=== PATIENT | female | born 1940 | race Caucasian/White ===

== ENCOUNTER → 2019-05-18 13:54 | Outpatient (BNVA) | payer MEDICARE, OTHER, SELFPAY | PROVIDERS: PCP Nurse Practitioner Family; Visit Provider Nurse Practitioner Family | DX: N39.0 Urinary tract infection, site not specified (principal); R13.10 Dysphagia, unspecified | CPT/HCPCS: 81003 ==

== ENCOUNTER → 2019-07-09 10:25 | Outpatient (BNVA) | payer MEDICARE, OTHER, SELFPAY | PROVIDERS: PCP Registered Nurse; Visit Provider Registered Nurse | DX: R39.9 Unspecified symptoms and signs involving the genitourinary system (principal) | CPT/HCPCS: 81003; 87077; 87086; 87186 ==

== ENCOUNTER → 2019-07-15 10:14 | Outpatient (BNVA) | payer MEDICARE, OTHER, SELFPAY | PROVIDERS: PCP Registered Nurse; Visit Provider Nurse Practitioner Family | DX: R39.9 Unspecified symptoms and signs involving the genitourinary system (principal); J45.990 Exercise induced bronchospasm; N39.0 Urinary tract infection, site not specified | CPT/HCPCS: 81003; 87077; 87086; 87186 ==

== ENCOUNTER → 2019-09-21 11:59 | Outpatient (BNVA) | payer MEDICARE, OTHER, SELFPAY | PROVIDERS: PCP Registered Nurse; Visit Provider Urology | DX: N30.80 Other cystitis without hematuria (principal) | CPT/HCPCS: 80053; 81001 ==

== ENCOUNTER → 2019-10-15 08:13 | Outpatient (BNVA) | payer MEDICARE, OTHER, SELFPAY | PROVIDERS: PCP Registered Nurse; Visit Provider Nurse Practitioner Family | DX: I10 Essential (primary) hypertension (principal); R06.02 Shortness of breath; R53.81 Other malaise; L98.9 Disorder of the skin and subcutaneous tissue, unspecified; R31.9 Hematuria, unspecified; D64.9 Anemia, unspecified; R60.0 Localized edema; R06.00 Dyspnea, unspecified | CPT/HCPCS: 80053 ==

== ENCOUNTER → 2019-11-16 15:00 | Outpatient (BNVA) | payer MEDICARE, OTHER, SELFPAY | PROVIDERS: PCP Registered Nurse; Visit Provider Urology | DX: N39.0 Urinary tract infection, site not specified (principal); R31.29 Other microscopic hematuria | CPT/HCPCS: 80053; 81001 ==

== ENCOUNTER → 2019-11-17 15:47 | Outpatient (BNVA) | payer MEDICARE, OTHER, SELFPAY | PROVIDERS: PCP Registered Nurse; Visit Provider Urology | DX: R31.29 Other microscopic hematuria (principal); N39.0 Urinary tract infection, site not specified | CPT/HCPCS: 88112 ==

== ENCOUNTER 2020-08-22 13:01 | Emergency (ER) | payer MEDICARE, OTHER, SELFPAY ==
[2020-08-22 13:02] VITALS: BP 127/79; PULSE 72; RESP 26; TEMP 37.1; O2SAT 99; BMI 22.4
--- NOTE | 2020-08-22 13:31 | XRR_ITS ---
PROCEDURE INFORMATION: Exam: XR Chest Exam date and time: 08/22/2020 1:57 PM Age: 79 years old Clinical indication: Cough and dyspnea; Prior surgery; Surgery type: Heart, altered mental status, syncope; Additional info: Dyspnea/cough TECHNIQUE: Imaging protocol: XR of the chest. Views: 1 view. COMPARISON: CR Chest 1 [place] [id number] 11/25/2018 4:05 PM FINDINGS: Tubes, catheters and devices: Interval placement of left pacemaker device. Lungs: Stable left calcified hilar nodes and/or mediastinal nodes and/or lung nodules consistent with old granulomatous disease. Pleural spaces: Unremarkable. No pleural effusion. No pneumothorax. Heart/Mediastinum: Stable aortic valve replacement. Vasculature: Calcification of the thoracic aorta and/or great vessels consistent with atherosclerotic vessel disease. Bones/joints: Stable sternotomy. XR/XR chest 1V portable [id number] IMPRESSION: 1. Interval placement of left pacemaker device. 2. Stable aortic valve replacement.
--- NOTE | 2020-08-22 13:31 | W.ED.SYNCOPE ---
HPI - Syncope General: Chief Complaint: Syncope Stated Complaint: SYNCOPE Time Seen by Provider: 08/22/20 13:02 History of Present Illness: HPI narrative: 79-year-old female presents emergency room after syncopal episode at home. is with her at the bedside. She relates that she was sitting at home was about to go to [place] to get up checkup on a pacemaker that was placed 2 weeks ago. He was having rate control issues due to atrial fibrillation, it was ultimately decided to place pacemaker in. She had a syncopal episode and passed out. She denies any recent fever sweats or chills no other illness no shortness of breath or cough she is not having any chest pain now. 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 She is able to answer most questions at this time. MD complaint: loss of consciousness Onset (ago): minute(s) Prodromal symptoms: none Witnessed: Yes - by Bystander Context: at rest Injuries sustained associated with event: none Associated symptoms: Reports weakness; Deny abdominal pain, chest pain, fever(s), headache(s), lightheadedness, nausea, short of breath or vertigo Treatments prior to arrival: none Review of Systems Const: Denies: fever(s) ENMT: Denies: throat pain, ear or mastoid pain, nasal discharge or nasal congestion Card: Denies: chest pain or lightheadedness Resp: Denies: dyspnea, productive cough or non-productive cough GI: Denies: abdominal pain or nausea : Denies: flank pain, difficulty voiding, dysuria, urinary frequency or urinary urgency Skin/Breast: Denies: rash or pruritus Neuro: Denies: headache(s) or vertigo PFSH ED PFSH: Medical History Anxiety Constipation Diverticulosis Dysphagia Dysphagia GERD (gastroesophageal reflux disease) H/O: CVA (cerebrovascular accident) Hypercholesterolemia Hypertension Other microscopic hematuria Recurrent UTI Surgical History H/O colonoscopy yrs ago H/O esophagogastroduodenoscopy never had one H/O mitral valve replacement History of appendectomy History of hysterectomy History of renal stent History of tonsillectomy Family History Brother Cancer Hyperlipidemia Father Heart disease Stroke Sister Bleeding disorder hemorrhaged Other CAD (coronary artery disease) Hypertension Denies family history of Anesthesia complication Social History Smoking and tobacco status: never smoked Alcohol intake: never Lives independently: No Household members: spouse Housing: House Marital status: Current occupational status: disabled Current gender identity: Female Physical Exam Const: COMMON NORMALS: no acute distress GENERAL APPEARANCE: cooperative and comfortable ORIENTATION/CONSCIOUSNESS: Yes awake HENMT: COMMON NORMALS: normocephalic, atraumatic and hearing grossly normal bilaterally HEAD & SCALP: normocephalic and atraumatic Neck/C-Spine: COMMON NORMALS: no JVD Resp: COMMON NORMALS: normal respiratory effort, No retractions, No use of accessory muscles and clear to auscultation bilaterally AUSCULTATION: clear to auscultation bilaterally Cardio: COMMON NORMALS: no JVD, regular rate, regular rhythm and No murmurs present (Cardio) RATE: regular rate RHYTHM: regular rhythm GI: COMMON NORMALS: Soft to palpation and No hepatosplenomegaly present AUSCULTATION: Yes normoactive bowel sounds PALPATION: Yes Soft to palpation, No Tenderness to palpation present (GI), No Guarding due to palpation present (GI) and Yes No hepatosplenomegaly present Extremity: COMMON NORMALS: normal to inspection, capillary refill normal, no clubbing, cyanosis or edema, no calf tenderness and no pedal edema Skin: COMMON NORMALS: no rashes or lesions noted GENERAL SKIN EXAM: no rashes or lesions noted Course Vital Signs: Vital signs: Vital Signs Temperature 98.8 F 08/22/20 13:02 Pulse Rate 93 08/22/20 17:01 Respiratory Rate 18 08/22/20 17:01 Blood Pressure 102/63 08/22/20 14:28 Pulse Oximetry 97 08/22/20 17:01 MDM - Syncope MDM Narrative: Medical decision making narrative: Patient monitored in the ER for a time we are trying to make arrangements to get the pacer interrogated. We were able to establish that she has a different type of pacer the need for monitoring devices to interrogate here are. She will have to go to [place] to get it done. Discussed with her for now we will [facility] they can monitor there she has another episode should return to the emergency room otherwise follow-up tomorrow with cardiology as planned. Lab Data: Attestation: I reviewed the patient's lab results. Labs: Lab Results 08/22/20 08/22/20 08/22/20 Range/Units 14:09 14:09 14:09 WBC 6.7 (4.0-10.0) 10^3/ uL RBC 3.84 L (4.1-5.3) 10^6/u L Hgb 12.2 (11.5-15.3) g/dL Hct 39.3 (37.0-47.0) % MCV 102.3 H (81-99) fL MCH 31.8 (28.0-34.0) pg MCHC 31.0 (30.0-36.0) g/dL RDW 14.6 (12.1-15.1) % Plt Count 233 (130-400) 10^3/c mm MPV 10.1 (7.4-10.4) fL Neut % (Auto) 72.6 % Lymph % (Auto) 18.4 % Sherman % (Auto) 5.2 % Eos % (Auto) 2.5 % Baso % (Auto) 1.0 % Neut # (Auto) 4.83 (1.8-7.7) 10^3/u L Lymph # (Auto) 1.2 (0.8-4.8) 10^3/u L Sherman # (Auto) 0.4 (0.2-0.9) 10^3/u L Eos # (Auto) 0.2 (0.0-0.8) 10^3/u L Baso # (Auto) 0.1 (0.0-0.1) 10^3/u L Nucleated RBC % (a uto) 0 % Nucleated RBCs # 0.0 /100WBC Sodium 145 (136-145) mmol/L Potassium 4.4 (3.5-5.1) mmol/L Chloride 110 H (98-107) mmol/L Carbon Dioxide 27 (22-29) mmol/L Anion Gap 12.4 (5-19) BUN 17 (8-23) mg/dL Creatinine 0.9 (0.5-0.9) mg/dL GFR Calculation Not Reportable Glucose 94 (65-115) mg/dL Calculated Osmolal ity 301 H (285-295) mOsm/k g Calcium 8.5 (8.5-10.5) mg/dL Total Bilirubin 0.6 (0.15-1.2) mg/dL AST 22 (0-32) U/L ALT 14 (0-33) U/L Alkaline Phosphata se 186 H (35-105) IU/L Total Protein 6.7 (6.6-8.7) g/dL Albumin 3.6 (3.5-5.2) g/dL Globulin 3.1 (1.3-4.6) g/dL Urine Color Yellow (Yellow) Urine Appearance Cloudy (CLEAR) Urine pH 7 (5-7) Ur Specific Gravit y 1.015 (1.005-1.030) Urine Protein Neg (Negative) Urine Glucose (UA) Norm (Normal) Urine Ketones Negative (Negative) Urine Blood 3+ H (Negative) Urine Nitrate Negative (Negative) Urine Bilirubin Neg (Negative) Urine Urobilinogen Norm (Negative) mg/dL Ur Leukocyte Kristie ase Trace H (Negative) Urine RBC 15-25 H (0-2) /hpf Urine WBC 10-15 H (0-5) /hpf Ur Squamous Epith Cells 0-4 H (0-5) /hpf Amorphous Sediment Not Reportable Urine Bacteria 1+ H (NONE) /hpf Urine Mucus 1+ /hpf Urine Yeast 2+ H /hpf Discharge Plan Discharge Patient Disposition: Home Clinical Impression: Syncope, Hypertension, Atrial fibrillation, H/O prosthetic mitral valve Condition: Stable Prescriptions: No Action zinc oxide 40 % ointment 1 applic TOPICAL 6XD PRN (Reason: UNKNOWN) RF: 0 acetaminophen 325 mg capsule 325 mg PO DAILY PRN (Reason: Pain) RF: 0 polyethylene glycol 3350 [Miralax] 17 gram/dose powder 17 gm PO DAILY@0800 RF: 0 sennosides [senna] 8.6 mg tablet 17.2 mg PO BID@0800,1999 PRN (Reason: Constipation) RF: 0 magnesium 250 mg tablet 500 mg PO DAILY@0800 RF: 0 aspirin 81 mg tablet,delayed release (DR/EC) 81 mg PO DAILY@1999 RF: 0 dicyclomine 10 mg capsule 10 mg PO QID PRN (Reason: UNKNOWN) RF: 0 docusate sodium 100 mg capsule 100 mg PO BID@799,1999 RF: 0 albuterol sulfate [ProAir HFA] 90 mcg/actuation HFA aerosol inhaler 2 puff INHALATION Q6H PRN (Reason: shortness of breath or wheezing) Qty: 6.7 RF: 0 budesonide [Rhinocort Allergy] 32 mcg/actuation spray,non-aerosol 1 spray INTRANASAL DAILY PRN (Reason: nose bleed) Qty: 8.43 RF: 0 hydrocodone-acetaminophen 5-325 mg Tablet 1 tab PO Q6H PRN (Reason: Pain) RF: 0 donepezil 10 mg Tablet 10 mg PO DAILY@1999 RF: 0 Vitamin B-12 1,000 mcg Tablet 1,000 mcg PO DAILY@0800 RF: 0 linezolid 600 mg Tablet 600 mg PO BID@799,1999 RF: 0 Vitamin D3 25 mcg (1,000 unit) Tablet 25 mcg PO DAILY@0800 RF: 0 TwoCal HN 0.08-2 gram-kcal/mL Liquid 1 ea PO TID@0800,1199,1999 RF: 0 Fish Oil 1,000 mg PO DAILY@0800 RF: 0 multivitamin 1 tab PO DAILY@08 RF: 0 atorvastatin 40 mg tablet 40 mg PO DAILY@1999 RF: 0 enalapril maleate 20 mg tablet 10 mg PO DAILY@0800 RF: 0 Xanax 0.25 mg tablet 0.25 mg PO BID@0630,0 RF: 0 pantoprazole 40 mg tablet,delayed release (DR/EC) 40 mg PO BID@799,1999 RF: 0 metoprolol tartrate 50 mg tablet 75 mg PO BID@799,1999 RF: 0 Eliquis 5 mg tablet 2.5 mg PO BID@799,1999 RF: 0 Discharge Orders: Discharge ED (Routine); Ordered 08/22/20 Ordered By: Star Christine Referrals: Becka Roth FNP [Primary Care Provider] - Discharge Diet: Usual diet Discharge Activity: Limit activity as instructed Patient Instructions: Opioid Safety Activity Restrictions/Additional Instructions: Follow-up with your fancy needleworker tomorrow to have the pacemaker interrogated. Coding Level of Care Code ED Bilingual Social Worker for Daniel Fwd Exam Comprehensive
[2020-08-22] MEDS: sodium chloride 0.9% 500 ML 999 ML IV (14:12)
[2020-08-22 14:17] LABS: Basophils # 0.1 10^3/uL (0.0-0.1); Eosinophils # 0.2 10^3/uL (0.0-0.8); Eosinophils % 2.5 %; Hematocrit 39.3 % (37.0-47.0); Hemoglobin 12.2 g/dL (11.5-15.3); Lymphocytes # 1.2 10^3/uL (0.8-4.8); Lymphocytes % 18.4 %; Mean Corpuscular Hemoglobin 31.8 pg (28.0-34.0); Mean Corpuscular Volume 102.3 fL (81-99); Mean Platelet Volume 10.1 fL (7.4-10.4); Monocytes # 0.4 10^3/uL (0.2-0.9); Monocytes % 5.2 %; Neutrophils # 4.83 10^3/uL (1.8-7.7); Neutrophils % 72.6 %; Nucleated Red Blood Cells % 0 %; Platelet Count 233 10^3/cmm (130-400); Red Blood Count 3.84 10^6/uL (4.1-5.3); Red Cell Distribution Width 14.6 % (12.1-15.1); White Blood Count 6.7 10^3/uL (4.0-10.0)
[2020-08-22 14:28] VITALS: BP 102/63; PULSE 103; RESP 18; O2SAT 98
[2020-08-22 14:41] LABS: Add Urine Microscopic? YES; Bilirubin Urine Neg (Negative); Blood Urine 3+ (Negative); Glucose Urine UA Norm (Normal); Ketones Urine Negative (Negative); Leukocyte Esterase Urine Trace (Negative); Nitrate Urine Negative (Negative); Protein Urine Neg (Negative); Specific Gravity, Urine 1.015 (1.005-1.030); Urine Appearance Cloudy (CLEAR); Urine Color Yellow (Yellow); Urobilinogen Urine Norm (Negative); pH Urine 7 (5-7)
[2020-08-22 14:44] LABS: Alanine Aminotransferase 14 U/L (0-33); Albumin Level 3.6 g/dL (3.5-5.2); Alkaline Phosphatase 186 IU/L (35-105); Anion Gap 12.4 (5-19); Aspartate Amino Transferase 22 U/L (0-32); Blood Urea Nitrogen 17 mg/dL (8-23); Calcium 8.5 mg/dL (8.5-10.5); Carbon Dioxide 27 mmol/L (22-29); Chloride 110 mmol/L (98-107); Globulin 3.1 g/dL (1.3-4.6); Glucose 94 mg/dL (65-115); Osmolality Calculated 301 mOsm/kg (285-295); Potassium 4.4 mmol/L (3.5-5.1); Sodium 145 mmol/L (136-145); Total Bilirubin 0.6 mg/dL (0.15-1.2); Total Protein 6.7 g/dL (6.6-8.7)
[2020-08-22 15:02] LABS: Add Urine Culture? Yes; Bacteria Urine 1+ /hpf; Mucus Urine 1+ /hpf; RBC Urine 15-25 /hpf (0-2); Squamous Epithelial Cell Urine 0-4 /hpf (0-5)
[2020-08-22 17:01] VITALS: PULSE 93; RESP 18; O2SAT 97
[2020-08-22 18:50] VITALS: BP 134/74; PULSE 87; RESP 18; O2SAT 98
[2020-08-22 20:21] VITALS: BP 136/70; PULSE 102; RESP 14; O2SAT 96
== END 2020-08-22 21:03 | disposition home or self-care (01) ==
PROVIDERS: Emergency Provider Family Medicine; PCP Registered Nurse
DX: R55 Syncope and collapse (principal); I48.91 Unspecified atrial fibrillation; Z95.2 Presence of prosthetic heart valve; I10 Essential (primary) hypertension; Z79.82 Long term (current) use of aspirin; Z79.01 Long term (current) use of anticoagulants; Z86.73 Personal history of transient ischemic attack (TIA), and cerebral infarction without residual deficits; Z79.899 Other long term (current) drug therapy
CPT/HCPCS: 71045; 80053; 81001; 85025; 87086; 87106; 96360; 99284; 99291; J7040

== ENCOUNTER 2020-11-07 22:54 | Emergency (ER) | payer MEDICARE, MEDICAID, SELFPAY ==
[2020-11-07 22:57] VITALS: BP 119/47; PULSE 82; RESP 16; TEMP 37.2; O2SAT 97; BMI 24.7
--- NOTE | 2020-11-07 23:07 | CTR_ITS ---
PROCEDURE INFORMATION: Exam: CT Abdomen And Pelvis Without Contrast Exam date and time: 11/07/2020 11:07 PM Age: 79 years old Clinical indication: Other: Vaginal bleeding; Prior surgery; Surgery date: 6+ months; Surgery type: Mitral valve, appy, hyst, renal stent, left hip TECHNIQUE: Imaging protocol: Computed tomography of the abdomen and pelvis without contrast. Radiation optimization: All CT scans at this facility use at least one of these dose optimization techniques: automated exposure control; mA and/or kV adjustment per patient size (includes targeted exams where dose is matched to clinical indication); or iterative reconstruction. COMPARISON: CT pelvis wo con [id number] 03/29/2018 5:16 AM RADIATION DOSE METRICS: Total DLP (mGy-cm): 1035.39 FINDINGS: Tubes, catheters and devices: Pacemaker leads in the heart. Lungs: Calcified granuloma in the left lower lobe. Heart: Mitral annulus calcifications. Liver: Normal. No mass. Gallbladder and bile ducts: Normal. No calcified stones. No ductal dilation. Pancreas: Normal. No ductal dilation. Spleen: Calcified granulomas in the spleen. Adrenal glands: Normal. No mass. Kidneys and ureters: Atrophic left kidney. 8 mm calculus in the right renal pelvis. Mild pelviectasis with mild adjacent fat stranding. Additional calculi in the right kidney measuring up to 7 mm. Stomach and bowel: Large amount of stool in the rectum. Diverticulosis the sigmoid colon. No diverticulitis.. The stomach and small bowel are unremarkable. No obstruction. Appendix: The appendix is not visualized. No secondary signs of appendicitis Intraperitoneal space: Unremarkable. No free air. No significant fluid collection. Vasculature: Atherosclerotic calcifications. No aneurysm. Lymph nodes: Unremarkable. No enlarged lymph nodes. Urinary bladder: Small amount of gas in the urinary bladder is most likely due to catheterization. No wall thickening. Reproductive: The uterus and ovaries are absent. Bones/joints: Compression screws in the proximal left femur. Lumbar curvature and degenerative changes. No acute fracture. Soft tissues: Unremarkable. CT/CT abdomen pelvis con [id number] IMPRESSION: 1. Multiple right renal calculi including an 8 mm calculus in the right renal pelvis. Fat stranding surrounding the right renal pelvis is suspicious for infection of the collecting system. Clinical correlation recommended. 2. Atrophic left kidney. 3. Diverticulosis of the distal colon. Radiation Dose CTDIVOL = (mGy): DLP = 1035.39 (mGy-cm)
--- NOTE | 2020-11-07 23:09 | W.ED.FEMALGU ---
HPI - Female Genitourinary General: Chief complaint: Vaginal Bleeding Stated complaint: VAG BLEEDING Time Seen by Provider: 11/07/20 22:59 Source: patient and EMS Mode of arrival: EMS Limitations: no limitations History of Present Illness: HPI Narrative: 79-year-old female [facility] from [facility] with vaginal bleeding. She states that she had noticed some bleeding this morning when she went to the bathroom. [facility] states that when they change her depends and noticed blood from her vagina. She denies any weakness. She denies any pain. She is on Eliquis. She denies any worsening improving factors. Associated symptoms: Deny abdominal pain, headache(s) or nausea Review of Systems Const: Denies: fever(s), chills, body aches or change in appetite Eyes: Denies: blurry vision or eye discomfort ENMT: Denies: throat pain or dental pain Card: Denies: chest pain Resp: Denies: dyspnea GI: Denies: abdominal pain, nausea, vomiting or diarrhea : Reports: vaginal bleeding Musc: Denies: neck pain or back pain Skin/Breast: Denies: rash Neuro: Denies: headache(s) Psych: Denies: depression Atlon/Lymph: Denies: easy bruising All/Imm: Denies: urticaria PFSH ED PFSH: Medical History Anxiety Constipation Diverticulosis Dysphagia Dysphagia GERD (gastroesophageal reflux disease) H/O: CVA (cerebrovascular accident) Hypercholesterolemia Hypertension Other microscopic hematuria Recurrent UTI Surgical History H/O colonoscopy yrs ago H/O esophagogastroduodenoscopy never had one H/O mitral valve replacement History of appendectomy History of hysterectomy History of renal stent History of tonsillectomy Family History Brother Cancer Hyperlipidemia Father Heart disease Stroke Sister Bleeding disorder hemorrhaged Other CAD (coronary artery disease) Hypertension Denies family history of Anesthesia complication Social History Smoking and tobacco status: never smoked Alcohol intake: never Lives independently: No Household members: spouse Housing: House Marital status: Current occupational status: disabled Current gender identity: Female Physical Exam Const: COMMON NORMALS: no acute distress, patient oriented x3 and healthy appearing HENMT: COMMON NORMALS: normocephalic and atraumatic HEAD & SCALP: normocephalic and atraumatic Eye: COMMON NORMALS: Equal, round and reactive pupils present and EOMs intact bilaterally PUPIL: Yes Equal, round and reactive pupils present Neck/C-Spine: COMMON NORMALS: full ROM and supple Chest: COMMONS NORMALS: normal inspection of the chest and normal palpation of entire chest wall Resp: COMMON NORMALS: normal respiratory effort, No retractions, No use of accessory muscles and clear to auscultation bilaterally AUSCULTATION: clear to auscultation bilaterally Cardio: COMMON NORMALS: regular rate, regular rhythm and No murmurs present (Cardio) RATE: regular rate RHYTHM: regular rhythm GI: COMMON NORMALS: Normal to inspection, nondistended, normoactive bowel sounds present, Soft to palpation, non-tender and no masses PALPATION: Yes Soft to palpation Extremity: COMMON NORMALS: normal to inspection and full ROM Neuro: COMMON NORMALS: patient oriented x3, moves all extremities and no focal motor deficits Psych: COMMON NORMALS: mental status grossly normal, Normal thought process present and cooperative THOUGHT PROCESS: Normal thought process present Skin: COMMON NORMALS: no rashes or lesions noted and no wounds GENERAL SKIN EXAM: no rashes or lesions noted Course Vital Signs: Vital signs: Vital Signs Temperature 98.9 F 11/07/20 22:57 Pulse Rate 86 11/08/20 01:21 Respiratory Rate 18 11/08/20 01:21 Blood Pressure 110/56 11/08/20 01:21 Pulse Oximetry 98 11/08/20 01:21 MDM - Female [facility] Narrative: Medical decision making narrative: Patient presents here with hematuria likely causing the blood in her depends. CT showed renal stone and possible kidney infection. Her white count here is normal and she has no signs of sepsis. Spoke to family in the room they would like her discharged back to [facility] on antibiotics. Will start on Macrobid and have him hold her Eliquis as well. Her hemoglobin here is normal. She is to return if worsening. Lab Data: Labs: Lab Results 11/08/20 11/08/20 11/08/20 Range/Units 00:17 00:17 00:17 WBC 9.4 (4.0-10.0) 10^3/ uL RBC 4.39 (4.1-5.3) 10^6/u L Hgb 12.6 (11.5-15.3) g/dL Hct 40.7 (37.0-47.0) % MCV 92.7 (81-99) fL MCH 28.7 (28.0-34.0) pg MCHC 31.0 (30.0-36.0) g/dL RDW 16.0 H (12.1-15.1) % Plt Count 246 (130-400) 10^3/c mm MPV 10.3 (7.4-10.4) fL Neut % (Auto) 55.5 % Lymph % (Auto) 31.0 % Concho % (Auto) 6.8 % Eos % (Auto) 5.7 % Baso % (Auto) 0.8 % Neut # (Auto) 5.23 (1.8-7.7) 10^3/u L Lymph # (Auto) 2.9 (0.8-4.8) 10^3/u L Concho # (Auto) 0.6 (0.2-0.9) 10^3/u L Eos # (Auto) 0.5 (0.0-0.8) 10^3/u L Baso # (Auto) 0.1 (0.0-0.1) 10^3/u L Nucleated RBC % (a uto) 0 % Nucleated RBCs # 0.0 /100WBC PT 15.70 H (12.1-14.9) SECO NDS INR 1.22 H (0.8-1.2) Sodium 140 (136-145) mmol/L Potassium 3.7 (3.5-5.1) mmol/L Chloride 104 (98-107) mmol/L Carbon Dioxide 24 (22-29) mmol/L Anion Gap 15.7 (5-19) BUN 10 (8-23) mg/dL Creatinine 0.6 (0.5-0.9) mg/dL GFR Calculation Not Reportable Glucose 97 (65-115) mg/dL Calculated Osmolal ity 289 (285-295) mOsm/k g Calcium 9.4 (8.5-10.5) mg/dL Total Bilirubin 0.4 (0.15-1.2) mg/dL AST 10 (0-32) U/L ALT < 5 (0-33) U/L Alkaline Phosphata se 105 (35-105) IU/L Total Protein 7.0 (6.6-8.7) g/dL Albumin 3.5 (3.5-5.2) g/dL Globulin 3.5 (1.3-4.6) g/dL Urine Color (Yellow) Urine Appearance (CLEAR) Urine pH (5-7) Ur Specific Gravit y (1.005-1.030) Urine Protein (Negative) Urine Glucose (UA) (Normal) Urine Ketones (Negative) Urine Blood (Negative) Urine Nitrate (Negative) Urine Bilirubin (Negative) Prot Sulfosalicyli c Acd (Negative) Urine Urobilinogen (Negative) mg/dL Ur Leukocyte Kristie ase (Negative) Urine RBC (0-2) /hpf Urine WBC (0-5) /hpf Ur Squamous Epith Cells (0-5) /hpf Amorphous Sediment Urine Bacteria (NONE) /hpf 11/08/20 Range/Units 00:35 WBC (4.0-10.0) 10^3/ uL RBC (4.1-5.3) 10^6/u L Hgb (11.5-15.3) g/dL Hct (37.0-47.0) % MCV (81-99) fL MCH (28.0-34.0) pg MCHC (30.0-36.0) g/dL RDW (12.1-15.1) % Plt Count (130-400) 10^3/c mm MPV (7.4-10.4) fL Neut % (Auto) % Lymph % (Auto) % Concho % (Auto) % Eos % (Auto) % Baso % (Auto) % Neut # (Auto) (1.8-7.7) 10^3/u L Lymph # (Auto) (0.8-4.8) 10^3/u L Concho # (Auto) (0.2-0.9) 10^3/u L Eos # (Auto) (0.0-0.8) 10^3/u L Baso # (Auto) (0.0-0.1) 10^3/u L Nucleated RBC % (a uto) % Nucleated RBCs # /100WBC PT (12.1-14.9) SECO NDS INR (0.8-1.2) Sodium (136-145) mmol/L Potassium (3.5-5.1) mmol/L Chloride (98-107) mmol/L Carbon Dioxide (22-29) mmol/L Anion Gap (5-19) BUN (8-23) mg/dL Creatinine (0.5-0.9) mg/dL GFR Calculation Glucose (65-115) mg/dL Calculated Osmolal ity (285-295) mOsm/k g Calcium (8.5-10.5) mg/dL Total Bilirubin (0.15-1.2) mg/dL AST (0-32) U/L ALT (0-33) U/L Alkaline Phosphata se (35-105) IU/L Total Protein (6.6-8.7) g/dL Albumin (3.5-5.2) g/dL Globulin (1.3-4.6) g/dL Urine Color Red (Yellow) Urine Appearance Cloudy (CLEAR) Urine pH 8 H (5-7) Ur Specific Gravit y 1.010 (1.005-1.030) Urine Protein 2+ H (Negative) Urine Glucose (UA) Norm (Normal) Urine Ketones Negative (Negative) Urine Blood 3+ H (Negative) Urine Nitrate Negative (Negative) Urine Bilirubin Neg (Negative) Prot Sulfosalicyli c Acd Positive (Negative) Urine Urobilinogen Norm (Negative) mg/dL Ur Leukocyte Kristie ase 1+ H (Negative) Urine RBC Too numerous to c nt H (0-2) /hpf Urine WBC 5-10 H (0-5) /hpf Ur Squamous Epith Cells 0-4 H (0-5) /hpf Amorphous Sediment Not Reportable Urine Bacteria 4+ H (NONE) /hpf Imaging Data: CT Abd/Pel: Attestation: I personally reviewed and interpreted this imaging study as follows: Radiologist's impression: [address] [address] [address] Scan Report Signed Patient: Freda Kline Unit #: [id number] : 1940 Age/Sex: 79 / F ADM Date: 11/07/20 Loc: ER Room/Bed: Attending Dr: Ordering Provider/Ordering MD: Jeffery Lewis MD Date of Service: 11/07/20 Procedure(s): CT abdomen pelvis con [id number] Accession Number(s): [id number] Report Number: [id number] PROCEDURE INFORMATION: Exam: CT Abdomen And Pelvis Without Contrast Exam date and time: 11/07/2020 11:07 PM Age: 79 years old Clinical indication: Other: Vaginal bleeding; Prior surgery; Surgery date: 6+ months; Surgery type: Mitral valve, appy, hyst, renal stent, left hip TECHNIQUE: Imaging protocol: Computed tomography of the abdomen and pelvis without contrast. Radiation optimization: All CT scans at this facility use at least one of these dose optimization techniques: automated exposure control; mA and/or kV adjustment per patient size (includes targeted exams where dose is matched to clinical indication); or iterative reconstruction. COMPARISON: CT pelvis wo con [id number] 03/29/2018 5:16 AM RADIATION DOSE METRICS: Total DLP (mGy-cm): 1035.39 FINDINGS: Tubes, catheters and devices: Pacemaker leads in the heart. Lungs: Calcified granuloma in the left lower lobe. Heart: Mitral annulus calcifications. Liver: Normal. No mass. Gallbladder and bile ducts: Normal. No calcified stones. No ductal dilation. Pancreas: Normal. No ductal dilation. Spleen: Calcified granulomas in the spleen. Adrenal glands: Normal. No mass. Kidneys and ureters: Atrophic left kidney. 8 mm calculus in the right renal pelvis. Mild pelviectasis with mild adjacent fat stranding. Additional calculi in the right kidney measuring up to 7 mm. Stomach and bowel: Large amount of stool in the rectum. Diverticulosis the sigmoid colon. No diverticulitis.. The stomach and small bowel are unremarkable. No obstruction. Appendix: The appendix is not visualized. No secondary signs of appendicitis Intraperitoneal space: Unremarkable. No free air. No significant fluid collection. Vasculature: Atherosclerotic calcifications. No aneurysm. Lymph nodes: Unremarkable. No enlarged lymph nodes. Urinary bladder: Small amount of gas in the urinary bladder is most likely due to catheterization. No wall thickening. Reproductive: The uterus and ovaries are absent. Bones/joints: Compression screws in the proximal left femur. Lumbar curvature and degenerative changes. No acute fracture. Soft tissues: Unremarkable. CT/CT abdomen pelvis wo con [id number] IMPRESSION: 1. Multiple right renal calculi including an 8 mm calculus in the right renal pelvis. Fat stranding surrounding the right renal pelvis is suspicious for infection of the collecting system. Clinical correlation recommended. 2. Atrophic left kidney. 3. Diverticulosis of the distal colon. Discharge Plan Discharge Patient Disposition: Home Clinical Impression: Recurrent UTI, Hematuria Condition: Stable Prescriptions: New cephalexin 500 mg capsule 500 mg PO QID 7 Days Qty: 28 RF: 0 No Action zinc oxide 40 % ointment 1 applic TOPICAL 6XD PRN (Reason: UNKNOWN) RF: 0 acetaminophen 325 mg capsule 325 mg PO DAILY PRN (Reason: Pain) RF: 0 polyethylene glycol 3350 [Miralax] 17 gram/dose powder 17 gm PO DAILY@0800 RF: 0 sennosides [senna] 8.6 mg tablet 17.2 mg PO BID@799,1999 PRN (Reason: Constipation) RF: 0 magnesium 250 mg tablet 500 mg PO DAILY@0800 RF: 0 aspirin 81 mg tablet,delayed release (DR/EC) 81 mg PO DAILY@1999 RF: 0 dicyclomine 10 mg capsule 10 mg PO QID PRN (Reason: UNKNOWN) RF: 0 docusate sodium 100 mg capsule 100 mg PO BID@799,1999 RF: 0 albuterol sulfate [ProAir HFA] 90 mcg/actuation HFA aerosol inhaler 2 puff INHALATION Q6H PRN (Reason: shortness of breath or wheezing) Qty: 6.7 RF: 0 budesonide [Rhinocort Allergy] 32 mcg/actuation spray,non-aerosol 1 spray INTRANASAL DAILY PRN (Reason: nose bleed) Qty: 8.43 RF: 0 hydrocodone-acetaminophen 5-325 mg Tablet 1 tab PO Q6H PRN (Reason: Pain) RF: 0 donepezil 10 mg Tablet 10 mg PO DAILY@1999 RF: 0 Vitamin B-12 1,000 mcg Tablet 1,000 mcg PO DAILY@0800 RF: 0 linezolid 600 mg Tablet 600 mg PO BID@799,1999 RF: 0 Vitamin D3 25 mcg (1,000 unit) Tablet 25 mcg PO DAILY@0800 RF: 0 TwoCal HN 0.08-2 gram-kcal/mL Liquid 1 ea PO TID@0800,1199,1999 RF: 0 Fish Oil 1,000 mg PO DAILY@0800 RF: 0 multivitamin 1 tab PO DAILY@08 RF: 0 atorvastatin 40 mg tablet 40 mg PO DAILY@1999 RF: 0 enalapril maleate 20 mg tablet 10 mg PO DAILY@0800 RF: 0 Xanax 0.25 mg tablet 0.25 mg PO BID@629,0 RF: 0 pantoprazole 40 mg tablet,delayed release (DR/EC) 40 mg PO BID@799,1999 RF: 0 metoprolol tartrate 50 mg tablet 75 mg PO BID@799,1999 RF: 0 Eliquis 5 mg tablet 2.5 mg PO BID@799,1999 RF: 0 Discharge Orders: Discharge ED (Routine); Ordered 11/08/20 Ordered By: Jeffery Lewis Referrals: Becka Roth FNP [Primary Care Provider] - 1-3 days Discharge Diet: Advance as tolerated Discharge Activity: Resume usual activity Patient Instructions: Urinary Tract Infection in Women (ED), Acute Hematuria (ED) Activity Restrictions/Additional Instructions: Hold eliquis for 5 days Coding Level of Care Code ED Regulatory Submissions Associate for Daniel Fwd Exam Comprehensive
[2020-11-08 00:22] LABS: Basophils # 0.1 10^3/uL (0.0-0.1); Basophils % 0.8 %; Eosinophils # 0.5 10^3/uL (0.0-0.8); Eosinophils % 5.7 %; Hematocrit 40.7 % (37.0-47.0); Hemoglobin 12.6 g/dL (11.5-15.3); Lymphocytes # 2.9 10^3/uL (0.8-4.8); Mean Corpuscular Hemoglobin 28.7 pg (28.0-34.0); Mean Corpuscular Volume 92.7 fL (81-99); Mean Platelet Volume 10.3 fL (7.4-10.4); Monocytes # 0.6 10^3/uL (0.2-0.9); Monocytes % 6.8 %; Neutrophils # 5.23 10^3/uL (1.8-7.7); Neutrophils % 55.5 %; Nucleated Red Blood Cells % 0 %; Platelet Count 246 10^3/cmm (130-400); Red Blood Count 4.39 10^6/uL (4.1-5.3); White Blood Count 9.4 10^3/uL (4.0-10.0)
[2020-11-08 00:39] LABS: Alanine Aminotransferase < 5 U/L (0-33); Albumin Level 3.5 g/dL (3.5-5.2); Alkaline Phosphatase 105 IU/L (35-105); Anion Gap 15.7 (5-19); Aspartate Amino Transferase 10 U/L (0-32); Blood Urea Nitrogen 10 mg/dL (8-23); Calcium 9.4 mg/dL (8.5-10.5); Carbon Dioxide 24 mmol/L (22-29); Chloride 104 mmol/L (98-107); Globulin 3.5 g/dL (1.3-4.6); Glucose 97 mg/dL (65-115); Osmolality Calculated 289 mOsm/kg (285-295); Potassium 3.7 mmol/L (3.5-5.1); Sodium 140 mmol/L (136-145); Total Bilirubin 0.4 mg/dL (0.15-1.2)
[2020-11-08 01:08] LABS: INR 1.22 (0.8-1.2)
[2020-11-08 01:21] VITALS: BP 110/56; PULSE 86; RESP 18; O2SAT 98
[2020-11-08 01:33] LABS: Add Urine Culture? Yes; Add Urine Microscopic? YES; Bacteria Urine 4+ /hpf; Bilirubin Urine Neg (Negative); Blood Urine 3+ (Negative); Glucose Urine UA Norm (Normal); Ketones Urine Negative (Negative); Leukocyte Esterase Urine 1+ (Negative); Nitrate Urine Negative (Negative); Protein Urine 2+ (Negative); RBC Urine TOO NUMEROUS TO CNT /hpf (0-2); Squamous Epithelial Cell Urine 0-4 /hpf (0-5); Sulfosalicylic Acid Urine Positive (Negative); Urine Appearance Cloudy (CLEAR); Urine Color Red (Yellow); Urobilinogen Urine Norm (Negative); pH Urine 8 (5-7)
--- NOTE | 2020-11-08 02:15 | PC.NURSE ---
Called MD; gave report to nurse Silvia. Will transport via ambulance back to [facility].
--- NOTE | 2020-11-08 02:17 | PC.NURSE ---
0035 Performed straight cath for urine. Pt tolerated well.
[2020-11-08 02:44] VITALS: BP 109/55; PULSE 76; RESP 16; O2SAT 98
== END 2020-11-08 02:46 | disposition home or self-care (01) ==
PROVIDERS: Emergency Provider Emergency Medicine; PCP Registered Nurse
DX: N39.0 Urinary tract infection, site not specified (principal); R31.9 Hematuria, unspecified; Z79.01 Long term (current) use of anticoagulants; Z79.82 Long term (current) use of aspirin; Z86.73 Personal history of transient ischemic attack (TIA), and cerebral infarction without residual deficits; I10 Essential (primary) hypertension; Z87.440 Personal history of urinary (tract) infections
CPT/HCPCS: 36415; 74176; 80053; 81001; 85025; 85610; 87077; 87086; 87186; 99283

== ENCOUNTER 2020-12-26 14:21 | Outpatient (CLI) | payer MEDICARE, OTHER, MEDICAID, SELFPAY ==
--- NOTE | 2020-12-26 14:34 | XRR_ITS ---
PROCEDURE INFORMATION: Exam: XR Abdomen Exam date and time: 12/26/2020 2:34 PM Age: 80 years old Clinical indication: Other: Hematura; Patient HX: Microscopic hematuria. Limited HX due to PT condition/cooperation; Additional info: chad Melendez 12/26/20 @ 2:15 pm shanelle to follow TECHNIQUE: Imaging protocol: XR of the abdomen. Views: Frontal supine view of the abdomen. 1 View. COMPARISON: CT abdomen pelvis con [id number] 11/07/2020 11:55 PM FINDINGS: Gastrointestinal tract: Moderate colonic stool burden. No bowel dilation. Organs: 1 cm stone projecting in the region of the right renal pelvises again noted as seen on prior CT. There is also a 4 mm stone projecting within the right kidney, also seen on comparison imaging.. Bones/joints: No evidence of fracture. Three fixation pins noted within the left hip. 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 XR/XR KUB [id number] IMPRESSION: 1. Similar appearance of right-sided nephrolithiasis measuring 1 cm and 4 mm respectively as noted on prior imaging. 2. No acute radiographic abnormalities of the abdomen. 3. Moderate colonic stool burden.
== END 2020-12-26 14:22 | disposition home or self-care (01) ==
PROVIDERS: PCP Internal Medicine; Visit Provider Urology
DX: N20.0 Calculus of kidney (principal); R31.29 Other microscopic hematuria
CPT/HCPCS: 74018

== ENCOUNTER 2021-06-05 08:02 | Outpatient (CLI) | payer MEDICARE, OTHER, MEDICAID, SELFPAY ==
--- NOTE | 2021-06-05 08:00 | XR_ITS ---
WS: [id number] KUB, AP view, 06/05/2021 Clinical Data: RENAL CALCULUS Comparison: KUB, 12/26/2020. Findings: There are several calcifications overlying the right kidney including the largest measuring 1.0 cm. N o left renal calcifications are noted. There is a large amount of fecal material and colon gas which obscures detail over both kidneys. Degenerative change with a levoscoliosis lumbar spine is noted. Th ere are pacemaker wires in the heart and 3 orthopedic screws in the left hip. XR/XR KUB [id number] Impression: 1. No change in right renal calcifications. 2. Large amount of fecal material in the colon.
--- NOTE | 2021-06-05 08:00 | US_ITS ---
WS: [id number] ULTRASOUND RENAL TECHNIQUE: Ultrasound examination of both kidneys. CLINICAL INFORMATION: GROSS HEMATURIA COMPARISON: None. FINDINGS: RIGHT:Right renal pelvic calculus measuring 15 x 7 mm. No obstruction. Right kidney is normal in size and appearance. Echogenicity: Normal. Cortical thickness: 0.9 cm; Normal. Hydronephrosis: None. Perinephric fluid: None. Right kidney measures: 11.5 cm x 6.7 cm x 3.7 cm. LEFT: Left kidney is atrophic Echogenicity: Increased Cortical thickness: 0.6 cm; Normal. Hydronephrosis: None. Perinephric fluid: None. Left kidney measures: 9.0 cm x 4.3 cm x 4.2 cm. Normal visualized aorta. Bladder is decompressed. US/US renal BI* [id number] IMPRESSION: 1. No hydronephrosis in either kidney. 2. Right renal pelvic calculus measuring 15 x 7 mm similar to November 07, 2020 CT . No hydronephrosis. 3. Atrophic and echogenic left kidney. 4. Bladder is decompressed.
[2021-06-05 09:31] LABS: Anion Gap 20.1 (5-19); Blood Urea Nitrogen 10 mg/dL (8-23); Calcium 9.2 mg/dL (8.5-10.5); Carbon Dioxide 23 mmol/L (22-29); Chloride 103 mmol/L (98-107); Glucose 105 mg/dL (65-115); Osmolality Calculated 295 mOsm/kg (285-295); Potassium 3.1 mmol/L (3.5-5.1); Sodium 143 mmol/L (136-145)
== END 2021-06-05 08:03 | disposition home or self-care (01) ==
LOC: RAD 08:05
PROVIDERS: PCP Internal Medicine; Visit Provider Urology
DX: R31.0 Gross hematuria (principal); N20.0 Calculus of kidney; N26.1 Atrophy of kidney (terminal)
CPT/HCPCS: 36415; 74018; 76770; 80048

== ENCOUNTER 2021-09-01 18:12 | Emergency (ER) | payer MEDICARE, MEDICAID, SELFPAY ==
[2021-09-01] VITALS (17 sets, daily range): BP systolic 158–203; BP diastolic 69–131; PULSE 70–96; RESP 11–24; TEMP 36.6; O2SAT 90–96
--- NOTE | 2021-09-01 18:59 | ED_ITS ---
HPI - Neuro Symptoms/Deficit General: Chief Complaint: Neuro Symptoms/Deficit Stated Complaint: STROKE LIKE SYMPTOMS Time Seen by Provider: 09/01/21 18:18 Source: patient and family Mode of arrival: EMS History of Present Illness: Patient was transported to the emergency department at the request of her from [facility]. Patient has been a long-term care facility for approximately 4 years status post a CVA which is left her requiring total care. She has had some dysphagia as well as left upper and left lower extremity weakness which is chronic in nature. provides history that he visits her on a daily basis and he is noted over the past 2 or more days that she seems to be fluctuating in her c ommunication ability and he thinks that she is not her usual self. He was told that she might of had a fever by [facility] staff today but he cannot quantify that fever for me. He has a history of hypertension in addition to her stroke and has had a prior hysterectomy as well as an appendectomy. When questioned she denies any pain at this time. According to the she is suffered short-term memory deprivation due to her stroke but does have long-term memory. Timing confirmed by: spouse Associated symptoms: Deny chest pain, headache(s), nausea or vomiting Review of Systems Const: Reports: fever(s); Denies: body aches or change in appetite Eyes: Denies: change in vision ENMT: Denies: throat pain or odynophagia Card: Denies: chest pain or palpitations Resp: Denies: dyspnea, productive cough, non-productive cough or wheezing GI: Denies: abdominal pain, nausea or vomiting : Denies: flank pain Musc: Denies: back pain, extremity pain or extremity swelling Skin/Breast: Denies: rash Neuro: Reports: weakness in extremities (Chronic left upper lower extremity weakness), dizziness and Slurred speech present; Denies: headache(s), sensory changes or seizure-like activity [place]/Lymph: Denies: easy bruising or easy bleeding [facility] ED PFSH: Medical History Anxiety Constipation Diverticulosis Dysphagia GERD (gastroesophageal reflux disease) Gross hematuria H/O: CVA (cerebrovascular accident) Hypercholesterolemia Hypertension Other microscopic hematuria Recurrent UTI Urolithiasis Surgical History H/O colonoscopy yrs ago H/O esophagogastroduodenoscopy never had one H/O mitral valve replacement History of appendectomy History of hysterectomy History of renal stent History of tonsillectomy Family History Brother Cancer Hyperlipidemia Father Heart disease Stroke Sister Bleeding disorder hemorrhaged Other CAD (coronary artery disease) Hypertension Denies family history of Anesthesia complication Social History Smoking and tobacco status: never smoked Alcohol intake: never Lives independently: No Household members: spouse Housing: House Marital status: Current occupational status: disabled Current gender identity: Female NIH stroke score NIHSS: Level Of Consciousness - 1a: 0 Level Of Consciousness Questions - 1b: Both Correct Level Of Consciousness Commands - 1c: Both Correct Best Gaze - 2: Normal Visual [place] - 3: No Visual Loss Facial Palsy - 4: Complete Paralysis Motor Arm Right - 5: No Drift Motor Arm Left - 5: No Movement Motor Leg Right - 6: Drift Motor Leg Left - 6: Effort Against [place] Limb Ataxia - 7: Absent Sensory - 8: Mild To Moderate Loss Best Language - 9: No Aphasia Dysarthia - 10: Severe Dysarthia Extinction And Inattention - 11: 0 Score: Total Score: 13 Physical Exam 2 Narrative: EXAM NARRATIVE: The patient's alert and spontaneous eye opening. She will communicate but has dysarthria notably. Const: COMMON NORMALS: no acute distress GENERAL APPEARANCE: cooperative ORIENTATION/CONSCIOUSNESS: Yes awake and Yes oriented to person HENMT: COMMON NORMALS: normocephalic, atraumatic and Normal external nose present HEAD & SCALP: normocephalic and atraumatic FACE & SINUS: Flattened naso-labial fold present Left NOSE: Normal external nose present Eye: COMMON NORMALS: Equal, round and reactive pupils present, EOMs intact bilaterally and no scleral icterus PUPIL: Yes Equal, round and reactive pupils present Neck/C-Spine: COMMON NORMALS: full ROM, supple, no meningeal signs and no JVD Lymph: LYMPHATIC: no lymphadenopathy noted Chest: COMMONS NORMALS: normal inspection of the chest Resp: COMMON NORMALS: normal respiratory effort, No retractions, No use of accessory muscles and clear to auscultation bilaterally AUSCULTATION: clear to auscultation bilaterally Cardio: COMMON NORMALS: no JVD, regular rate, No murmurs present (Cardio) and Peripheral pulses 2+ throughout RATE: regular rate PERIPHERAL PULSES: Peripheral pulses 2+ throughout GI: COMMON NORMALS: Normal to inspection, nondistended, normoactive bowel sounds present, no masses and no bruits PALPATION: Yes Tenderness to palpation present (GI) Details: LLQ : COMMON NORMALS: Yes no CVA tenderness BLADDER/KIDNEY EXAM: Yes no CVA tenderness Back/Pelvis: COMMON NORMALS: no CVA tenderness and no thoracic nor lumbar tenderness Extremity: NARRATIVE EXTREMITY EXAM: Orthotic to prevent flexion contractures. There is no movement spontaneously of the left upper extremity. Both the right upper extremity left and right lower extremity have normal muscle bulk but do have particular notable weakness in the left lower extremity. She does have less weakness in right lower extremity and no apparent weakness to movement to the right upper extremity. No joint effusions or erythema or deformity. Neuro: SENSORIUM/ORIENTATION: Yes oriented to person MENINGEAL SIGNS: Yes no meningeal signs SPEECH: Other neuro speech findings (Dysarthric speech) GAIT: Yes Unable to assess gait MOTOR EXAM: Abnormal motor strength present (Left upper left lower and right lower extremities weak) Psych: COMMON NORMALS: mental status grossly normal Skin: COMMON NORMALS: no rashes or lesions noted, no jaundice, no petechiae and no mottling GENERAL SKIN EXAM: no rashes or lesions noted Course Reevaluation(s): Reevaluation #1: Patient remained stable but is more hypertensive unchanged by usual medications. We will going additional dose of labetalol. She has had what appears to be a cerebellar infarct. Does not have any nystagmus and is difficult to get a adequate cerebellar examination from her due to her motor weakness. Concern is potential of progressive edema although she is now 48 hours plus out from what seems to be the time of her event. I discussed it in detail with her family to include her daughter in law and her son Boris Kline. I explained to them that she is currently stable but has had what appears to be new cerebellar infarct which is not hemorrhagic in nature. She is outside the window for any acute intervention such as thrombolytic therapy, clot retrieval etc. I will consult telestroke for any additional recommendations at this time. Time: 21:19 Consultations: Consultation #1: Spoke with virtual radiologist regarding her CT scan. She has no evidence of acute hemorrhage but does have what appears to be some new infarcted tissue particularly in the left and lateral cerebellar region. See full report. Time: 20:35 Consultation #2: Spoke with attending stroke neurologist Dr. Flores at [facility]. We reviewed current findings. Time: 22:00 Vital Signs: Vital signs: Vital Signs Pulse Rate 80 09/01/21 23:00 Respiratory Rate 19 H 09/01/21 23:00 Blood Pressure 189/79 09/01/21 23:00 Pulse Oximetry 92 09/01/21 23:00 MDM - Neuro Symptoms/Deficit Medical Decision Making This patient presented with progressive neurologic symptoms which were noted by family over the past 2-3 days. Subsequent work-up revealed that she had evidence of a acute versus subacute cerebellar stroke. Asked consultation with neurology as well as family ensued and eventually it was decided that in order to preserve her current quality of life that she would be best [facility] for continued observation and intervention should she develop progressive edema from her posterior fossa stroke. While in the emergency department she had hypertension that was treated with labetalol which improved. The patient has been accepted by Dr. Szymanski neurologist at [facility]. I spoke with family who are in concert and were in complete agreement with the transfer. Lab Data I reviewed the patient's lab results. : 09/01/21 17:35 09/01/21 19:45 Radiology Impressions Chest X-Ray 09/01/21 19:13 IMPRESSION: 1. No acute cardiopulmonary process. 2. Incidental/nonacute findings are listed in the report. Head CT 09/01/21 19:13 IMPRESSION: 1. Multiple areas of decreased density loss of bond-white matter differentiation in the left cerebellar hemisphere suspicious for acute infarcts. This involves at least 75% of the left cerebellar hemisphere. There is associated mild cerebral edema with mild mass effect on the posterior left ambient cistern. No hydrocephalus. No midline shift. 2. Stable mild atrophy of the brain parenchyma. 3. Stable mild chronic white matter microangiopathic change. 4. Stable old, large right MCA territory infarct. 5. Small, old infarct in the right cerebellar hemisphere. 6. Incidental/nonacute findings are listed in the report. COMMENTS: THIS REPORT CONTAINS FINDINGS THAT MAY BE CRITICAL TO PATIENT CARE. The findings were verbally communicated via telephone conference with MIGUEL ANGEL Gaines at 8:35 PM CDT on 09/01/2021. The findings were acknowledged and understood. Laboratory Results WBC 14.7 10^3/uL (4.0-10.0) H 09/01/21 17:35 RBC 4.65 10^6/uL (4.1-5.3) 09/01/21 17:35 Hgb 14.9 g/dL (11.5-15.3) 09/01/21 17:35 Hct 44.3 % (37.0-47.0) 09/01/21 17:35 MCV 95.3 fl (81-99) 09/01/21 17:35 MCH 32.0 pg (28.0-34.0) 09/01/21 17: MCHC 33.6 g/dL (30.0-36.0) 09/01/21 17:35 RDW 13.7 % (12.1-15.1) 09/01/21 17:35 Plt Count 193 10^3/cmm (130-400) 09/01/21 17:35 MPV 10.9 fL (7.4-10.4) H 09/01/21 17:35 Neut % (Auto) 59.3 % 09/01/21 17:35 Lymph % (Auto) 29.0 % 09/01/21 17:35 [place] % (Auto) 9.0 % 09/01/21 17:35 Eos % (Auto) 1.8 % 09/01/21 17:35 Baso % (Auto) 0.6 % 09/01/21 17:35 Neut # (Auto) 8.68 10^3/uL (1.8-7.7) H 09/01/21 17:35 Lymph # (Auto) 4.3 10^3/uL (0.8-4.8) 09/01/21 17:35 [place] # (Auto) 1.3 10^3/uL (0.2-0.9) H 09/01/21 17:35 Eos # (Auto) 0.3 10^3/uL (0.0-0.8) 09/01/21 17:35 Baso # (Auto) 0.1 10^3/uL (0.0-0.1) 09/01/21 17:35 Nucleated RBC % (auto) 0 % 09/01/21 17:35 Nucleated RBCs # 0.0 /100WBC 09/01/21 17:35 Sodium 136 mmol/L (136-145) 09/01/21 19:45 Potassium 3.6 mmol/L (3.5-5.1) 09/01/21 19:45 Chloride 100 mmol/L (98-107) 09/01/21 19:45 Carbon Dioxide 24 mmol/L (22-29) 09/01/21 19:45 Anion Gap 15.6 (5-19) 09/01/21 19:45 BUN 18 mg/dL (8-23) 09/01/21 19:45 Creatinine 0.6 mg/dL (0.5-0.9) 09/01/21 19:45 GFR Calculation Not Reportable 09/01/21 19:45 Glucose 103 mg/dL (65-115) 09/01/21 19:45 Calculated Osmolality 284 mOsm/kg (285-295) L 09/01/21 19:45 Calcium 9.2 mg/dL (8.5-10.5) 09/01/21 19:45 Total Bilirubin 1.3 mg/dL (0.15-1.2) H 09/01/21 19:45 AST 18 U/L (0-32) 09/01/21 19:45 ALT 6 U/L (0-33) 09/01/21 19:45 Alkaline Phosphatase 110 IU/L (35-105) H 09/01/21 19:45 Troponin T Gen 5 ng/L 54 ng/L (0-10) H 09/01/21 19:45 Total Protein 7.8 g/dL (6.6-8.7) 09/01/21 19:45 Albumin 3.6 g/dL (3.5-5.2) 09/01/21 19:45 Globulin 4.2 g/dL (1.3-4.6) 09/01/21 19:45 EKG Data EKG 1: EKG interpretation time: 20:16 Interpretation: Review of the EKG reveals a ventricular rate of 74 bpm. Appears to be in sinus rhythm. Her NJ interval and QRS duration are normal. Her QTC is normal. Her axis is normal. She has nonspecific ST-T wave changes noted in limb lead III as well as precordial leads 5 and 6. No prior EKGs are available for comparison. Discharge Plan Discharge Patient Disposition: Xfer Short-Term Hosp Clinical Impression: Cerebellar infarct, Hypertension Condition: Fair Prescriptions: No Action zinc oxide 40 % ointment 1 applic TOPICAL 6XD PRN (Reason: UNKNOWN) 0RF acetaminophen 325 mg capsule 325 mg PO DAILY PRN (Reason: Pain) 0RF polyethylene glycol 3350 [Miralax] 17 gram/dose powder 17 gm PO DAILY@0800 0RF sennosides [senna] 8.6 mg tablet 17.2 mg PO BID@799,1999 PRN (Reason: Constipation) 0RF dicyclomine 10 mg capsule 10 mg PO QID PRN (Reason: UNKNOWN) 0RF docusate sodium 100 mg capsule 100 mg PO BID@799,1999 0RF albuterol sulfate [ProAir HFA] 90 mcg/actuation HFA aerosol inhaler 2 puff INHALATION Q6H PRN (Reason: shortness of breath or wheezing) Qty: 6.7 0RF budesonide [Rhinocort Allergy] 32 mcg/actuation spray,non-aerosol 1 spray INTRANASAL DAILY PRN (Reason: nose bleed) Qty: 8.43 0RF Rx Instructions: administer PRN for nose bleed cetirizine [All Day Allergy (cetirizine)] 10 mg tablet 10 mg PO DAILY PRN0RF hydrocortisone 2.5 % cream with perineal applicator 1 applic NJ DAILY PRN0RF magnesium hydroxide [Milk of Magnesia] 400 mg/5 mL suspension 30 ml PO DAILY PRN0RF calcium carbonate [Antacid (calcium carbonate)] 200 mg calcium (500 mg) tablet,chewable 200 mg PO BID 0RF hydroxyzine HCl 25 mg tablet 25 mg PO TID PRN0RF diltiazem HCl 240 mg capsule,extended release 24hr 240 mg PO DAILY 0RF risperidone 0.25 mg tablet 0.25 mg PO BID 0RF Saccharomyces boulardii [Florastor] 250 mg capsule 250 mg PO BID 0RF docusate sodium 100 mg/5 mL enema 100 mg NJ DAILY PRN0RF bisacodyl 10 mg suppository 10 mg NJ DAILY PRN0RF buspirone 7.5 mg tablet 7.5 mg PO BID 0RF hydrocodone-acetaminophen 5-325 mg Tablet 1 tab PO Q6H PRN (Reason: Pain) 0RF Vitamin B-12 1,000 mcg Tablet 1,000 mcg PO DAILY@0800 0RF Vitamin D3 25 mcg (1,000 unit) Tablet 25 mcg PO DAILY@0800 0RF TwoCal HN 0.08-2 gram-kcal/mL Liquid 1 ea PO TID@0800,1200,1999 0RF multivitamin 1 tab PO DAILY@0800 0RF atorvastatin 40 mg tablet 40 mg PO DAILY@1999 0RF Xanax 0.25 mg tablet 0.25 mg PO BID@0630,2230 0RF pantoprazole 40 mg tablet,delayed release (DR/EC) 40 mg PO BID@08,1999 0RF metoprolol tartrate 50 mg tablet 75 mg PO BID@0800,1999 0RF Referrals: Robin Marroquin DO [Primary Care Provider] - Coding Level of Care Code ED Grades 1 Through 6 Teacher for Chg Fwd Exam Comprehensive
--- NOTE | 2021-09-01 19:03 | PC.NURSE ---
Assumed nursing pt care from Dash TERRELL
--- NOTE | 2021-09-01 19:13 | ECG_ITS ---
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 Measurements Intervals [place] Rate: 74 P: 65 RI: 187 QRS: 35 QRSD: 107 T: 31 QT: 409 QTc: 455 Interpretive Statements SINUS RHYTHM NONSPECIFIC ST & T-WAVE ABNORMALITY Compared to ECG 09/06/2018 06:24:37 No significant changes Electronically Signed On 09-02-2021 19:34:15 CDT by Lupillo Avelar M.D. [email or web address].[employer]/store/OM/[id number]
--- NOTE | 2021-09-01 19:13 | CTR_ITS ---
PROCEDURE INFORMATION: Exam: CT Head Without Contrast Exam date and time: 09/01/2021 7:59 PM Age: 80 years old Clinical indication: Speech disturbance; Patient HX: Worsening dysphasia x 2 days per ; Additional info: New deficits (prior right cva) TECHNIQUE: Imaging protocol: Computed tomography of the head without contrast. Sagittal and coronal reformatted images were created and reviewed. Radiation optimization: All CT scans at this facility use at least one of these dose optimization techniques: automated exposure control; mA and/or kV adjustment per patient size (includes targeted exams where dose is matched to clinical indication); or iterative reconstruction. COMPARISON: CT head wo con* [id number] 11/25/2018 5:04 PM RADIATION DOSE METRICS: Total DLP (mGy-cm): 1499.38 FINDINGS: Brain: No acute intracranial hemorrhage. Multiple areas of decreased density loss of bond-white matter differentiation in the left cerebellar hemisphere suspicious for acute infarcts. This involves at least 75% of the left cerebellar hemisphere. There is associated mild cerebral edema. There is mild mass effect on the posterior left ambient cistern. No intra-axial or extra-axial masses. No midline shift. No extra-axial fluid collections. Stable mild atrophy of the brain parenchyma. Stable mildly decreased attenuation in the deep white matter, consistent with mild chronic microangiopathic change. Stable large area of encephalomalacia in the right frontal, temporal, and parietal lobes consistent with an old right MCA territory infarct and small area of encephalomalacia in the right cerebellar hemisphere consistent with a small infarct. No evidence for Chiari 1 malformation. Cerebral ventricles: No hydrocephalus. Paranasal sinuses: Mild mucoperiosteal thickening in the visualized right and left frontal and right sphenoid sinuses. Other visualized paranasal sinuses are clear. Mastoid air cells: Mastoid air cells are clear bilaterally. Orbital cavities: No acute abnormality in the visualized orbits. Vasculature: Atherosclerotic changes in the visualized arteries. Bones/joints: No acute fracture. Soft tissues: The extracranial soft tissues are unremarkable. CT/CT head wo con* [id number] IMPRESSION: 1. Multiple areas of decreased density loss of bond-white matter differentiation in the left cerebellar hemisphere suspicious for acute infarcts. This involves at least 75% of the left cerebellar hemisphere. There is associated mild cerebral edema with mild mass effect on the posterior left ambient cistern. No hydrocephalus. No midline shift. 2. Stable mild atrophy of the brain parenchyma. 3. Stable mild chronic white matter microangiopathic change. 4. Stable old, large right MCA territory infarct. 5. Small, old infarct in the right cerebellar hemisphere. 6. Incidental/nonacute findings are listed in the report. COMMENTS: THIS REPORT CONTAINS FINDINGS THAT MAY BE CRITICAL TO PATIENT CARE. The findings were verbally communicated via telephone conference with OLEG Gaines at 8:35 PM CDT on 09/01/2021. The findings were acknowledged and understood.
--- NOTE | 2021-09-01 19:13 | XRR_ITS ---
PROCEDURE INFORMATION: Exam: XR Chest Exam date and time: 09/01/2021 7:26 PM Age: 80 years old Clinical indication: Fever; Prior surgery; Surgery type: Valve, pacemaker TECHNIQUE: Imaging protocol: XR of the chest. Views: 1 view. COMPARISON: CR XR chest 1V portable [id number] 08/22/2020 1:41 PM FINDINGS: Tubes, catheters and devices: There is a single lead cardiac pacer via left subclavian approach. Findings are stable. Lungs: Lungs are clear bilaterally. Pleural spaces: No pleural effusion. No pneumothorax. Heart/Mediastinum: Stable mild enlargement of the cardiac silhouette. Mediastinal contours are unremarkable. Stable positioning of a prosthetic heart valve. Vasculature: Stable vascular calcifications in the aorta. Bones/joints: Poststernotomy changes in the chest. Bones are diffusely osteopenic. Degenerative changes in the spine and shoulders. Osseous findings are stable. XR/XR chest 1V [id number] IMPRESSION: 1. No acute cardiopulmonary process. 2. Incidental/nonacute findings are listed in the report.
[2021-09-01 19:22] LABS: Basophils # 0.1 10^3/uL (0.0-0.1); Basophils % 0.6 %; Eosinophils # 0.3 10^3/uL (0.0-0.8); Eosinophils % 1.8 %; Hematocrit 44.3 % (37.0-47.0); Hemoglobin 14.9 g/dL (11.5-15.3); Lymphocytes # 4.3 10^3/uL (0.8-4.8); Mean Corpuscular HGB Conc 33.6 g/dL (30.0-36.0); Mean Corpuscular Volume 95.3 fl (81-99); Mean Platelet Volume 10.9 fL (7.4-10.4); Monocytes # 1.3 10^3/uL (0.2-0.9); Neutrophils # 8.68 10^3/uL (1.8-7.7); Neutrophils % 59.3 %; Nucleated Red Blood Cells % 0 %; Platelet Count 193 10^3/cmm (130-400); Red Blood Count 4.65 10^6/uL (4.1-5.3); Red Cell Distribution Width 13.7 % (12.1-15.1); White Blood Count 14.7 10^3/uL (4.0-10.0)
[2021-09-01] MEDS: metoprolol tartrate 1 mg/1 mL SDV 5 mL 5 MG IV (19:22)
[2021-09-01 20:46] LABS: Alanine Aminotransferase 6 U/L (0-33); Albumin Level 3.6 g/dL (3.5-5.2); Alkaline Phosphatase 110 IU/L (35-105); Anion Gap 15.6 (5-19); Aspartate Amino Transferase 18 U/L (0-32); Blood Urea Nitrogen 18 mg/dL (8-23); Calcium 9.2 mg/dL (8.5-10.5); Carbon Dioxide 24 mmol/L (22-29); Chloride 100 mmol/L (98-107); Globulin 4.2 g/dL (1.3-4.6); Glucose 103 mg/dL (65-115); Osmolality Calculated 284 mOsm/kg (285-295); Potassium 3.6 mmol/L (3.5-5.1); Sodium 136 mmol/L (136-145); Total Bilirubin 1.3 mg/dL (0.15-1.2); Total Protein 7.8 g/dL (6.6-8.7)
[2021-09-01 20:49] LABS: Troponin T (5th) Once 54 ng/L (0-10)
[2021-09-01] MEDS: labetalol 5 mg/mL SDV 20mL 20 MG IVP (21:26)
[2021-09-02] VITALS (9 sets, daily range): BP systolic 125–196; BP diastolic 70–99; PULSE 77–94; RESP 14–29; O2SAT 92–96
[2021-09-02 00:42] LABS: SARS Covid-2 Antigen Negative (Negative)
--- NOTE | 2021-09-02 03:38 | PC.NURSE ---
0245 Pt cleaned up, depend changed and repositioned in bed to comfort.
[2021-09-02 04:01] LABS: Adenovirus Not Detected (NOT DETECT); Chlamydia Pneumoniae Not Detected (NOT DETECT); Coronavirus 229E,HKU1,NL63,OC4 Not Detected (NOT DETECT); Human Metapneumovirus Not Detected (NOT DETECT); Human Rhinovirus/Enterovirus Not Detected (NOT DETECT); Influenza A Not Detected (NOT DETECT); Influenza A H1 Not Detected (NOT DETECT); Influenza A H1-2009 Not Detected (NOT DETECT); Influenza A H3 Not Detected (NOT DETECT); Influenza B Not Detected (NOT DETECT); Mycoplasma Pneumoniae Not Detected (NOT DETECT); Parainfluenza Virus Type 1 Not Detected (NOT DETECT); Parainfluenza Virus Type 2 Not Detected (NOT DETECT); Parainfluenza Virus Type 3 Not Detected (NOT DETECT); Parainfluenza Virus Type 4 Not Detected (NOT DETECT); Respiratory Syncytial Virus A Not Detected (NOT DETECT); Respiratory Syncytial Virus B Not Detected (NOT DETECT); SARS-COV-2 Not Detected (NOT DETECT)
== END 2021-09-02 03:30 | disposition short-term general hospital (02) ==
PROVIDERS: Emergency Medicine; Emergency Provider Emergency Medicine; PCP Internal Medicine
DX: I63.9 Cerebral infarction, unspecified (principal); I10 Essential (primary) hypertension; R29.713 NIHSS score 13; I69.354 Hemiplegia and hemiparesis following cerebral infarction affecting left non-dominant side; I69.391 Dysphagia following cerebral infarction; R13.10 Dysphagia, unspecified; Z82.49 Family history of ischemic heart disease and other diseases of the circulatory system; Z20.822 Contact with and (suspected) exposure to COVID-19
CPT/HCPCS: 70450; 71045; 80053; 84484; 85025; 87426; 87635; 93005; 96374; 96375; 99285; J3490

== ENCOUNTER 2021-10-08 14:18 | Inpatient (IN) | payer MEDICARE, MEDICAID, SELFPAY ==
[2021-10-08] VITALS (26 sets, daily range): BP systolic 104–133; BP diastolic 45–70; PULSE 61–108; RESP 7–22; TEMP 36.2–36.7; O2SAT 87–99; BMI 23.0; BMI 21.4
--- NOTE | 2021-10-08 14:25 | XRR_ITS ---
PROCEDURE INFORMATION: Exam: XR Chest Exam date and time: 10/08/2021 2:42 PM Age: 80 years old Clinical indication: Other: Afib; Prior surgery; Surgery date: 6+ months; Additional info: Chest pain TECHNIQUE: Imaging protocol: XR of the chest. Views: 1 view. COMPARISON: CR (CHEST, ) 09/01/2021 7:26 PM FINDINGS: Tubes, catheters and devices: Left chest wall single chamber cardiac device in place. Next item cardiac valve prosthesis is again noted. Next item aortic arch calcification. Lungs: The lung bases are suboptimally assessed due to technique however the upper lungs are clear of focal consolidation. Pleural spaces: Unremarkable. No pleural effusion. No pneumothorax. Heart/Mediastinum: Cardiac silhouette appears somewhat magnified by technique but is probably normal in size. No obvious vascular congestion. Bones/joints: No acute osseous findings. Osteopenia. Sternotomy wires. Other findings: Single view was submitted. XR/XR chest 1V portable [id number] IMPRESSION: No acute findings.
--- NOTE | 2021-10-08 14:26 | ECG_ITS ---
[facility] Test Date: 2021-10-08 Pat Name: Freda Kline Department: Room: Gender: Female Reroller Hand: : 1940 Requested By: Saravanan Bennett Order Number: [id number] Yair MD: Lupillo Avelar M.D. Measurements Intervals [place] Rate: 139 P: CO: QRS: 44 QRSD: 103 T: -48 QT: 273 QTc: 416 Interpretive Statements SUPRAVENTRICULAR TACHYCARDIA MARKED ST DEPRESSION Compared to ECG 09/01/2021 20:08:46 ST (T wave) deviation now present Sinus rhythm no longer present T-wave abnormality no longer present Electronically Signed On 10-08-2021 19:41:20 CDT by Lupillo Avelar M.D. [id number]
--- NOTE | 2021-10-08 14:29 | ED_ITS ---
HPI - Chest Pain General: Chief Complaint: Arrhythmia/Palpitations Stated Complaint: AFIB W/RVR - SICK SINUS SYNDROME Time Seen by Provider: 10/08/21 14:25 History of Present Illness: Patient is brought in from the group home with palpitations and mental status change. Per EMS the patient was not responding and CPR was administered at the group home prior to their arrival. Upon arrival the patient had a pulse and was able to communicate with him. She is at the group home after having a stroke and is currently per EMS at her baseline. She has left-sided weakness which is secondary to her previous stroke. She does talk but only a small amount. Patient has a history of A. fib and upon arrival here she is tachycardic with an irregularly irregular rhythm. Review of Systems General: Reports: Other (Review of systems is limited secondary to mental status) [facility] ED PFSH: Medical History Anxiety Constipation Diverticulosis Dysphagia GERD (gastroesophageal reflux disease) Gross hematuria H/O: CVA (cerebrovascular accident) Hypercholesterolemia Hypertension Other microscopic hematuria Recurrent UTI Urolithiasis Surgical History H/O colonoscopy yrs ago H/O esophagogastroduodenoscopy never had one H/O mitral valve replacement History of appendectomy History of hysterectomy History of renal stent History of tonsillectomy Family History Brother Cancer Hyperlipidemia Father Heart disease Stroke Sister Bleeding disorder hemorrhaged Other CAD (coronary artery disease) Hypertension Denies family history of Anesthesia complication Social History Smoking and tobacco status: never smoked Alcohol intake: never Lives independently: No Household members: spouse Housing: House Marital status: Current occupational status: disabled Current gender identity: Female Physical Exam Const: OTHER: Patient is mostly nonverbal, ill-appearing HENMT: COMMON NORMALS: normocephalic and atraumatic HEAD & SCALP: normocephalic and atraumatic Eye: COMMON NORMALS: Equal, round and reactive pupils present and EOMs intact bilaterally PUPIL: Yes Equal, round and reactive pupils present Neck/C-Spine: COMMON NORMALS: full ROM and supple Resp: COMMON NORMALS: normal respiratory effort, No retractions and No use of accessory muscles Cardio: OTHER: Patient is tachycardic with a regular rhythm GI: COMMON NORMALS: Normal to inspection, nondistended, normoactive bowel sounds present, Soft to palpation and non-tender PALPATION: Yes Soft to palpation Back/Pelvis: COMMON NORMALS: thoracic and lumbar spine normal to inspection and no thoracic nor lumbar tenderness Extremity: OTHER: Muscle atrophy throughout Neuro: OTHER: Left-sided hemiparesis Skin: COMMON NORMALS: no rashes or lesions noted and no wounds GENERAL SKIN EXAM: no rashes or lesions noted Course Vital Signs: Vital signs: Vital Signs Temperature 98.0 F 10/08/21 14:23 Pulse Rate 69 10/08/21 16:03 Respiratory Rate 15 10/08/21 16:03 Blood Pressure 115/56 10/08/21 16:03 Pulse Oximetry 95 10/08/21 16:03 MDM - Chest Pain Medical Decision Making Patient is brought in from the group home with palpitations and mental status change. Per EMS the patient was not responding and CPR was administered at the group home prior to their arrival. Upon arrival the patient had a pulse and was able to communicate with him. She is at the group home after having a stroke and is currently per EMS at her baseline. She has left-sided weakness which is secondary to her previous stroke. She does talk but only a small am ount. Patient has a history of A. fib and upon arrival here she is tachycardic with an irregularly irregular rhythm. We will check lab, give IV fluids, EKG, start diltiazem bolus and drip, and reassess. On reassessment the patient is doing better. She converted to normal sinus rhythm after the IV bolus of diltiazem and is in remained in normal sinus throughout. We will start her on antibiotics for urinary tract infection. We will attempt to interrogate her pacemaker. Her and know what model it was. I discussed the case with the hospitalist and we will admit the patient to the ICU for further work-up and treatment. Lab Data : 10/08/21 15:20 10/08/21 15:20 Radiology Impressions Chest X-Ray 10/08/21 14:25 IMPRESSION: No acute findings. Laboratory Results WBC 16.2 10^3/uL (4.0-10.0) H 10/08/21 15:20 RBC 4.08 10^6/uL (4.1-5.3) L 10/08/21 15:20 Hgb 13.1 g/dL (11.5-15.3) 10/08/21 15:20 Hct 39.0 % (37.0-47.0) 10/08/21 15:20 MCV 95.6 fl (81-99) 10/08/21 15:20 MCH 32.1 pg (28.0-34.0) 10/08/21 15:20 MCHC 33.6 g/dL (30.0-36.0) 10/08/21 15:20 RDW 14.7 % (12.1-15.1) 10/08/21 15:20 Plt Count 334 10^3/cmm (130-400) 10/08/21 15:20 MPV 10.3 fL (7.4-10.4) 10/08/21 15:20 Neut % (Auto) 73.1 % 10/08/21 15:20 Lymph % (Auto) 18.2 % 10/08/21 15:20 [place] % (Auto) 6.8 % 10/08/21 15:20 Eos % (Auto) 0.8 % 10/08/21 15:20 Baso % (Auto) 0.4 % 10/08/21 15:20 Neut # (Auto) 11.87 10^3/uL (1.8-7.7) H 10/08/21 15:20 Lymph # (Auto) 3.0 10^3/uL (0.8-4.8) 10/08/21 15:20 [place] # (Auto) 1.1 10^3/uL (0.2-0.9) H 10/08/21 15:20 Eos # (Auto) 0.1 10^3/uL (0.0-0.8) 10/08/21 15:20 Baso # (Auto) 0.1 10^3/uL (0.0-0.1) 10/08/21 15:20 Nucleated RBC % (auto) 0 % 10/08/21 15:20 Nucleated RBCs # 0.0 /100WBC 10/08/21 15:20 Sodium 142 mmol/L (136-145) 10/08/21 15:20 Potassium 2.9 mmol/L (3.5-5.1) L 10/08/21 15:20 Chloride 100 mmol/L (98-107) 10/08/21 15:20 Carbon Dioxide 25 mmol/L (22-29) 10/08/21 15:20 Anion Gap 19.9 (5-19) H 10/08/21 15:20 BUN 17 mg/dL (8-23) 10/08/21 15:20 Creatinine 0.9 mg/dL (0.5-0.9) 10/08/21 15:20 GFR Calculation Not Reportable 10/08/21 15:20 Glucose 129 mg/dL (65-115) H 10/08/21 15:20 Calculated Osmolality 297 mOsm/kg (285-295) H 10/08/21 15:20 Calcium 8.4 mg/dL (8.5-10.5) L 10/08/21 15:20 Magnesium 1.8 mg/dL (1.7-2.3) 10/08/21 15:20 Total Bilirubin 0.4 mg/dL (0.15-1.2) 10/08/21 15:20 AST 25 U/L (0-32) 10/08/21 15:20 ALT 16 U/L (0-33) 10/08/21 15:20 Alkaline Phosphatase 107 IU/L (35-105) H 10/08/21 15:20 Troponin T Baseline 54 ng/L (0-10) H 10/08/21 15:20 Total Protein 6.1 g/dL (6.6-8.7) L 10/08/21 15:20 Albumin 3.1 g/dL (3.5-5.2) L 10/08/21 15:20 Globulin 3.0 g/dL (1.3-4.6) 10/08/21 15:20 Lipase 20 U/L (13-60) 10/08/21 15:20 Urine Color Yellow (Yellow) 10/08/21 15:45 Urine Appearance Cloudy (CLEAR) 10/08/21 15:45 Urine pH 5 (5-7) 10/08/21 15:45 Ur Specific [place] 1.015 (1.005-1.030) 10/08/21 15:45 Urine Protein Trace (Negative) 10/08/21 15:45 Urine Glucose (UA) Norm (Normal) 10/08/21 15:45 Urine Ketones Negative (Negative) 10/08/21 15:45 Urine Blood 3+ (Negative) H 10/08/21 15:45 Urine Nitrate Negative (Negative) 10/08/21 15:45 Urine Bilirubin Neg (Negative) 10/08/21 15:45 Urine Urobilinogen Norm mg/dL (Negative) 10/08/21 15:45 Ur Leukocyte Esterase 2+ (Negative) H 10/08/21 15:45 Urine RBC Too numerous to cnt /hpf (0-2) H 10/08/21 15:45 Urine WBC >100 /hpf (0-5) H 10/08/21 15:45 Ur Squamous Epith Cells 0-4 /hpf (0-5) H 10/08/21 15:45 Amorphous Sediment Not Reportable 10/08/21 15:45 Urine Bacteria 3+ /hpf (NONE) H 10/08/21 15:45 Coarse Granular Casts 0-4 /lpf H 10/08/21 15:45 Other Casts Wbc cast /lpf 10/08/21 15:45 Discharge Plan Discharge Patient Disposition: Admitted As Inpatient Clinical Impression: Acute UTI, Dysrhythmia Condition: Stable Coding Level of Care Code ED Dowel Setting Machine Operator for Daniel Fwfei Exam Detailed
[2021-10-08] MEDS: calcium gluconate 0.9% NaCL 1 GM/50 ML PREMIX IV (14:52)
[2021-10-08] MEDS: dilTIAZem 5 mg/mL SDV 5 mL 10 MG IVP (14:52)
[2021-10-08] MEDS: sodium chloride 0.9% 1,000 ML 999 ML IV ×2 (14:52→17:15)
[2021-10-08 15:44] LABS: Basophils # 0.1 10^3/uL (0.0-0.1); Basophils % 0.4 %; Eosinophils # 0.1 10^3/uL (0.0-0.8); Eosinophils % 0.8 %; Hemoglobin 13.1 g/dL (11.5-15.3); Lymphocytes % 18.2 %; Mean Corpuscular HGB Conc 33.6 g/dL (30.0-36.0); Mean Corpuscular Hemoglobin 32.1 pg (28.0-34.0); Mean Corpuscular Volume 95.6 fl (81-99); Mean Platelet Volume 10.3 fL (7.4-10.4); Monocytes # 1.1 10^3/uL (0.2-0.9); Monocytes % 6.8 %; Neutrophils # 11.87 10^3/uL (1.8-7.7); Neutrophils % 73.1 %; Nucleated Red Blood Cells % 0 %; Platelet Count 334 10^3/cmm (130-400); Red Blood Count 4.08 10^6/uL (4.1-5.3); Red Cell Distribution Width 14.7 % (12.1-15.1); White Blood Count 16.2 10^3/uL (4.0-10.0)
[2021-10-08 16:03] LABS: Troponin(5th) Baseline 54 ng/L (0-10)
[2021-10-08 16:06] LABS: Alanine Aminotransferase 16 U/L (0-33); Albumin Level 3.1 g/dL (3.5-5.2); Alkaline Phosphatase 107 IU/L (35-105); Aspartate Amino Transferase 25 U/L (0-32); Blood Urea Nitrogen 17 mg/dL (8-23); Calcium 8.4 mg/dL (8.5-10.5); Carbon Dioxide 25 mmol/L (22-29); Chloride 100 mmol/L (98-107); Glucose 129 mg/dL (65-115); Lipase 20 U/L (13-60); Magnesium 1.8 mg/dL (1.7-2.3); Osmolality Calculated 297 mOsm/kg (285-295); Sodium 142 mmol/L (136-145); Total Bilirubin 0.4 mg/dL (0.15-1.2); Total Protein 6.1 g/dL (6.6-8.7)
[2021-10-08 16:10] LABS: Protein Urine Trace (Negative); Specific Gravity, Urine 1.015 (1.005-1.030); Urine Appearance Cloudy (CLEAR); Urine Color Yellow (Yellow); pH Urine 5 (5-7)
[2021-10-08 16:11] LABS: Add Urine Microscopic? YES; Bilirubin Urine Neg (Negative); Blood Urine 3+ (Negative); Glucose Urine UA Norm (Normal); Ketones Urine Negative (Negative); Leukocyte Esterase Urine 2+ (Negative); Nitrate Urine Negative (Negative); Urobilinogen Urine Norm (Negative)
[2021-10-08 16:12] LABS: Bacteria Urine 3+ /hpf; RBC Urine TOO NUMEROUS TO CNT /hpf (0-2); Squamous Epithelial Cell Urine 0-4 /hpf (0-5); WBC Urine >100 /hpf (0-5)
[2021-10-08 16:14] LABS: Add Urine Culture? Yes; Coarse Granular Casts Urine 0-4 /lpf; Other Casts Urine WBC CAST /lpf
--- NOTE | 2021-10-08 16:26 | ECG_ITS ---
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 Measurements Intervals [place] Rate: 69 P: 80 ID: [id number] QRS: 74 QRSD: 102 T: -24 QT: 410 QTc: 441 Interpretive Statements SINUS RHYTHM NONSPECIFIC ST & T-WAVE ABNORMALITY Compared to ECG 10/08/2021 14:31:07 T-wave abnormality now present Supraventricular tachycardia no longer present ST (T wave) deviation no longer present Electronically Signed On 10-08-2021 19:43:19 CDT by Lupillo Avelar M.D. [email or web address]/[id number]
[2021-10-08 16:27] LABS: Anion Gap 19.9 (5-19); Potassium 2.9 mmol/L (3.5-5.1)
[2021-10-08] MEDS: cefTRIAXone 1,000 MG in sodium chloride 0.9% (plus) 50 ML 100 MG IV (17:29)
[2021-10-08] MEDS: potassium chloride premix 100 ML 50 MEQ IV (17:29)
--- NOTE | 2021-10-08 17:37 | PM.HP ---
Providers/Chief Complaint Primary Care Provider: Robin Marroquin DO Chief Complaint: AFIB W/RVR - SICK SINUS SYNDROME History of Present Illness Freda Kline is a 80 year old female with history of bioprosthetic mitral valve medic mitral valve, renal artery stenosis, paroxysmal A. fib, chronic kidney disease stage III, TIA, stroke with left-sided hemiparesis, resident of a fdc presented today after an episode of drowsiness. Patient is not able provide history I called [facility], nurse stated that today patient was very drowsy and obtunded, they knew she came back from [facility] 2 weeks ago and since then she has been having loose stools and today it got more liquidy, they have not noticed any fever, patient did not endorse any chest pain. She has history of dementia, she was at [facility] for sick sinus syndrome evaluation status post pacemaker placement, she was also treated for suspicion of infective endocarditis with multiple antibiotics however she was not discharged on any. Today when nurse checked on her she was obtunded, her blood sugar was fine, when they checked her heart rate it was in 140s and all of a sudden it dropped to 30s, they started arranging for crash cart and meanwhile her heart rate jumped up to 150s again. No CPR was done, she never lost pulse. She started turning around. Most of the time she would keep her eyes closed and talk, she is two-person assist, bedbound, at baseline could carry a decent conversation but sometimes would not comply with verbal commands. I have reviewed her records from the [facility], she is not on any antibiotics. Her last antibiotic use was 2 weeks ago at [facility] In the ER she has been diagnosed with electrolyte imbalance, UTI, she has history of ESBL UTI, new diagnosis of C. difficile Cardizem drip has been turned off, she is currently in sinus rhythm I could also see paced rhythm on telemetry she is hemodynamically stable she is able to tell me her name however she would not open her eyes to verbal command despite answering questions and comprehending in the ER Review of Systems General: Reports: ROS unobtainable due to medical condition (Dementia, hypoactive delirium) Medications/Allergies Home Medications Medication Instructions Recorded Confirmed Last Taken Type acetaminophen 325 mg capsule 325 mg PO DAILY PRN 05/06/19 10/08/21 Unknown History polyethylene glycol 3350 17 17 gm PO DAILY@79905/06/19 10/08/21 10/08/21 History gram/dose oral powder (Miralax) sennosides 8.6 mg tablet (senna) 17.2 mg PO BID@ PRN 05/06/19 10/08/21 10/08/21 History albuterol sulfate 90 mcg/actuation 2 puff INHALATION Q6H PRN #6.7 gm 07/15/19 10/08/21 Unknown Rx aerosol inhaler (ProAir HFA) cholecalciferol (vitamin D3) 25 25 mcg PO DAILY@79908/22/20 10/08/21 10/08/21 08:30 History mcg (1,000 unit) tablet (Vitamin D3) cyanocobalamin (vitamin B-12) 1,000 mcg PO DAILY@79908/22/20 10/08/21 10/08/21 08:30 History 1,000 mcg tablet (Vitamin B-12) pantoprazole 40 mg tablet,delayed 40 mg PO BID@08/22/20 10/08/21 10/08/21 08:30 History release diltiazem HCl 240 mg 240 mg PO DAILY 11/23/20 10/08/21 10/08/21 08:30 History capsule,extended release 24 hr apixaban 5 mg tablet 5 mg PO BID 10/08/21 10/08/21 10/08/21 08:30 History atorvastatin 80 mg tablet 80 mg PO QPM 10/08/21 10/08/21 10/07/21 History carvedilol 6.25 mg tablet 6.25 mg PO BID 10/08/21 10/08/21 10/08/21 08:30 History fluoxetine 10 mg tablet 20 mg PO DAILY 10/08/21 10/08/21 10/08/21 08:30 History hydrochlorothiazide 12.5 mg tablet 12.5 mg PO DAILY 10/08/21 10/08/21 10/08/21 08:30 History lorazepam 0.5 mg tablet (Ativan) 0.5 mg PO DAILY PRN 10/08/21 10/08/21 10/08/21 08:30 History mirtazapine 7.5 mg tablet 7.5 mg PO DAILY 10/08/21 10/08/21 10/07/21 History multivitamin with minerals-iron 9 ml PO DAILY 10/08/21 10/08/21 10/08/21 History fumarate 9 mg iron/15 mL oral liquid (Multi Vitamin) ondansetron 4 mg disintegrating 4 mg PO Q6H 10/08/21 10/08/21 Unknown History tablet ramelteon 8 mg tablet 8 mg PO QPM 10/08/21 10/08/21 10/07/21 History Allergies Allergy/AdvReac Type Severity Reaction Status Date / Time amoxicillin [From Amoxil] Allergy ALGY-Hives Verified 10/08/21 15:35 ciprofloxacin [From Cipro] Allergy rash Verified 10/08/21 15:35 nitrofurantoin Allergy ALGY-Rash Verified 10/08/21 15:35 [From Macrobid] Iodinated Contrast Media AdvReac Rapid Pulse Verified 10/08/21 15:35 propafenone [From Rythmol] AdvReac NDR-Nausea Verified 10/08/21 15:35 PFSH Acute PFSH: Medical History Anxiety Constipation Diverticulosis Dysphagia GERD (gastroesophageal reflux disease) Gross hematuria H/O: CVA (cerebrovascular accident) Hypercholesterolemia Hypertension Other microscopic hematuria Recurrent UTI Urolithiasis Surgical History H/O colonoscopy yrs ago H/O esophagogastroduodenoscopy never had one H/O mitral valve replacement History of appendectomy History of hysterectomy History of renal stent History of tonsillectomy Family History Brother Cancer Hyperlipidemia Father Heart disease Stroke Sister Bleeding disorder hemorrhaged Other CAD (coronary artery disease) Hypertension Denies family history of Anesthesia complication Social History Smoking and tobacco status: never smoked Alcohol intake: never Lives independently: No Household members: spouse Housing: House Marital status: Current occupational status: disabled Current gender identity: Female Vitals/I&O/Wt Last Vital Signs Temp 98.0 F 10/08/21 14:23 Pulse 69 10/08/21 16:03 Resp 15 10/08/21 16:03 BP 115/56 10/08/21 16:03 Pulse Ox 95 10/08/21 16:03 10/08/21 10/08/21 10/08/21 06:59 14:59 22:59 Intake Total 50 / 50 Balance 50 / 50 Weight last 48 hrs Weight 58.967 kg Physical Exam Narrative: Patient is laying supine She is keeping her eyes closed however able to answer my questions, she is able to tell me her name She has left-sided facial droop, and unable to assess her vision acuity as she is not opening her eyes however answering my questions appropriately Poor historian S1, S2 variable Flank looks dehydrated Abdomen soft Multiple bruises on her lower extremities No signs of edema Left-sided hemiparesis with spastic hemiplegia Saturating well on room air Data : 10/08/21 15:20 10/08/21 15:20 A&P Assessment and plan (1) Acute UTI: Status: Acute (2) Dysrhythmia: Status: Acute (3) Urolithiasis: Status: Acute Qualifiers: Urinary calculus location: upper urinary tract Qualified Code(s): N20.9 - Urinary calculus, unspecified (4) Chronic anticoagulation: Status: Acute (5) Gross hematuria: Status: Acute (6) CAD (coronary artery disease): Status: Acute Qualifiers: Coronary Disease-Associated Artery/Lesion type: [place] artery [place] vs. transplanted heart: [place] heart Associated angina: without angina Qualified Code(s): I25.10 - Atherosclerotic heart disease of [place] coronary artery without angina pectoris (7) Atrial fibrillation: Status: Acute (8) H/O prosthetic mitral valve: Status: Acute (9) Other microscopic hematuria: Status: Acute (10) Recurrent UTI: Status: Acute (11) Dysphagia: Status: Acute (12) C. difficile diarrhea: Status: Acute Plan C. difficile diarrhea Clinically dehydrated Start IV fluids P.o. vancomycin Recurrent UTI ESBL UTI Start imipenem Hypoactive delirium due to underlying UTI and dehydration Assessed in ICU Neurological neurochecks every 4 hours Hemodynamically stable, afebrile She does carry history of sick sinus syndrome, currently I see paced rhythm on telemetry Pacemaker interrogation She was recently treated for infective endocarditis at [facility] Her last antibiotic use was 15 days ago Microscopic hematuria Hemoglobin stable Abnormal UA noted She follows up with Dr. Robert Nonobstructive kidney stones on previous CT scan A. fib RVR I will discontinue Cardizem drip, continue her p.o. AV arleth blocking agents Continue Eliquis Full code We will keep her on dysphagia diet DVT prophylaxis sufficed with Eliquis C. difficile isolation Attestations Medical Necessity Statement*: Anticipating more than 2 midnights in the hospital Time Spent in Patient Care: 35mins Coding Level of Care Code Acute Educator Senior Clinical for Chg Fwd Diagnoses Acute UTI N39.0 Dysrhythmia I49.9 Urolithiasis N20.9 Urinary calculus location: upper urinary tract Chronic anticoagulation Z79.01 Gross hematuria R31.0 CAD (coronary artery disease) I25.10 Coronary Disease-Associated Artery/Lesion type: [place] artery [place] vs. transplanted heart: [place] heart Associated angina: without angina Atrial fibrillation I48.91 H/O prosthetic mitral valve Z95.2 Other microscopic hematuria R31.29 Recurrent UTI N39.0 Dysphagia R13.10 C. difficile diarrhea A04.72
--- NOTE | 2021-10-08 19:54 | PC.NURSE ---
Transfer Note Patient transferred to ICU from ER via stretcher. Handoff received from KATHE Riley. Patient oriented to environment and equipment. Covering service notified. Orders reviewed and will continue to monitor. Patient belongings include socks placed at bedside. Patient lethargic upon arrival but awakens easily, oriented to self and time. Sacral area noted to be red, no other wounds or skin issues noted at this time
--- NOTE | 2021-10-08 20:26 | ECG_ITS ---
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 Measurements Intervals [place] Rate: 70 P: 67 NM: 195 QRS: 72 QRSD: 106 T: -42 QT: 360 QTc: 389 Interpretive Statements UNCERTAIN IRREGULAR RHYTHM ELECTRONIC VENTRICULAR PACEMAKER -- CONTOUR ANALYSIS BASED ON INTRINSIC RHYTHM NONSPECIFIC ST & T-WAVE ABNORMALITY Compared to ECG 10/08/2021 16:43:14 Sinus rhythm no longer present T-wave abnormality still present Electronically Signed On 10-09-2021 18:38:34 CDT by Lupillo Avelar M.D. [id number]
[2021-10-08] MEDS: carvedilol 6.25 mg Tablet PO (20:48)
[2021-10-08] MEDS: pantoprazole DR 40 mg Tablet PO (20:48)
[2021-10-08] MEDS: apixaban 5 mg Tablet PO (20:48)
[2021-10-08] MEDS: atorvastatin 40 mg Tablet 80 MG PO (20:48)
[2021-10-08 20:49] LABS: D Dimer 1.15 ug/mIFEU (0-0.59)
[2021-10-09] VITALS (51 sets, daily range): BP systolic 46–137; BP diastolic 37–104; PULSE 53–153; RESP 5–32; TEMP 37.7; O2SAT 86–99; BMI 21.4
[2021-10-09 00:23] LABS: Prolactin 15.92 ng/mL (4.8-23.3)
[2021-10-09] MEDS: lactated ringers 500 ML 999 ML IV ×2 (02:06→03:18)
--- NOTE | 2021-10-09 02:17 | PC.NURSE ---
Pacemaker Unsure on brand of pacemaker patient has, attempted to interrogate pacemaker with [employer], [employer], and [employer] interrogator which were all unsuccessful. Will attempt to call family in morning and inquire about pacemaker brand.
--- NOTE | 2021-10-09 03:27 | PC.NURSE ---
Blood Pressure 0151: Notified hospitalist blood pressure trending low, received orders for LR fluid bolus 500 mls. 0258: Notified hospitalist LR bolus finished infusing and patient blood pressure unreadable with monitor/manual BP cuff. Received orders for 500 ml LR fluid bolus and Levophed.
--- NOTE | 2021-10-09 04:30 | PC.NURSE ---
IV Stopped Right upper arm IV infiltrated, stopped IV and applied a warm compress. Contacted hospitalist for central line placement.
--- NOTE | 2021-10-09 05:18 | XRR_ITS ---
PROCEDURE INFORMATION: Exam: XR Chest Exam date and time: 10/09/2021 5:25 AM Age: 80 years old Clinical indication: Device placement; Picc; Additional info: Line placement TECHNIQUE: Imaging protocol: XR of the chest. Views: 1 view. COMPARISON: CR (CHEST, ) 10/08/2021 2:42 PM FINDINGS: Tubes, catheters and devices: Cardiac rhythm maintenance device is in place. Right IJ central venous catheter terminates in the region of the superior cavoatrial junction. Lungs: Calcified left lung granuloma. No focal airspace consolidation. Pleural spaces: Unremarkable. No pleural effusion. No pneumothorax. Heart/Mediastinum: Prior mitral valve replacement. Bones/joints: Unremarkable. XR/XR chest 1V portable [id number] IMPRESSION: No acute cardiopulmonary abnormality. Right IJ central venous catheter terminates in the region of the superior cavoatrial junction.
--- NOTE | 2021-10-09 05:46 | ANES.PROC ---
Anesthesia Procedures Procedure/Date: 10/09/21 Central Venous Insert: Central Venous Line: RIJ Time Out Performed: Yes Consent: requested by attending/covering physician, risks and benefits reviewed, patient agrees to proceed and emergency procedure Central Line: New Anesthesia monitors: pulse oximetry, EKG, BP cuff and oxygen Vein cannulated: right internal jugular Ultrasound used: to identify patency to vessel and to visualize needle entry to vein Post procedure: Obtain Chest X-Ray Additional Comments: Right IJ central line placement, ultrasound guided needle entry, into vein, flashback nonpulsatile dark red blood, repeat ultrasound showed guidewire in right IJ -Checks x-ray has confirmed placement, tip of catheter seen right above right atrium
--- NOTE | 2021-10-09 06:22 | PC.NURSE ---
Central Line Placement Contacted patient and [id number] twice with no answer. Unable to leave message on phone, left a message on [id number]'s phone. Called [facility] and obtained the contact information of a son, Alexandre Kline. Called patient son, Alexandre, to obtain consent. Witnessed verbal consent from Alexandre with a second RN. 0440: Time out performed by nurse, hospitalist at bedside for central venous catheter insertion. 0450: Hospitalist inserted central line with nurse assist. Order placed for portable x-ray to confirm placement. 0518:Dr. Ramon verified central line placement on x-ray.
[2021-10-09 09:11] LABS: Basophils # 0.1 10^3/uL (0.0-0.1); Basophils % 0.6 %; Eosinophils # 0.6 10^3/uL (0.0-0.8); Eosinophils % 3.3 %; Hematocrit 34.5 % (37.0-47.0); Hemoglobin 11.5 g/dL (11.5-15.3); Lymphocytes # 1.9 10^3/uL (0.8-4.8); Lymphocytes % 10.8 %; Mean Corpuscular HGB Conc 33.3 g/dL (30.0-36.0); Mean Corpuscular Hemoglobin 31.9 pg (28.0-34.0); Mean Corpuscular Volume 95.6 fl (81-99); Monocytes # 1.2 10^3/uL (0.2-0.9); Monocytes % 6.5 %; Neutrophils # 13.97 10^3/uL (1.8-7.7); Neutrophils % 78.2 %; Nucleated Red Blood Cells % 0 %; Platelet Count 353 10^3/cmm (130-400); Red Blood Count 3.61 10^6/uL (4.1-5.3); Red Cell Distribution Width 14.7 % (12.1-15.1); White Blood Count 17.9 10^3/uL (4.0-10.0)
[2021-10-09] MEDS: apixaban 5 mg Tablet PO ×2 (09:23→17:43)
[2021-10-09] MEDS: pantoprazole DR 40 mg Tablet PO ×2 (09:23→21:21)
[2021-10-09] MEDS: fluoxetine 20 mg Capsule PO (09:23)
[2021-10-09 09:28] LABS: Lactic Acid level (Lactate) 1.4 mmol/L (0.5-2.2)
[2021-10-09 09:29] LABS: Anion Gap 11.1 (5-19); Blood Urea Nitrogen 11 mg/dL (8-23); C Reactive Protein 118.8 mg/L (0.0-4.9); Calcium 7.9 mg/dL (8.5-10.5); Carbon Dioxide 29 mmol/L (22-29); Chloride 104 mmol/L (98-107); Glucose 127 mg/dL (65-115); Osmolality Calculated 295 mOsm/kg (285-295); Sodium 142 mmol/L (136-145)
[2021-10-09] MEDS: dilTIAZem ER (24HR) 240 mg Capsule PO (09:40)
--- NOTE | 2021-10-09 09:40 | PC.CHAP ---
Pastoral Care Encounter/Spiritual Assessment Type of Contact [] Declined waste transportation technician visit [] Patient/Family/Request visit [] Outpatient visit [] Follow-up visit [] Physician referral [] Code/Alert [x] Routine visit [] Staff referral [] Actively dying [x] Patient sleeping [] Family support [] [] Out of room [] Palliative care [] [x] Receiving care in room [] Pre-surgical visit [] Trauma [] Long length of stay [x] ICU visit [x] Other: quarantined Relational/Emotional Strength [] Patient feels connected with others/family/visitors/staff [] Distress [] Loneliness/isolation [] Abandonment Spirituality of Patient [] Person of Arielle [] Attends Lutheran of their Arielle [] Believes in Prayer [] Reads Bible or Methodist materials [] There are Spiritual issues to be addressed Civil Engineering Assistant Interventions [x] Prayer [] Active listening [] Non-anxious presence [] Spiritual/emotional support [] Crisis/trauma care [] Spiritual counseling [] Bereavement support [] Provided bereavement packet [] Provided Bible/devotional materials [] Provided toy/stuffed animal, coloring book to patient or family member [] Provided Communion [] Anointing/[place] [] Salvation [x] Completed spiritual assessment [] Other: Impact on Illness or Injury [] Angry [] Fearful [] Anxious [] Often cries [] Exhaustion [] Unable to work [] Unable to attend pentecostal [] Unable to walk/stand [] Unable to read [] Unable to drive [] Unable to eat/drink [] Unable to sleep [] Unable to be with family [] Patient intubated [] Other: Summary Time spent with patient
[2021-10-09 10:03] LABS: Potassium 2.1 mmol/L (3.5-5.1)
--- NOTE | 2021-10-09 10:08 | PC.NURSE ---
Pacemaker Per [facility]. Pt's pacemaker is a [employer] model number GTIN [id number]
[2021-10-09] MEDS: lidocaine 1% 5 ML in potassium chloride premix 100 ML 25 ML IV ×2 (11:33→15:21)
--- NOTE | 2021-10-09 11:54 | PM.PN ---
Subjective Subjective: This morning I spoke to her son he is stating that pacemaker was placed in [place] probably in 2019 I called [place] radha to know more about the pacemaker she does have a Biotronik cardio messenger smart pacemaker GTI N #[id number] This morning patient is awake and alert able to communicate, she is stating that her neck is hurting, last night she required vasopressors for hypotension anesthesia placed right-sided central line No active chest pain patient is not endorsing any shortness of breath, nausea, vomiting or burning micturition Her heart rate does fluctuate between 50s to 130s Pacemaker interrogation today.. I will trend her troponins, Prolactin 15 TSH 1.4 Potassium this morning 2.1 Will check magnesium level C. difficile positive Vitals/I&O/Wt Last Vital Signs Temp 97.2 F L 10/08/21 20:00 Pulse 66 10/08/21 22:00 Resp 7 L 10/08/21 20:35 BP 105/45 10/08/21 20:35 Pulse Ox 99 10/08/21 20:35 10/08/21 10/09/21 10/09/21 22:59 06:59 14:59 Intake Total 2300 / 2300 1228.702 / 3528.702 225.298 / 225.298 Balance 2300 / 2300 1228.702 / 3528.702 225.298 / 225.298 Weight last 48 hrs Weight 54.941 kg Weight 54.941 kg Weight 58.967 kg Physical Exam Narrative: Patient is more awake and alert today Answer my questions appropriately Making eye contact Left-sided weakness Right-sided central line in place Hemodynamically stable heart rate fluctuated between 60-1 30s Abdomen soft No signs of edema No signs of meningitis Saturating well on room air Data : 10/09/21 08:55 10/09/21 08:55 Micro: Microbiology 10/08/21 15:45 C.difficile Toxin B Gene (PCR) - Final Stool - Stool Aspirate A&P Assessment and plan (1) C. difficile diarrhea: Status: Acute (2) Acute UTI: Status: Acute (3) Dysrhythmia: Status: Acute (4) Chronic anticoagulation: Status: Acute (5) Weakness due to cerebrovascular accident: Status: Acute (6) H/O: CVA (cerebrovascular accident): Status: Acute (7) Recurrent UTI: Status: Acute (8) Atrial fibrillation: Status: Acute (9) Pacemaker: Status: Acute Plan C. difficile diarrhea: P.o. vancomycin, Secondary to GI loss potassium 2.1 Potassium repleted Check magnesium level Serial abdominal exams, monitor for progression to severe C. difficile because of leukocytosis, no fever or worsening of creatinine noted Hold off on adding metronidazole for now Hypovolemic hypotension Currently requiring levo/vasopressors Right-sided central line placed 10/09 No active signs of cardiogenic shock or sepsis She is afebrile Noted severe leukocytosis Pacemaker interrogation Sick sinus syndrome Biotronik pacemaker interrogation today If we find any evidence of troubleshooting then will have to arrange for transfer Family is in agreement Patient is full code Dysphagia diet Recurrent UTIs Currently on imipenem ESBL UTI in the past with E. coli Microscopic hematuria without significant loss of blood Continue ICU management Attestations Medical Necessity Statement*: Continue ICU management Time Spent in Patient Care: 30mins Coding Level of Care Code Acute It Quality Assurance Analyst for [facility] Fwd Diagnoses C. difficile diarrhea A04.72 Acute UTI N39.0 Dysrhythmia I49.9 Chronic anticoagulation Z79.01 Weakness due to cerebrovascular accident H/O: CVA (cerebrovascular accident) Z86.73 Recurrent UTI N39.0 Atrial fibrillation I48.91 Pacemaker Z95.0
--- NOTE | 2021-10-09 12:10 | USCV_ITS ---
Freda Kline Age: 80 Gender: F : 1940 Exam Date: 10/09/2021 14:53 Ordering Phys: Freedom Robles MD Technologist: MAIA Exam Location: [facility] [place] Indication: BLE SWELLING HISTORY: Lower extremity swelling. PROCEDURES: Venous duplex imaging was performed in bilateral lower extremities. The following venous structures were evaluated: common femoral vein, profunda vein, proximal portion of the greater saphenous vein, superficial femoral vein, and the popliteal vein. In addition, the posterior tibial and peroneal trunk were evaluated. Serial compression, augmentation maneuvers, and spectral Doppler flow evaluation were performed. FINDINGS: No evidence of DVT seen in any vessel visualized at this time. CONCLUSIONS No evidence of right lower extremity DVT. No evidence of left lower extremity DVT. Ayaan Anderson MD (Electronically Signed) Final Date: 09 Oct 2021 17:00 S
--- NOTE | 2021-10-09 12:10 | CTR_ITS ---
PROCEDURE INFORMATION: Exam: CTA Chest With Contrast Exam date and time: 10/09/2021 10:00 PM Age: 80 years old Clinical indication: Abnormal findings; Abnormal diagnostic tests; Elevated d-dimer; Prior surgery; Surgery date: 6+ months; Surgery type: Mitral valve replaced/ pacemaker; Additional info: Hypotension TECHNIQUE: Imaging protocol: Computed tomographic angiography of the chest with contrast. 3D rendering (Not supervised by radiologist): MIP and/or 3D reconstructed images were created by the technologist. Radiation optimization: All CT scans at this facility use at least one of these dose optimization techniques: automated exposure control; mA and/or kV adjustment per patient size (includes targeted exams where dose is matched to clinical indication); or iterative reconstruction. Contrast material: VISI; Contrast volume: 62 ml; Contrast route: INTRAVENOUS (IV); COMPARISON: CR (CHEST, ) 10/09/2021 5:25 AM RADIATION DOSE METRICS: Total DLP (mGy-cm): 765.8 FINDINGS: Tubes, catheters and devices: Left chest wall cardiac device remains in place with the lead traveling down the left-sided persistent/duplicated SVC, with the lead tip in the right ventricular apical region. Right IJ central catheter is again noted with the tip in the cavoatrial region. Pulmonary arteries: Minimal dilatation of main pulmonary artery at 3.1 cm. There is no pulmonary embolism in the central-proximal segmental branches. Assessment of the peripheral subsegmental small branches is limited. Aorta: No aortic aneurysm. No aortic dissection. Lungs: There is part solid density in the lateral left upper lobe with slightly irregular margin, measuring 17 x 11 mm, series 2, image 80 lung parenchymal assessment is otherwise limited due to artifacts. Calcified granuloma posterolateral left lung base. Bibasilar linear scarring-atelectasis. Another part solid nodular density in the anterior right upper lobe measuring 10 x 8 mm, image 136. A few other tiny nodular densities right upper lobe measuring 1-2 mm, image 125 and 153. Pleural spaces: Small bilateral pleural effusions. No obvious vascular congestion. Heart: Mild 4 chamber cardiomegaly. Mitral valve prosthesis is in place. Extensive coronary calcification. Lymph nodes: Calcified left hilar lymph nodes consistent with chronic granulomatous disease. Mild lying enlarged right hilar lymph node measuring about 13 mm short axis. A few other borderline sized lymph nodes are also seen in the subcarinal and hilar regions. Spleen: Calcified splenic granulomas. Bones/joints: Several images are degraded due to external streak artifacts arising from patient's arm(s). Osteopenia. Soft tissues: Unremarkable. CT/CT angio chest PE protcl [id number] IMPRESSION: 1. No acute PE. Somewhat limited exam due to artifacts. 2. At least 2 part solid nodular densities in both lungs, measuring up to 17 x [address] as described[address] Recommend CT Chest at 3-6 months. Subsequent management based on the most suspicious nodule(s). (Reference: Gelacio) 3. Additional other tiny nodular densities are present measuring 1-2 mm. No acute lung consolidation or large ground-glass opacities. 4. Mild nonspecific hilar adenopathy 5. Bilateral small pleural effusions. 6. Cardiac findings as above. No obvious vascular congestion. 7. Other nonacute findings as described. REFERENCES: Gelacio Pryor, et al. Guidelines for Management of Incidental Pulmonary Nodules Detected on CT Images: From the Fleischner Society 2017. Radiology. 2017;284(1):228-243.
[2021-10-09 12:50] LABS: Magnesium 1.5 mg/dL (1.7-2.3)
[2021-10-09] MEDS: calcium gluconate 0.9% NaCL 1 GM/50 ML PREMIX IV (13:53)
--- NOTE | 2021-10-09 14:57 | PC.NURSE ---
Patient has not had a wet brief since beggining of shift. NUrse bladder scanned and it shows 360mL of urine retained. NUrse alerted Dr burns and recieved orders for a osullivan due to urinary retention. Patient also has excoriation to the perenium and has been having frequent liquid bowel movement every 30 minutes. Nurse received order for rectal tube.
[2021-10-09] MEDS: acetaminophen 325 mg Tablet PO (15:20)
[2021-10-09] MEDS: LORazepam 0.5 mg Tablet PO (16:27)
[2021-10-09] MEDS: carvedilol 6.25 mg Tablet PO (17:43)
[2021-10-09] MEDS: atorvastatin 40 mg Tablet 80 MG PO (17:43)
--- NOTE | 2021-10-09 19:45 | PC.NURSE ---
Shift Summary: patient has rested in bed throughout the day. has been able to answer all orientation questions, but is obviously confused, repeated questioning, unusual requests, reports pain, but then denies it when asked about location. Morton catheter placed due to urinary retention and for moisture control. Rectal tube placed due to frequent liquid bowel movement and excoriation. Pacemaker has been interrogated and report is in paper chart.
[2021-10-09] MEDS: acetaminophen 500 mg Tablet PO (19:53)
[2021-10-09] MEDS: diphenhydrAMINE 50 mg/mL SDV 1mL 25 MG IVP (21:47)
[2021-10-09] MEDS: iodixanol 320 mg/mL 100mL Btl IV (22:03)
[2021-10-10] VITALS (25 sets, daily range): BP systolic 91–150; BP diastolic 40–104; PULSE 60–87; RESP 11–26; TEMP 36.4–37.1; O2SAT 86–98
[2021-10-10 03:48] LABS: Basophils % 0.2 %; Eosinophils % 0.3 %; Hematocrit 30.3 % (37.0-47.0); Hemoglobin 10.2 g/dL (11.5-15.3); Lymphocytes # 1.2 10^3/uL (0.8-4.8); Lymphocytes % 9.5 %; Mean Corpuscular HGB Conc 33.7 g/dL (30.0-36.0); Mean Corpuscular Hemoglobin 31.7 pg (28.0-34.0); Mean Corpuscular Volume 94.1 fl (81-99); Mean Platelet Volume 10.5 fL (7.4-10.4); Monocytes # 0.1 10^3/uL (0.2-0.9); Monocytes % 0.9 %; Neutrophils # 11.09 10^3/uL (1.8-7.7); Neutrophils % 88.4 %; Nucleated Red Blood Cells % 0 %; Platelet Count 284 10^3/cmm (130-400); Red Blood Count 3.22 10^6/uL (4.1-5.3); Red Cell Distribution Width 14.9 % (12.1-15.1); White Blood Count 12.5 10^3/uL (4.0-10.0)
[2021-10-10 04:21] LABS: Anion Gap 11.8 (5-19); Blood Urea Nitrogen 11 mg/dL (8-23); Carbon Dioxide 28 mmol/L (22-29); Chloride 107 mmol/L (98-107); Glucose 149 mg/dL (65-115); Magnesium 1.4 mg/dL (1.7-2.3); Osmolality Calculated 300 mOsm/kg (285-295); Sodium 144 mmol/L (136-145)
[2021-10-10 04:25] LABS: Potassium 2.8 mmol/L (3.5-5.1)
[2021-10-10] MEDS: potassium chloride premix 100 ML 25 MEQ IV (05:19)
--- NOTE | 2021-10-10 07:00 | PC.NURSE ---
Bedside report completed with NIDHI Hopkins.
[2021-10-10] MEDS: apixaban 5 mg Tablet PO ×2 (08:50→17:07)
[2021-10-10] MEDS: dilTIAZem ER (24HR) 240 mg Capsule PO (08:50)
[2021-10-10] MEDS: carvedilol 6.25 mg Tablet PO ×2 (08:50→17:06)
[2021-10-10] MEDS: potassium chloride oral liq 20 mEq/15 mL UDC PO (08:50)
[2021-10-10] MEDS: pantoprazole DR 40 mg Tablet PO ×2 (08:50→19:42)
[2021-10-10] MEDS: fluoxetine 20 mg Capsule PO (08:50)
--- NOTE | 2021-10-10 10:32 | PC.CHAP ---
Pastoral Care Encounter/Spiritual Assessment Type of Contact [] Declined leasing property manager visit [] Patient/Family/Request visit [] Outpatient visit [] Follow-up visit [] Physician referral [] Code/Alert [x] Routine visit [] Staff referral [] Actively dying [] Patient sleeping [] Family support [] [] Out of room [] Palliative care [] [] Receiving care in room [] Pre-surgical visit [] Trauma [] Long length of stay [x] ICU visit [x] Other: patient confused.. but home sick Relational/Emotional Strength [] Patient feels connected with others/family/visitors/staff [] Distress [] Loneliness/isolation [] Abandonment Spirituality of Patient [] Person of Arielle [] Attends Judaism of their Arielle [] Believes in Prayer [] Reads Bible or Sikhism materials [] There are Spiritual issues to be addressed Correctional Therapy Teacher Interventions [x] Prayer [] Active listening [] Non-anxious presence [] Spiritual/emotional support [] Crisis/trauma care [] Spiritual counseling [] Bereavement support [] Provided bereavement packet [] Provided Bible/devotional materials [] Provided toy/stuffed animal, coloring book to patient or family member [] Provided Communion [] Anointing/[place] [] Salvation [x] Completed spiritual assessment [] Other: Impact on Illness or Injury [] Angry [] Fearful [] Anxious [] Often cries [] Exhaustion [] Unable to work [] Unable to attend yazidi [] Unable to walk/stand [] Unable to read [] Unable to drive [] Unable to eat/drink [] Unable to sleep [] Unable to be with family [] Patient intubated [] Other: Summary Time spent with patient
--- NOTE | 2021-10-10 11:46 | PM.PN ---
Subjective Subjective: Patient is endorsing feeling improved and much better Rectal tube was placed because of her profuse diarrhea Significant left leg imbalance She is able to tolerate her diet She has been spoonfed by her nurse Not requiring vasopressors She can be transferred to [facility] Pacemaker interrogation did not show any malfunction or troubleshooting Vitals/I&O/Wt Last Vital Signs Temp 97.7 F 10/10/21 05:23 Pulse 63 10/10/21 10:00 Resp 26 H 10/10/21 10:00 BP 114/74 10/10/21 10:00 Pulse Ox 95 10/10/21 10:00 10/09/21 10/10/21 10/10/21 22:59 06:59 14:59 Intake Total 620 / 1005.298 100 / 1105.298 200 / 200 Output Total 425 / 425 Balance 620 / 1005.298 -325 / 680.298 200 / 200 Weight last 48 hrs Weight 56.971 kg Weight 54.941 kg Weight 54.941 kg Weight 58.967 kg Physical Exam Narrative: Patient is awake and alert Making eye contact Nonfocal neuro exam Right-sided IJ Complaining of neck pain No signs of meningitis Looks euvolemic Tolerating her diet S1, S2 variable, A. fib paced rhythm Heart rate in 90s Soft abdomen Rectal tube with liquid stool Saturating well on room air Urinary Catheter Management: Morton: Cath Placed During This Visit: yes Reason for Continuing Indwelling Catheter: Accurate Measurement of Urinary Output in Critically Ill Patients Urinary Catheter Date of Insertion: 10/09/21 Urinary Catheter Time of Insertion: 14:55 Data : 10/10/21 03:22 10/10/21 03:22 Micro: Microbiology 10/08/21 15:45 Urine Culture - Preliminary Urine,Clean Catch Strep species, gamma-hemolytic A&P Assessment and plan (1) Pacemaker: Status: Acute (2) C. difficile diarrhea: Status: Acute (3) Chronic anticoagulation: Status: Acute (4) Atrial fibrillation: Status: Acute (5) H/O prosthetic mitral valve: Status: Acute (6) H/O: CVA (cerebrovascular accident): Status: Acute (7) Recurrent UTI: Status: Acute Plan C. difficile diarrhea: Continue p.o. vancomycin Leukocytosis trending down Afebrile Does not meet criteria for severe C. difficile Hemodynamically stable not requiring pressors Hypokalemia related to GI loss potassium repleted, magnesium 1.4, Magnesium: Repleted Generalized weakness: Improved Recent CVA, she is on modified diet, she had residual left-sided weakness A. fib, paced rhythm, mitral valve thrombus Continue Eliquis Recurrent UTI Considering C. difficile I would hold off on imipenem for now She seems to be colonized with bacteria as, current urine culture showing strep species, hemolytic Transfer out of ICU Agreeable to go back to [place] in next 48 hours Patient interrogation done: No active troubleshooting noticed, no significant arrhythmia Attestations Medical Necessity Statement*: Transfer out of ICU Time Spent in Patient Care: 30min Coding Level of Care Code Acute Physical Therapist Technician for [facility] Fwd Diagnoses Pacemaker Z95.0 C. difficile diarrhea A04.72 Chronic anticoagulation Z79.01 Atrial fibrillation I48.91 H/O prosthetic mitral valve Z95.2 H/O: CVA (cerebrovascular accident) Z86.73 Recurrent UTI N39.0
[2021-10-10] MEDS: atorvastatin 40 mg Tablet 80 MG PO (17:06)
--- NOTE | 2021-10-10 17:30 | PC.NURSE ---
Addendum entered by Opal Garza RN 10/10/21 17:40: Correction belongings: patient has a pair of black socks on. Original Note: Report faxed to [employer] [facility] [employer]. Report verbally given via telephone to NIDHI Yarbrough. Pt transferred to room 275. No belongings present.
--- NOTE | 2021-10-10 17:38 | PC.NURSE ---
Contacted Imtiaz Kline to notify of moving Freda to room 275.
[2021-10-10] MEDS: LORazepam 0.5 mg Tablet PO (20:36)
[2021-10-11] VITALS (11 sets, daily range): BP systolic 123–145; BP diastolic 61–91; PULSE 61–96; RESP 15–22; TEMP 36.6–37.5; O2SAT 93–97
[2021-10-11 02:48] LABS: Basophils % 0.1 %; Hemoglobin 9.3 g/dL (11.5-15.3); Lymphocytes # 1.6 10^3/uL (0.8-4.8); Lymphocytes % 11.5 %; Mean Corpuscular HGB Conc 33.2 g/dL (30.0-36.0); Mean Corpuscular Hemoglobin 31.7 pg (28.0-34.0); Mean Corpuscular Volume 95.6 fl (81-99); Mean Platelet Volume 11.1 fL (7.4-10.4); Monocytes # 0.6 10^3/uL (0.2-0.9); Neutrophils # 11.96 10^3/uL (1.8-7.7); Neutrophils % 83.8 %; Nucleated Red Blood Cells % 0 %; Platelet Count 325 10^3/cmm (130-400); Red Blood Count 2.93 10^6/uL (4.1-5.3); Red Cell Distribution Width 15.2 % (12.1-15.1); White Blood Count 14.3 10^3/uL (4.0-10.0)
[2021-10-11 03:18] LABS: Anion Gap 11.5 (5-19); Carbon Dioxide 28 mmol/L (22-29); Chloride 110 mmol/L (98-107); Glucose 150 mg/dL (65-115); Magnesium 1.7 mg/dL (1.7-2.3); Potassium 3.5 mmol/L (3.5-5.1); Sodium 146 mmol/L (136-145)
[2021-10-11 03:31] LABS: Blood Urea Nitrogen 13 mg/dL (8-23); Calcium 8.1 mg/dL (8.5-10.5); Osmolality Calculated 305 mOsm/kg (285-295)
--- NOTE | 2021-10-11 08:03 | PC.SOCIAL ---
IMM UPDATED IMM dated signed and copy put in chart and copy given to patient
[2021-10-11] MEDS: pantoprazole DR 40 mg Tablet PO ×2 (08:07→21:39)
[2021-10-11] MEDS: apixaban 5 mg Tablet PO (08:07)
[2021-10-11] MEDS: fluoxetine 20 mg Capsule PO (08:08)
[2021-10-11] MEDS: carvedilol 6.25 mg Tablet PO ×2 (08:08→17:26)
[2021-10-11] MEDS: dilTIAZem ER (24HR) 240 mg Capsule PO (08:08)
--- NOTE | 2021-10-11 11:08 | PM.PN ---
Subjective Subjective: I asked nurse to pull out her rectal tube today, Morton catheter showing concentrated dark-colored urine Patient is not endorsing any new events She is feeling better as compared to yesterday Electrolytes replenished Vitals/I&O/Wt Last Vital Signs Temp 98.5 F 10/11/21 07:30 Pulse 68 10/11/21 07:30 Resp 19 H 10/11/21 07:30 BP 124/75 10/11/21 07:30 Pulse Ox 95 10/11/21 07:30 10/10/21 10/11/21 10/11/21 22:59 06:59 14:59 Intake Total 480 / 1032 480 / 480 Output Total 300 / 300 Balance 480 / 1032 -300 / 732 480 / 480 Weight last 48 hrs Weight 56.971 kg Physical Exam Narrative: Patient laying flat in her bed Saturating well on room air Right-sided central line in place Abdomen soft No active signs of dehydration Rectal tube is half filled with loose stools Dark color hemoconcentrated urine Patient able to answer my questions appropriately She does take time to answer my questions Left-sided weakness Urinary Catheter Management: Morton: Cath Placed During This Visit: yes Reason for Continuing Indwelling Catheter: Accurate Measurement of Urinary Output in Critically Ill Patients Urinary Catheter Date of Insertion: 10/09/21 Urinary Catheter Time of Insertion: 14:55 Data : 10/11/21 01:58 10/11/21 01:58 Micro: Microbiology 10/08/21 15:45 Urine Culture - Preliminary Urine,Clean Catch Strep species, gamma-hemolytic A&P Assessment and plan (1) Pacemaker: Status: Acute (2) C. difficile diarrhea: Status: Acute (3) Recurrent UTI: Status: Acute (4) Atrial fibrillation: Status: Acute Plan C. difficile diarrhea: P.o. vancomycin 10-day regimen No signs of severe C. difficile Chronic UTI: Antibiotics discontinued yesterday Electrolyte imbalance hypokalemia hypomagnesemia: Repleted Hypocalcemia: Repleted Will check vitamin D and PTH Patient is full code Recent CVA with left-sided stroke Mitral valve thrombus continue Eliquis A. fib Pacemaker interrogation unremarkable Plan to discharge her tomorrow if clinically stable Attestations Medical Necessity Statement*: Plan to discharge her tomorrow if stable Time Spent in Patient Care: 20mins Coding Level of Care Code Acute Telegraph Repeater Installer for [facility] Fwd Diagnoses Pacemaker Z95.0 C. difficile diarrhea A04.72 Recurrent UTI N39.0 Atrial fibrillation I48.91
[2021-10-11 12:16] LABS: Calcium 8.3 mg/dL (8.5-10.5)
[2021-10-11] MEDS: sodium chlor 0.9% + KCl 20 mEq 20 MEQ/1,000 ML BAG 75 MEQ IV (12:16)
[2021-10-11 12:24] LABS: Parathyroid Hormone 100.6 pg/mL (15-65)
[2021-10-11 12:53] LABS: 25 Hydroxy Vitamin D 36 ng/mL (30-100)
[2021-10-11] MEDS: magnesium oxide 400 mg tablet PO (17:26)
[2021-10-11] MEDS: atorvastatin 40 mg Tablet 80 MG PO (17:26)
[2021-10-11] MEDS: LORazepam 0.5 mg Tablet PO (21:39)
--- NOTE | 2021-10-11 22:25 | XRR_ITS ---
PROCEDURE INFORMATION: Exam: XR Chest Exam date and time: 10/11/2021 10:32 PM Age: 80 years old Clinical indication: Shortness of breath; Additional info: New onset difficulty breathing TECHNIQUE: Imaging protocol: XR of the chest. Views: 1 view. COMPARISON: CR (CHEST, ) 10/09/2021 5:25 AM FINDINGS: Tubes, catheters and devices: Right central venous catheter tip approaching the atrial caval junction. Left-sided pacemaker. Lungs: Right hilar to lower lobe airspace infiltrate. Pleural spaces: Unremarkable. No pleural effusion. No pneumothorax. Heart/Mediastinum: Unremarkable. No cardiomegaly. Bones/joints: Sternotomy wires. XR/XR chest 1V portable [id number] IMPRESSION: 1. Right hilar to lower lobe airspace infiltrate. 2. Right central venous catheter tip approaching the atrial caval junction. 3. Sternotomy wires. 4. Left-sided pacemaker.
[2021-10-11] MEDS: FUROsemide 10 mg/mL SDV 4mL 40 MG IVP (22:39)
[2021-10-12] VITALS (12 sets, daily range): BP systolic 117–215; BP diastolic 46–90; PULSE 60–88; RESP 16–22; TEMP 36.4–37.1; O2SAT 90–100
[2021-10-12 02:38] LABS: Basophils # 0.1 10^3/uL (0.0-0.1); Basophils % 0.3 %; Eosinophils # 0.3 10^3/uL (0.0-0.8); Hematocrit 34.1 % (37.0-47.0); Hemoglobin 10.8 g/dL (11.5-15.3); Lymphocytes # 1.7 10^3/uL (0.8-4.8); Lymphocytes % 7.3 %; Mean Corpuscular HGB Conc 31.7 g/dL (30.0-36.0); Mean Corpuscular Hemoglobin 32.1 pg (28.0-34.0); Mean Corpuscular Volume 101.5 fl (81-99); Mean Platelet Volume 10.5 fL (7.4-10.4); Monocytes # 1.2 10^3/uL (0.2-0.9); Monocytes % 5.2 %; Neutrophils # 20.31 10^3/uL (1.8-7.7); Neutrophils % 85.2 %; Nucleated Red Blood Cells % 0 %; Platelet Count 375 10^3/cmm (130-400); Red Blood Count 3.36 10^6/uL (4.1-5.3); Red Cell Distribution Width 15.8 % (12.1-15.1); White Blood Count 23.8 10^3/uL (4.0-10.0)
[2021-10-12 03:06] LABS: Anion Gap 11.4 (5-19); Blood Urea Nitrogen 18 mg/dL (8-23); Calcium 8.5 mg/dL (8.5-10.5); Carbon Dioxide 30 mmol/L (22-29); Chloride 109 mmol/L (98-107); Glucose 125 mg/dL (65-115); Magnesium 1.6 mg/dL (1.7-2.3); Osmolality Calculated 307 mOsm/kg (285-295); Potassium 3.4 mmol/L (3.5-5.1); Sodium 147 mmol/L (136-145)
[2021-10-12] MEDS: lidocaine 1% 5 ML in potassium chloride premix 100 ML 25 ML IV (06:16)
[2021-10-12] MEDS: magnesium sulfate premix 2 GM/50 ML PIGGYBACK IV (06:18)
[2021-10-12 08:00] LABS: C Reactive Protein 44.9 mg/L (0.0-4.9)
[2021-10-12 08:06] LABS: Procalcitonin 0.23 ng/mL (0-0.5)
[2021-10-12] MEDS: carvedilol 6.25 mg Tablet PO ×2 (08:15→17:43)
[2021-10-12] MEDS: fluoxetine 20 mg Capsule PO (08:15)
[2021-10-12] MEDS: dilTIAZem ER (24HR) 240 mg Capsule PO ×2 (08:15→09:23)
[2021-10-12] MEDS: pantoprazole DR 40 mg Tablet PO ×2 (08:15→20:18)
[2021-10-12] MEDS: magnesium oxide 400 mg tablet PO ×3 (08:15→17:43)
--- NOTE | 2021-10-12 08:30 | PM.PN ---
Subjective Subjective: Overnight events noted, patient aspirated, showing right lower lobe infiltrate Leukocytosis jumped however no fever She is already on Primaxin, She had 2 L output overnight, she is hypertensive Urine color has improved Hemoglobin stable Vitals/I&O/Wt Last Vital Signs Temp 97.9 F 10/12/21 07:01 Pulse 60 10/12/21 07:01 Resp 18 10/12/21 07:01 BP 170/90 10/12/21 07:01 Pulse Ox 100 10/12/21 07:01 10/11/21 10/12/21 10/12/21 22:59 06:59 14:59 Intake Total 240 / 960 1057.5 / 2017.5 Output Total 1999 / 1999 Balance 240 / 960 -942.5 / 17.5 Weight last 48 hrs Weight 55.565 kg Physical Exam Narrative: Patient is able to answer my questions appropriately She is endorsing that she had a rough night Seemed more lethargic today as compared to yesterday No new focal deficit Left-sided weakness Left-sided facial droop Laying supine Currently on 4 L nasal cannula Abdomen soft Bowel sound present Bilateral breath sounds with rhonchi right lung base Urinary Catheter Management: Morton: Cath Placed During This Visit: yes Reason for Continuing Indwelling Catheter: Acute Urinary Retention or Obstruction Urinary Catheter Date of Insertion: 10/09/21 Urinary Catheter Time of Insertion: 14:55 Data : 10/12/21 01:57 10/12/21 01:57 Micro: Microbiology 10/08/21 15:45 Urine Culture - Final Urine,Clean Catch Enterococcus faecium vre A&P Assessment and plan (1) Pacemaker: Status: Acute (2) C. difficile diarrhea: Status: Acute (3) Dysphagia: Status: Acute (4) Recurrent UTI: Status: Acute (5) H/O: CVA (cerebrovascular accident): Status: Acute (6) Atrial fibrillation: Status: Acute (7) Gross hematuria: Status: Acute (8) Chronic anticoagulation: Status: Acute (9) Aspiration pneumonia: Status: Acute Plan Aspiration pneumonia: Currently on imipenem, afebrile, leukocytosis worsens Will do another speech eval For now I will de-escalate her dysphagia diet. C. difficile diarrhea: Continue p.o. vancomycin 10-day regimen Leukocytosis secondary to aspiration Hyponatremia related to dehydration Started D5 half-normal saline at 75 mill per hour Hematuria: Resolved A. fib without RVR Continue anticoagulation She is also taking Eliquis for thrombus of mitral valve Plan to discharge her over the weekend once leukocytosis started trending down Hypokalemia, hypocalcemia and hypomagnesemia: Repleted She has low normal vitamin D high PTH and low calcium Secondary hyperparathyroidism She is full code Dysphagia diet Updated Pacemaker interrogation did not reveal any troubleshooting or malfunction of pacemaker Attestations Medical Necessity Statement*: Discharge over the weekend to [place] Time Spent in Patient Care: 20mins Coding Level of Care Code Acute Vibrating Screed Operator for [facility] Fwd Diagnoses Pacemaker Z95.0 C. difficile diarrhea A04.72 Dysphagia R13.10 Recurrent UTI N39.0 H/O: CVA (cerebrovascular accident) Z86.73 Atrial fibrillation I48.91 Gross hematuria R31.0 Chronic anticoagulation Z79.01 Aspiration pneumonia J69.0
[2021-10-12] MEDS: apixaban 5 mg Tablet PO ×2 (09:23→17:43)
[2021-10-12] MEDS: calcium gluconate 0.9% NaCL 1 GM/50 ML PREMIX IV (09:23)
[2021-10-12] MEDS: atorvastatin 40 mg Tablet 80 MG PO (17:44)
[2021-10-12] MEDS: FUROsemide 10 mg/mL SDV 2mL 20 MG IVP (18:58)
[2021-10-12] MEDS: acetaminophen 500 mg Tablet PO (20:18)
[2021-10-13] VITALS (8 sets, daily range): BP systolic 111–147; BP diastolic 72–80; PULSE 74–102; RESP 12–20; TEMP 36.6–37.6; O2SAT 91–98
[2021-10-13 04:16] LABS: Basophils % 0.2 %; Eosinophils # 0.7 10^3/uL (0.0-0.8); Eosinophils % 3.3 %; Hematocrit 33.5 % (37.0-47.0); Lymphocytes # 2.4 10^3/uL (0.8-4.8); Lymphocytes % 12.2 %; Mean Corpuscular HGB Conc 32.8 g/dL (30.0-36.0); Mean Corpuscular Hemoglobin 31.8 pg (28.0-34.0); Mean Corpuscular Volume 96.8 fl (81-99); Mean Platelet Volume 10.8 fL (7.4-10.4); Monocytes # 0.8 10^3/uL (0.2-0.9); Monocytes % 3.8 %; Neutrophils # 15.88 10^3/uL (1.8-7.7); Neutrophils % 79.6 %; Nucleated Red Blood Cells % 0 %; Platelet Count 380 10^3/cmm (130-400); Red Blood Count 3.46 10^6/uL (4.1-5.3); Red Cell Distribution Width 15.2 % (12.1-15.1); White Blood Count 19.9 10^3/uL (4.0-10.0)
[2021-10-13 04:34] LABS: Anion Gap 14.5 (5-19); Blood Urea Nitrogen 11 mg/dL (8-23); Calcium 8.6 mg/dL (8.5-10.5); Carbon Dioxide 31 mmol/L (22-29); Chloride 102 mmol/L (98-107); Glucose 119 mg/dL (65-115); Osmolality Calculated 299 mOsm/kg (285-295); Potassium 3.5 mmol/L (3.5-5.1); Sodium 144 mmol/L (136-145)
[2021-10-13] MEDS: apixaban 5 mg Tablet PO ×2 (09:59→17:36)
[2021-10-13] MEDS: fluoxetine 20 mg Capsule PO (09:59)
[2021-10-13] MEDS: carvedilol 6.25 mg Tablet PO ×2 (09:59→17:36)
[2021-10-13] MEDS: pantoprazole DR 40 mg Tablet PO ×2 (10:00→19:39)
[2021-10-13] MEDS: dilTIAZem ER (24HR) 240 mg Capsule PO (10:00)
--- NOTE | 2021-10-13 10:06 | PC.SOCIAL ---
IMM Updated pt on IMM. No questions voiced. Provided pt a copy. Initialed, dated, & timed copy in chart.
--- NOTE | 2021-10-13 12:46 | P.PN_ITS ---
Subjective Subjective: Leukocytosis trending down No fever Currently patient was on room air saturating a 89% Heart rate 103 Irregular rhythm For bowel movement yesterday Urine color improved Electrolyte improved Vitals/I&O/Wt Last Vital Signs Temp 98.6 F 10/13/21 12:00 Pulse 102 H 10/13/21 12:00 Resp 18 10/13/21 12:00 BP 147/72 10/13/21 12:00 Pulse Ox 94 10/13/21 12:00 10/12/21 10/13/21 10/13/21 22:59 06:59 14:59 Intake Total 765 / 1565 300 / 1865 Output Total 825 / 825 2100 / 2925 Balance -60 / 740 -1800 / -1060 Weight last 48 hrs Weight 55.565 kg Physical Exam Narrative: Patient did not endorse Active chest pain or shortness of breath Currently on room air saturating 89% No new focal deficit Abdomen is soft Bilateral breath sound with rhonchi at the base of the lung on the right side Patient does make eye contact No new focal deficit Morton catheter showing yellow-colored urine no signs of hematuria Urinary Catheter Management: Morton: Cath Placed During This Visit: yes Reason for Continuing Indwelling Catheter: Acute Urinary Retention or Obstruction Urinary Catheter Date of Insertion: 10/09/21 Urinary Catheter Time of Insertion: 14:55 Data : 10/13/21 02:53 10/13/21 02:53 A&P Assessment and plan (1) Aspiration pneumonia: Status: Acute (2) Pacemaker: Status: Acute (3) C. difficile diarrhea: Status: Acute (4) Recurrent UTI: Status: Acute Plan Cdiff diarrhea: Resolving continue p.o. vancomycin for 10 days Acute hypoxia with aspiration pneumonia Wean off to room air currently 89% Continue broad-spectrum antibiotics imipenem for now Leukocytosis trending down Afebrile She was given 1 dose of IV Lasix yesterday Recent CVA History of dementia and depression Mitral valve thrombus: Continue Eliquis A. fib: Pacemaker hydration unremarkable continue p.o. AV arleth blocking agents Hematuria: Improved Plan to discharge her back to [facility] in next 48 hours Attestations Medical Necessity Statement*: Discharge in next 48 hours Time Spent in Patient Care: 20 Coding Level of Care Code Acute Organ Pipe Maker Metal for [facility] Diagnoses Aspiration pneumonia J69.0 Pacemaker Z95.0 C. difficile diarrhea A04.72 Recurrent UTI N39.0
[2021-10-13] MEDS: magnesium oxide 400 mg tablet PO (17:36)
[2021-10-13] MEDS: atorvastatin 40 mg Tablet 80 MG PO (17:36)
[2021-10-14] VITALS (14 sets, daily range): BP systolic 100–152; BP diastolic 61–86; PULSE 65–135; RESP 12–20; TEMP 36.5–37.2; O2SAT 92–97
[2021-10-14 04:00] LABS: Basophils % 0.3 %; Eosinophils # 0.7 10^3/uL (0.0-0.8); Eosinophils % 4.6 %; Hematocrit 30.5 % (37.0-47.0); Hemoglobin 9.9 g/dL (11.5-15.3); Lymphocytes # 1.6 10^3/uL (0.8-4.8); Lymphocytes % 10.6 %; Mean Corpuscular HGB Conc 32.5 g/dL (30.0-36.0); Mean Corpuscular Hemoglobin 31.3 pg (28.0-34.0); Mean Corpuscular Volume 96.5 fl (81-99); Mean Platelet Volume 10.5 fL (7.4-10.4); Monocytes # 0.5 10^3/uL (0.2-0.9); Monocytes % 3.6 %; Neutrophils % 80.2 %; Nucleated Red Blood Cells % 0 %; Platelet Count 340 10^3/cmm (130-400); Red Blood Count 3.16 10^6/uL (4.1-5.3); White Blood Count 14.8 10^3/uL (4.0-10.0)
[2021-10-14 04:30] LABS: Anion Gap 8.4 (5-19); Blood Urea Nitrogen 9 mg/dL (8-23); Calcium 8.3 mg/dL (8.5-10.5); Carbon Dioxide 33 mmol/L (22-29); Chloride 102 mmol/L (98-107); Glucose 96 mg/dL (65-115); Osmolality Calculated 289 mOsm/kg (285-295); Potassium 3.4 mmol/L (3.5-5.1); Sodium 140 mmol/L (136-145)
[2021-10-14] MEDS: pantoprazole DR 40 mg Tablet PO ×2 (08:30→20:53)
[2021-10-14] MEDS: magnesium oxide 400 mg tablet PO ×2 (08:30→18:09)
[2021-10-14] MEDS: fluoxetine 20 mg Capsule PO (08:30)
[2021-10-14] MEDS: apixaban 5 mg Tablet PO ×2 (08:30→18:09)
[2021-10-14] MEDS: dilTIAZem ER (24HR) 240 mg Capsule PO (08:30)
[2021-10-14] MEDS: carvedilol 6.25 mg Tablet PO ×2 (08:30→18:09)
--- NOTE | 2021-10-14 13:45 | P.PN_ITS ---
Subjective Subjective: Patient is clinically getting better, leukocytosis trending down, no active profuse diarrhea Afebrile She might be able to return to [place] on Friday Home O2 eval Vitals/I&O/Wt Last Vital Signs Temp 98.1 F 10/14/21 11:50 Pulse 71 10/14/21 11:50 Resp 16 10/14/21 11:50 BP 113/75 10/14/21 11:50 Pulse Ox 94 10/14/21 11:50 10/13/21 10/14/21 10/14/21 22:59 06:59 14:59 Intake Total 260 / 420 700 / 1120 340 / 340 Output Total 775 / 775 Balance 260 / 420 -75 / 345 340 / 340 Weight last 48 hrs Weight 56.841 kg Physical Exam Narrative: Left-sided hemiplegia No new focal deficit Currently on 2 L nasal cannula S1, S2 variable Abdomen soft No signs of edema Awake and alert Able to answer my questions appropriately Urinary Catheter Management: Morton: Cath Placed During This Visit: yes Reason for Continuing Indwelling Catheter: Acute Urinary Retention or Obstruction Urinary Catheter Date of Insertion: 10/09/21 Urinary Catheter Time of Insertion: 14:55 Data : 10/14/21 03:23 10/14/21 03:23 A&P Assessment and plan (1) Aspiration pneumonia: Status: Acute (2) Pacemaker: Status: Acute (3) C. difficile diarrhea: Status: Acute (4) Chronic anticoagulation: Status: Acute (5) Gross hematuria: Status: Acute (6) H/O prosthetic mitral valve: Status: Acute (7) Recurrent UTI: Status: Acute Plan I am planning to continue her broad-spectrum antibiotics for now, I will be able to discharge her tomorrow back to [facility] She might need 2 L of oxygen at discharge Leukocytosis trending down She will finish 10 days of p.o. vancomycin for C. 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 difficile diarrhea A04.72 Chronic anticoagulation Z79.01 Gross hematuria R31.0 H/O prosthetic mitral valve Z95.2 Recurrent UTI N39.0
[2021-10-14] MEDS: ipratropium-albuterol 3 mL Neb INHALATION (14:34)
[2021-10-14] MEDS: acetaminophen 500 mg Tablet PO (15:24)
[2021-10-14] MEDS: atorvastatin 40 mg Tablet 80 MG PO (18:09)
[2021-10-14 20:27] LABS: Adenovirus Not Detected (NOT DETECT); Chlamydia Pneumoniae Not Detected (NOT DETECT); Coronavirus 229E,HKU1,NL63,OC4 Not Detected (NOT DETECT); Human Metapneumovirus Not Detected (NOT DETECT); Human Rhinovirus/Enterovirus Detected (NOT DETECT); Influenza A Not Detected (NOT DETECT); Influenza A H1 Not Detected (NOT DETECT); Influenza A H1-2009 Not Detected (NOT DETECT); Influenza A H3 Not Detected (NOT DETECT); Influenza B Not Detected (NOT DETECT); Mycoplasma Pneumoniae Not Detected (NOT DETECT); Parainfluenza Virus Type 1 Not Detected (NOT DETECT); Parainfluenza Virus Type 2 Not Detected (NOT DETECT); Parainfluenza Virus Type 3 Not Detected (NOT DETECT); Parainfluenza Virus Type 4 Not Detected (NOT DETECT); Respiratory Syncytial Virus A Not Detected (NOT DETECT); Respiratory Syncytial Virus B Not Detected (NOT DETECT); SARS-COV-2 Not Detected (NOT DETECT)
[2021-10-15 03:41] LABS: Basophils % 0.4 %; Eosinophils # 0.4 10^3/uL (0.0-0.8); Hematocrit 30.8 % (37.0-47.0); Hemoglobin 9.9 g/dL (11.5-15.3); Lymphocytes # 2.2 10^3/uL (0.8-4.8); Lymphocytes % 21.7 %; Mean Corpuscular HGB Conc 32.1 g/dL (30.0-36.0); Mean Corpuscular Hemoglobin 31.4 pg (28.0-34.0); Mean Corpuscular Volume 97.8 fl (81-99); Mean Platelet Volume 10.9 fL (7.4-10.4); Monocytes # 0.4 10^3/uL (0.2-0.9); Monocytes % 4.1 %; Neutrophils # 7.13 10^3/uL (1.8-7.7); Neutrophils % 69.3 %; Nucleated Red Blood Cells % 0 %; Platelet Count 386 10^3/cmm (130-400); Red Blood Count 3.15 10^6/uL (4.1-5.3); Red Cell Distribution Width 15.1 % (12.1-15.1); White Blood Count 10.3 10^3/uL (4.0-10.0)
[2021-10-15 04:00] VITALS: BP 122/54; PULSE 118; RESP 16; TEMP 36.4; O2SAT 94
[2021-10-15 08:00] VITALS: BP 126/85; PULSE 126; PULSE 140; RESP 20; O2SAT 94; O2SAT 95
[2021-10-15] MEDS: apixaban 5 mg Tablet PO (08:10)
[2021-10-15] MEDS: carvedilol 6.25 mg Tablet PO (08:10)
[2021-10-15] MEDS: fluoxetine 20 mg Capsule PO (08:10)
[2021-10-15] MEDS: magnesium oxide 400 mg tablet PO (08:10)
[2021-10-15] MEDS: pantoprazole DR 40 mg Tablet PO (08:10)
[2021-10-15] MEDS: dilTIAZem ER (24HR) 240 mg Capsule PO (08:10)
--- NOTE | 2021-10-15 10:27 | PC.SOCIAL ---
IMM UPDATED IMM dated and initialed and copy given to patient
--- NOTE | 2021-10-15 10:48 | P.DS_ITS ---
Discharge Providers Date of Admission: 10/08/21 17:17 Date of Discharge: October 15, 2021 Attending Provider at Admission: Freedom Robles MD Attending Provider at Discharge: Freedom Robles MD Primary Care Provider: Robin Marroquin DO Diagnoses at Discharge Discharge Diagnosis (1) Aspiration pneumonia: Status: Acute (2) Pacemaker: Status: Acute (3) C. 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 She also has history of A. fib, status post pacemaker placement, she was admitted for management of generalized weakness, lethargy, confusion, concern related to bradycardia. Currently see my H&P for further details. Her pacemaker interrogation was unremarkable. During her hospitalization she was diagnosed with C. difficile diarrhea, her electrolytes were replenished aggressively. Her mentation improved. She does have chronic UTIs, for ESBL she was treated with imipenem. She will finish 10 days of p.o. vancomycin. Most likely cause of C. difficile diarrhea is use of antibiotics at [facility]. She will go back to [facility]. Of note, she suffered from aspiration pneumonia during her hospitalization, her leukocytosis trending down with use of antibiotics. She remained afebrile. She finished antibiotic regimen during hospitalization I have not given her anaerobic coverage at the time of discharge. White count at the time of discharge 10.3. She is afebrile. Cultures remain negative to date. She was requiring 3 L of oxygen which was new. Oxygen requirement was related to aspiration pneumonia. Morton catheter removed before discharge. Physical Exam Narrative: Patient did not endorse Active chest pain or shortness of breath Requiring 2 to 3 L of nasal cannula oxygen supplementation No new focal deficit, left-sided hemiplegia, left-sided facial droop, Abdomen is soft Bilateral breath sound with rhonchi at the base of the lung on the right side Patient does make eye contact No new focal deficit, answer my questions appropriately Urinary Catheter Management: Morton: Cath Placed During This Visit: yes Reason for Continuing Indwelling Catheter: Acute Urinary Retention or Obstruction Urinary Catheter Date of Insertion: 10/09/21 Urinary Catheter Time of Insertion: 14:55 Discharge Data Studies Completed and Pending Completed Studies During Hospitalization Category Date Time Status CTA PE [CT angio chest PE protcl [id number]] Routine Cat Scan 10/09/21 12:10 Completed XR chest 1V portable [id number] Stat Exams 10/08/21 14:25 Completed XR chest 1V portable [id number] Stat Exams 10/09/21 05:18 Completed XR chest 1V portable [id number] Stat Exams 10/11/21 22:25 [place] [id number] Routine Ultrasound 10/09/21 12:10 Completed Radiology Impressions Chest CTA 10/09/21 12:10 IMPRESSION: 1. No acute PE. Somewhat limited exam due to artifacts. 2. At least 2 part solid nodular densities in both lungs, measuring up to 17 x 11 mm as described. Recommend CT Chest at 3-6 months. Subsequent management based on the most suspicious nodule(s). (Reference: Gelacio) 3. Additional other tiny nodular densities are present measuring 1-2 mm. No acute lung consolidation or large ground-glass opacities. 4. Mild nonspecific hilar adenopathy 5. Bilateral small pleural effusions. 6. Cardiac findings as above. No obvious vascular congestion. 7. Other nonacute findings as described. REFERENCES: Gelacio H, et al. Guidelines for Management of Incidental Pulmonary Nodules Detected on CT Images: From the Fleischner Society 2017. Radiology. 2017;284(1):228-243. Chest X-Ray 10/11/21 22:25 IMPRESSION: 1. Right hilar to lower lobe airspace infiltrate. 2. Right central venous catheter tip approaching the atrial caval junction. 3. Sternotomy wires. 4. Left-sided pacemaker. Laboratory Results WBC 10.3 10^3/uL (4.0-10.0) H 10/15/21 03:00 Corrected WBC Cancelled 10/09/21 02:42 RBC 3.15 10^6/uL (4.1-5.3) L 10/15/21 03:00 Hgb 9.9 g/dL (11.5-15.3) L 10/15/21 03:00 Hct 30.8 % (37.0-47.0) L 10/15/21 03:00 MCV 97.8 fl (81-99) 10/15/21 03:00 MCH 31.4 pg (28.0-34.0) 10/15/21 03:00 MCHC 32.1 g/dL (30.0-36.0) 10/15/21 03:00 RDW 15.1 % (12.1-15.1) 10/15/21 03:00 Plt Count 386 10^3/cmm (130-400) 10/15/21 03:00 MPV 10.9 fL (7.4-10.4) H 10/15/21 03:00 Gran % Cancelled 10/09/21 02:42 Neut % (Auto) 69.3 % 10/15/21 03:00 Lymph % (Auto) 21.7 % 10/15/21 03:00 [place] % (Auto) 4.1 % 10/15/21 03:00 Eos % (Auto) 4.0 % 10/15/21 03:00 Baso % (Auto) 0.4 % 10/15/21 03:00 Neut # (Auto) 7.13 10^3/uL (1.8-7.7) 10/15/21 03:00 Lymph # (Auto) 2.2 10^3/uL (0.8-4.8) 10/15/21 03:00 [place] # (Auto) 0.4 10^3/uL (0.2-0.9) 10/15/21 03:00 Eos # (Auto) 0.4 10^3/uL (0.0-0.8) 10/15/21 03:00 Baso # (Auto) 0.0 10^3/uL (0.0-0.1) 10/15/21 03:00 Absolute Gran (auto) Cancelled 10/09/21 02:42 Nucleated RBC % (auto) 0 % 10/15/21 03:00 Nucleated RBCs # 0.0 /100WBC 10/15/21 03:00 D-Dimer 1.15 ug/mIFEU (0-0.59) H 10/08/21 15:20 Sodium 140 mmol/L (136-145) 10/14/21 03:23 Potassium 3.4 mmol/L (3.5-5.1) L 10/14/21 03:23 Chloride 102 mmol/L (98-107) 10/14/21 03:23 Carbon Dioxide 33 mmol/L (22-29) H 10/14/21 03:23 Anion Gap 8.4 (5-19) 10/14/21 03:23 BUN 9 mg/dL (8-23) 10/14/21 03:23 Creatinine 0.5 mg/dL (0.5-0.9) 10/14/21 03:23 GFR Calculation Not Reportable 10/14/21 03:23 Glucose 96 mg/dL (65-115) 10/14/21 03:23 Calculated Osmolality 289 mOsm/kg (285-295) 10/14/21 03:23 Lactic Acid (Sepsis) 1.4 mmol/L (0.5-2.2) 10/09/21 08:55 Lactate Cancelled 10/09/21 02:42 Calcium 8.3 mg/dL (8.5-10.5) L 10/14/21 03:23 Magnesium 1.6 mg/dL (1.7-2.3) L 10/12/21 01:57 Total Bilirubin 0.4 mg/dL (0.15-1.2) 10/08/21 15:20 AST 25 U/L (0-32) 10/08/21 15:20 ALT 16 U/L (0-33) 10/08/21 15:20 Alkaline Phosphatase 107 IU/L (35-105) H 10/08/21 15:20 Troponin T Baseline 54 ng/L (0-10) H 10/08/21 15:20 C-Reactive Protein 44.9 mg/L (0.0-4.9) H 10/12/21 07:21 Total Protein 6.1 g/dL (6.6-8.7) L 10/08/21 15:20 Albumin 3.1 g/dL (3.5-5.2) L 10/08/21 15:20 Globulin 3.0 g/dL (1.3-4.6) 10/08/21 15:20 Lipase 20 U/L (13-60) 10/08/21 15:20 25-OH Vitamin D Total 36 ng/mL (30-100) 10/11/21 11:43 Procalcitonin 0.23 ng/mL (0-0.5) 10/12/21 07:21 Prolactin 15.92 ng/mL (4.8-23.3) 10/08/21 15:20 PTH Intact 100.6 pg/mL (15-65) H 10/11/21 11:43 Calcium (PTH Intact) 8.3 mg/dL (8.5-10.5) L 10/11/21 11:43 Urine Color Yellow (Yellow) 10/08/21 15:45 Urine Appearance Cloudy (CLEAR) 10/08/21 15:45 Urine pH 5 (5-7) 10/08/21 15:45 Ur Specific Ada 1.015 (1.005-1.030) 10/08/21 15:45 Urine Protein Trace (Negative) 10/08/21 15:45 Urine Glucose (UA) Norm (Normal) 10/08/21 15:45 Urine Ketones Negative (Negative) 10/08/21 15:45 Urine Blood 3+ (Negative) H 10/08/21 15:45 Urine Nitrate Negative (Negative) 10/08/21 15:45 Urine Bilirubin Neg (Negative) 10/08/21 15:45 Urine Urobilinogen Norm mg/dL (Negative) 10/08/21 15:45 Ur Leukocyte Esterase 2+ (Negative) H 10/08/21 15:45 Urine RBC Too numerous to cnt /hpf (0-2) H 10/08/21 15:45 Urine WBC >100 /hpf (0-5) H 10/08/21 15:45 Ur Squamous Epith Cells 0-4 /hpf (0-5) H 10/08/21 15:45 Amorphous Sediment Not Reportable 10/08/21 15:45 Urine Bacteria 3+ /hpf (NONE) H 10/08/21 15:45 Coarse Granular Casts 0-4 /lpf H 10/08/21 15:45 Other Casts Wbc cast /lpf 10/08/21 15:45 Nasal Influ A H1 2009 PCR Not detected (NOT DETECT) 10/14/21 15:00 Adenovirus (PCR) Not detected (NOT DETECT) 10/14/21 15:00 C. pneumoniae DNA (PCR) Not detected (NOT DETECT) 10/14/21 15:00 Coronavirus 229E (PCR) Not detected (NOT DETECT) 10/14/21 15:00 Human Metapneumovir PCR Not detected (NOT DETECT) 10/14/21 15:00 Influenza A (H1) PCR Not detected (NOT DETECT) 10/14/21 15:00 Influenza A (H3) PCR Not detected (NOT DETECT) 10/14/21 15:00 Influenza Type A (PCR) Not detected (NOT DETECT) 10/14/21 15:00 Influenza Type B (PCR) Not detected (NOT DETECT) 10/14/21 15:00 M. pneumoniae (PCR) Not detected (NOT DETECT) 10/14/21 15:00 Parainfluenza 1 (PCR) Not detected (NOT DETECT) 10/14/21 15:00 Parainfluenza 2 (PCR) Not detected (NOT DETECT) 10/14/21 15:00 Parainfluenza 3 (PCR) Not detected (NOT DETECT) 10/14/21 15:00 Parainfluenza 4 (PCR) Not detected (NOT DETECT) 10/14/21 15:00 RSV Type A (PCR) Not detected (NOT DETECT) 10/14/21 15:00 RSV Type B (PCR) Not detected (NOT DETECT) 10/14/21 15:00 Entero/Rhino (PCR) Detected (NOT DETECT) A 10/14/21 15:00 SARS-CoV-2 (PCR) Not detected (NOT DETECT) 10/14/21 15:00 Vitals Last Vital Signs Temp 97.5 F L 10/15/21 04:00 Pulse 140 H 10/15/21 08:00 Resp 20 H 10/15/21 08:00 BP 126/85 10/15/21 08:00 Pulse Ox 94 10/15/21 08:00 Discharge Plan Discharge Patient Disposition: Xfer SNF Condition: Stable Prescriptions: New vancomycin 1,000 mg Recon Soln 125 mg PO QID Qty: 12 0RF Magnesium Oxide [Magox] 400 mg PO BID Qty: 10 0RF potassium chloride 10 mEq tablet extended release 10 meq PO DAILY Qty: 10 0RF Calcium 500 500 mg calcium (1,250 mg) tablet,chewable 500 mg PO DAILY Qty: 30 0RF Continued acetaminophen 325 mg capsule 325 mg PO DAILY PRN (Reason: Pain) 0RF sennosides [senna] 8.6 mg tablet 17.2 mg PO BID@0800,1999 PRN (Reason: Constipation) 0RF albuterol sulfate [ProAir HFA] 90 mcg/actuation HFA aerosol inhaler 2 puff INHALATION Q6H PRN (Reason: shortness of breath or wheezing) Qty: 6.7 0RF diltiazem HCl 240 mg capsule,extended release 24hr 240 mg PO DAILY 0RF cyanocobalamin (vitamin B-12) [Vitamin B-12] 1,000 mcg Tablet 1,000 mcg PO DAILY@0800 0RF cholecalciferol (vitamin D3) [Vitamin D3] 25 mcg (1,000 unit) Tablet 25 mcg PO DAILY@0800 0RF pantoprazole 40 mg tablet,delayed release (DR/EC) 40 mg PO BID@0800,1999 0RF atorvastatin 80 mg Tablet 80 mg PO QPM 0RF carvedilol 6.25 mg Tablet 6.25 mg PO BID 0RF Rx Instructions: must administer with a meal/food fluoxetine 10 mg Tablet 20 mg PO DAILY 0RF Ativan 0.5 mg Tablet 0.5 mg PO DAILY PRN (Reason: Anxiety) 0RF ondansetron 4 mg Tablet,Disintegrating 4 mg PO Q6H 0RF mirtazapine 7.5 mg Tablet 7.5 mg PO DAILY 0RF ramelteon 8 mg Tablet 8 mg PO QPM 0RF Multi Vitamin 9 mg iron/15 mL Liquid 9 ml PO DAILY 0RF apixaban 5 mg Tablet 5 mg PO BID 0RF Held polyethylene glycol 3350 [Miralax] 17 gram/dose powder 17 gm PO DAILY@0800 0RF Hold Instructions: Resume on 11/05/21. hydrochlorothiazide 12.5 mg Tablet 12.5 mg PO DAILY 0RF Hold Instructions: Resume on 11/05/21. Discharge Orders: Discharge Order (Routine); Ordered 10/15/21 Ordered By: Freedom Robles Referrals: Robin Marroquin DO [Primary Care Provider] - 7-10 days Discharge Diet: As Directed Discharge Attestations Time Spent in Discharge Care*: less than 30 min Quality Metrics Clinical Quality Measures [ No reported AMI, CVA or VTE this stay] Coding Level of Care Code Acute Chg [facility] note Diagnoses Aspiration pneumonia J69.0 Pacemaker Z95.0 C. difficile diarrhea A04.72 Chronic anticoagulation Z79.01 Gross hematuria R31.0 H/O prosthetic mitral valve Z95.2 Recurrent UTI N39.0
--- NOTE | 2021-10-15 11:39 | PC.NURSE ---
report called to Daniela BRYANT at [facility].
[2021-10-15 12:00] VITALS: RESP 18; TEMP 36.9; O2SAT 96
[2021-10-15 16:00] VITALS: BP 97/63; PULSE 73; RESP 18; TEMP 37.1; O2SAT 96
[2021-10-15 16:22] VITALS: BP 130/85; PULSE 80; RESP 18; TEMP 36.9; O2SAT 96
== END 2021-10-15 15:15 | disposition skilled nursing facility (03) | DRG 308 ==
LOC: ER 17:21 → ICU 17:42 → MEDSURG 10-10 17:19
PROVIDERS: Admitting Provider Internal Medicine; Emergency Provider Emergency Medicine; PCP Internal Medicine; Visit Provider Internal Medicine
DX: I48.0 Paroxysmal atrial fibrillation (principal); J69.0 Pneumonitis due to inhalation of food and vomit; I69.954 Hemiplegia and hemiparesis following unspecified cerebrovascular disease affecting left non-dominant side; N39.0 Urinary tract infection, site not specified; F05 Delirium due to known physiological condition; I69.991 Dysphagia following unspecified cerebrovascular disease; R13.10 Dysphagia, unspecified; F41.9 Anxiety disorder, unspecified; K21.9 Gastro-esophageal reflux disease without esophagitis; E78.00 Pure hypercholesterolemia, unspecified; Z87.440 Personal history of urinary (tract) infections; Z95.3 Presence of xenogenic heart valve; Z95.0 Presence of cardiac pacemaker; I70.1 Atherosclerosis of renal artery; N18.30 Chronic kidney disease, stage 3 unspecified; F03.90 Unspecified dementia, unspecified severity, without behavioral disturbance, psychotic disturbance, mood disturbance, and anxiety; B96.89 Other specified bacterial agents as the cause of diseases classified elsewhere; N20.9 Urinary calculus, unspecified; R31.29 Other microscopic hematuria; Z79.01 Long term (current) use of anticoagulants; E83.42 Hypomagnesemia; E87.6 Hypokalemia; M79.89 Other specified soft tissue disorders; I95.89 Other hypotension; E86.0 Dehydration; I25.10 Atherosclerotic heart disease of native coronary artery without angina pectoris
CPT/HCPCS: 31624; 36415; 36569; 36592; 51701; 51702; 71045; 71250; 71275; 80048; 80053; 80503; 81001; 82306; 82310; 83605; 83690; 83735; 83880; 83970; 84145; 84146; 84443; 84484; 85025; 85378; 86140; 87040; 87070; 87077; 87086; 87150; 87186; 87205; 87426; 87486; 87493; 87581; 87633; 87641; 88108; 88305; 89050; 92523; 92526; 92610; 93005; 93306; 93970; 94640; 94664; 94669; 96365; 96366; 96367; 96372; 96375; 99291; C1751; C9113; J0153; J0330; J0610; J0696; J0743; J1160; J1200; J1650; J1940; J2020; J2060; J2250; J2405; J2704; J2930; J3370; J3475; J3480; J3490; J7030; J7608; Q9967; S0030

== ENCOUNTER 2021-10-17 09:32 | Inpatient (IN) | payer MEDICARE, MEDICAID, SELFPAY ==
[2021-10-17] VITALS (13 sets, daily range): BP systolic 85–148; BP diastolic 62–96; PULSE 87–166; RESP 17–23; TEMP 36.4; O2SAT 84–96; BMI 29.2
--- NOTE | 2021-10-17 09:39 | ECG_ITS ---
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 Measurements Intervals [place] Rate: 164 P: DC: QRS: 66 QRSD: 88 T: 267 QT: 249 QTc: 412 Interpretive Statements ATRIAL FLUTTER/TACHYCARDIA WITH RAPID VENTRICULAR RESPONSE MARKED ST DEPRESSION, CONSIDER SUBENDOCARDIAL INJURY [0.2+ mV ST DEPRESSION] ACUTE MD Compared to ECG 10/08/2021 20:19:17 ST (T wave) deviation now present Ventricular-paced complex(es) or rhythm no longer present T-wave abnormality no longer present Electronically Signed On 10-17-2021 20:13:31 CDT by Netta Floyd M.D. [id number]
--- NOTE | 2021-10-17 09:39 | XR_ITS ---
WS: [id number] Exam: XR chest 1V portable [id number] Date/Time of Exam: 10/17/2021 9:39 AM Reason For Exam: dyspnea/cough Comparison 10/11/2021. Interstitial and airspace infiltrates are now noted throughout both lungs. This may represent pneumon ia or pulmonary edema. Moderate size right pleural effusion has developed. Mild cardiac enlargement. Signs of cardiac valve replacement and median sternotomy. No pneumothorax. Small left-sided pleural e ffusion. An ICD superimposes the left chest. Bony structures are intact. The mediastinum is not widen ed. XR/XR chest 1V portable [id number] IMPRESSION: 1. Interstitial and airspace infiltrates throughout both lungs that may represe nt pneumonia or pulmonary edema. 2. Development of bilateral pleural effusions most marked on the right. Mild ca rdiac enlargement.
--- NOTE | 2021-10-17 09:47 | W.ED.SOB ---
HPI - SOB/Dyspnea General: Chief Complaint: Upper Respiratory Infection Stated Complaint: RESP DISTRESS Time Seen by Provider: 10/17/21 09:34 Source: patient Mode of arrival: ambulatory Limitations: no limitations History of Present Illness: HPI Narrative: 72-year-old female presents emergency room from residential. She is not able to get any meaningful history. She was recently hospitalized with ACDF she is went back to the residential she began having difficulty will receive to be in respiratory distress so EMS evaluated she was in A. fib with RVR. In route to give nebulizer treatment they reported that she had converted back and her rate was controlled however on arrival here her rate was back up in the 160s and 70s. She is complaining of feeling like she cannot breathe with leg No Doubt is somewhat improved by elevating the head of the bed MD elicited complaint: shortness of breath Pertinent past history: other (Atrial fibrillation) Onset (ago): unknown Context: recent illness (C. difficile) Severity: moderate Exacerbating factors: lying flat Relieving factors: oxygen Known history of: other (Atrial fibrillation) Associated symptoms: Deny cough Treatment prior to arrival: bronchodilator Review of Systems General: Reports: ROS unobtainable due to mental status PFSH ED PFSH: Medical History Acute UTI Anxiety Atrial fibrillation C. difficile diarrhea CAD (coronary artery disease) Chronic anticoagulation Constipation Diverticulosis Dysphagia Dysphagia Dysrhythmia GERD (gastroesophageal reflux disease) Gross hematuria H/O: CVA (cerebrovascular accident) Hypercholesterolemia Hypertension Other microscopic hematuria Pacemaker Recurrent UTI Renal artery stenosis Urolithiasis Weakness due to cerebrovascular accident Surgical History H/O colonoscopy yrs ago H/O esophagogastroduodenoscopy never had one H/O mitral valve replacement H/O prosthetic mitral valve History of appendectomy History of hysterectomy History of renal stent History of tonsillectomy Family History Brother Cancer Hyperlipidemia Father Heart disease Stroke Sister Bleeding disorder hemorrhaged Other CAD (coronary artery disease) Hypertension Denies family history of Anesthesia complication Social History Smoking and tobacco status: never smoked Alcohol intake: never Lives independently: No Household members: spouse Housing: House Marital status: Current occupational status: disabled Current gender identity: Female Physical Exam Const: GENERAL APPEARANCE: cooperative ORIENTATION/CONSCIOUSNESS: Yes awake HENMT: COMMON NORMALS: normocephalic and atraumatic HEAD & SCALP: normocephalic and atraumatic Resp: COMMON NORMALS: normal respiratory effort, No retractions, No use of accessory muscles and clear to auscultation bilaterally AUSCULTATION: clear to auscultation bilaterally Cardio: RATE: tachycardic RHYTHM: abnormal rhythm irregularly irregular GI: COMMON NORMALS: Soft to palpation and No hepatosplenomegaly present AUSCULTATION: Yes normoactive bowel sounds PALPATION: Yes Soft to palpation, No Tenderness to palpation present (GI), No Guarding due to palpation present (GI) and Yes No hepatosplenomegaly present Extremity: COMMON NORMALS: normal to inspection, capillary refill normal, no clubbing, cyanosis or edema, no calf tenderness and no pedal edema Skin: COMMON NORMALS: no rashes or lesions noted GENERAL SKIN EXAM: no rashes or lesions noted Course Vital Signs: Vital signs: Vital Signs Temperature 97.9 F 10/22/21 08:00 Pulse Rate 66 10/22/21 16:53 Respiratory Rate 20 H 10/22/21 16:53 Blood Pressure 109/75 10/22/21 08:00 Pulse Oximetry 94 10/22/21 16:53 MDM - SOB/Dyspnea Medical Decision Making Patient presented in A. fib with RVR. When she first arrived her rate was controlled in the 80s however had strips from the field where she was in atrial fibrillation. Was have some difficulty breathing she returned back and atrial fibrillation was started on esmolol and because her blood pressure to drop she became hypotensive and we stopped the esmolol. Shortly after that she went back into a controlled rate. A time later patient went into SVT she was given 6 mg and then 12 mg of adenosine neither of which showed any improvement she was then cardioverted this also failed to get her back into a sinus rhythm. Restarted the esmolol and she converted back into a sinus rhythm. Will admit patient for these various arrhythmias rate control and cardiac evaluation discussed with hospitalist. Medical Records I reviewed the patient's medical records. Lab Data I reviewed the patient's lab results. : 10/21/21 06:00 10/22/21 03:08 Labs/Radiology: Radiology Impressions Chest CT 10/18/21 11:20 IMPRESSION: 1. Moderate to large bilateral pleural effusions. 2. Compressive atelectasis in both lungs. Extensive atelectasis in the left upper and lower lobes is likely both compressive and postobstructive. Pneumonitis is not excluded. 3. Mucus secretions in the trachea and left main bronchus. 4. Mediastinal lymphadenopathy. 5. Cardiomegaly. 6. Additional nonacute findings, as above. Chest X-Ray 10/20/21 04:00 IMPRESSION: 1. COPD, interstitial disease, chronic granulomatous disease, and asymmetric airspace disease. 2. Left pleural effusion with obscuration of the left hemidiaphragm. Laboratory Results WBC 16.2 10^3/uL (4.0-10.0) H 10/17/21 10:35 RBC 3.75 10^6/uL (4.1-5.3) L 10/17/21 10:35 Hgb 11.9 g/dL (11.5-15.3) 10/17/21 10:35 Hct 37.6 % (37.0-47.0) 10/17/21 10:35 MCV 100.3 fl (81-99) H 10/17/21 10:35 MCH 31.7 pg (28.0-34.0) 10/17/21 10:35 MCHC 31.6 g/dL (30.0-36.0) 10/17/21 10:35 RDW 15.1 % (12.1-15.1) 10/17/21 10:35 Plt Count 484 10^3/cmm (130-400) H 10/17/21 10:35 MPV 10.3 fL (7.4-10.4) 10/17/21 10:35 Neut % (Auto) 81.5 % 10/17/21 10:35 Lymph % (Auto) 10.2 % 10/17/21 10:35 Ada % (Auto) 4.5 % 10/17/21 10:35 Eos % (Auto) 2.7 % 10/17/21 10:35 Baso % (Auto) 0.4 % 10/17/21 10:35 Neut # (Auto) 13.22 10^3/uL (1.8-7.7) H 10/17/21 10:35 Lymph # (Auto) 1.7 10^3/uL (0.8-4.8) 10/17/21 10:35 Ada # (Auto) 0.7 10^3/uL (0.2-0.9) 10/17/21 10:35 Eos # (Auto) 0.4 10^3/uL (0.0-0.8) 10/17/21 10:35 Baso # (Auto) 0.1 10^3/uL (0.0-0.1) 10/17/21 10:35 Nucleated RBC % (auto) 0 % 10/17/21 10:35 Nucleated RBCs # 0.0 /100WBC 10/17/21 10:35 Sodium 147 mmol/L (136-145) H 10/17/21 10:35 Potassium 4.1 mmol/L (3.5-5.1) 10/17/21 10:35 Chloride 106 mmol/L (98-107) 10/17/21 10:35 Carbon Dioxide 30 mmol/L (22-29) H 10/17/21 10:35 Anion Gap 15.1 (5-19) 10/17/21 10:35 BUN 16 mg/dL (8-23) 10/17/21 10:35 Creatinine 0.8 mg/dL (0.5-0.9) 10/17/21 10:35 GFR Calculation Not Reportable 10/17/21 10:35 Glucose 103 mg/dL (65-115) 10/17/21 10:35 Calculated Osmolality 305 mOsm/kg (285-295) H 10/17/21 10:35 Lactic Acid 2.0 mmol/L (0.5-2.2) 10/17/21 11:55 Calcium 9.2 mg/dL (8.5-10.5) 10/17/21 10:35 Total Bilirubin 0.6 mg/dL (0.15-1.2) 10/17/21 10:35 AST 15 U/L (0-32) 10/17/21 10:35 ALT 9 U/L (0-33) 10/17/21 10:35 Alkaline Phosphatase 112 IU/L (35-105) H 10/17/21 10:35 Troponin T Baseline 63 ng/L (0-10) H 10/17/21 10:35 Troponin T 120 Minute 70.12 ng/L (0-10) H 10/17/21 12:44 Delta Troponin T 7.12 ABS# (0-10) 10/17/21 12:44 NT-Pro-B Natriuret Pep 2738 pg/mL (0-450) H 10/17/21 10:35 Total Protein 7.0 g/dL (6.6-8.7) 10/17/21 10:35 Albumin 3.3 g/dL (3.5-5.2) L 10/17/21 10:35 Globulin 3.7 g/dL (1.3-4.6) 10/17/21 10:35 Procalcitonin 0.11 ng/mL (0-0.5) 10/17/21 10:35 TSH 0.41 uIU/mL (0.27-4.20) 10/17/21 10:35 TSH Cancelled 10/17/21 10:35 Urine Color Yellow (Yellow) 10/17/21 11:47 Urine Appearance Cloudy (CLEAR) 10/17/21 11:47 Urine pH 5 (5-7) 10/17/21 11:47 Ur Specific [place] 1.015 (1.005-1.030) 10/17/21 11:47 Urine Protein Trace (Negative) 10/17/21 11:47 Urine Glucose (UA) Norm (Normal) 10/17/21 11:47 Urine Ketones Negative (Negative) 10/17/21 11:47 Urine Blood 3+ (Negative) H 10/17/21 11:47 Urine Nitrate Negative (Negative) 10/17/21 11:47 Urine Bilirubin Neg (Negative) 10/17/21 11:47 Urine Urobilinogen Norm mg/dL (Negative) 10/17/21 11:47 Ur Leukocyte Esterase 1+ (Negative) H 10/17/21 11:47 Urine RBC 15-25 /hpf (0-2) H 10/17/21 11:47 Urine WBC 15-25 /hpf (0-5) H 10/17/21 11:47 Ur Squamous Epith Cells 0-4 /hpf (0-5) H 10/17/21 11:47 Amorphous Sediment Not Reportable 10/17/21 11:47 Urine Bacteria 2+ /hpf (NONE) H 10/17/21 11:47 Urine Yeast Trace /hpf 10/17/21 11:47 Discharge Plan Discharge Patient Disposition: Admitted As Inpatient Admit Provider: Anabell Hirsch Clinical Impression: Atrial fibrillation with rapid ventricular response, History of cardioversion, CVA (cerebral vascular accident) Condition: Stable Discharge Diet: As Directed Coding Level of Care Code ED Director And Professor for Chg Fwd Exam Detailed
[2021-10-17 11:01] LABS: Basophils # 0.1 10^3/uL (0.0-0.1); Basophils % 0.4 %; Eosinophils # 0.4 10^3/uL (0.0-0.8); Eosinophils % 2.7 %; Hematocrit 37.6 % (37.0-47.0); Hemoglobin 11.9 g/dL (11.5-15.3); Lymphocytes # 1.7 10^3/uL (0.8-4.8); Lymphocytes % 10.2 %; Mean Corpuscular HGB Conc 31.6 g/dL (30.0-36.0); Mean Corpuscular Hemoglobin 31.7 pg (28.0-34.0); Mean Corpuscular Volume 100.3 fl (81-99); Mean Platelet Volume 10.3 fL (7.4-10.4); Monocytes # 0.7 10^3/uL (0.2-0.9); Monocytes % 4.5 %; Neutrophils # 13.22 10^3/uL (1.8-7.7); Neutrophils % 81.5 %; Nucleated Red Blood Cells % 0 %; Platelet Count 484 10^3/cmm (130-400); Red Blood Count 3.75 10^6/uL (4.1-5.3); Red Cell Distribution Width 15.1 % (12.1-15.1); White Blood Count 16.2 10^3/uL (4.0-10.0)
[2021-10-17 11:22] LABS: Troponin(5th) Baseline 63 ng/L (0-10)
[2021-10-17 11:23] LABS: Alanine Aminotransferase 9 U/L (0-33); Albumin Level 3.3 g/dL (3.5-5.2); Alkaline Phosphatase 112 IU/L (35-105); Anion Gap 15.1 (5-19); Aspartate Amino Transferase 15 U/L (0-32); Blood Urea Nitrogen 16 mg/dL (8-23); Calcium 9.2 mg/dL (8.5-10.5); Carbon Dioxide 30 mmol/L (22-29); Chloride 106 mmol/L (98-107); Creatinine Clr Calc Pharmacy 49.5157; Globulin 3.7 g/dL (1.3-4.6); Glucose 103 mg/dL (65-115); Osmolality Calculated 305 mOsm/kg (285-295); Potassium 4.1 mmol/L (3.5-5.1); Sodium 147 mmol/L (136-145); Total Bilirubin 0.6 mg/dL (0.15-1.2)
--- NOTE | 2021-10-17 11:39 | ECG_ITS ---
[facility] Test Date: 2021-10-17 Pat Name: Freda Kline Department: Room: Gender: Female Civil Manager: : 1940 Requested By: Star Rushing Order Number: [id number] Yair MD: Netta Floyd M.D. Measurements Intervals [place] Rate: 157 P: [place]: QRS: 78 QRSD: 89 T: 268 QT: 289 QTc: 468 Interpretive Statements SUPRAVENTRICULAR TACHYCARDIA ST DEVIATION AND MODERATE T-WAVE ABNORMALITY, CONSIDER LATERAL ISCHEMIA [-0.1+ mV T-WAVE IN I/aVL/V5/V6] ST DEVIATION AND MODERATE T-WAVE ABNORMALITY, CONSIDER INFERIOR ISCHEMIA [-0.1+ mV T-WAVE IN II/aVF] CRITICAL TEST RESULT Compared to ECG 10/17/2021 11:52:03 T-wave abnormality now present Possible ischemia now present Atrial flutter no longer present ST (T wave) deviation no longer present Electronically Signed On 10-17-2021 20:20:08 CDT by Netta Floyd M.D. [id number]
[2021-10-17] MEDS: esmolol drip 2,500 MG/250 ML PREMIX 8.4 MG IV (12:02)
--- NOTE | 2021-10-17 12:08 | PC.NURSE ---
IV PLACED BY CHARITY Pearson RN,
[2021-10-17 12:45] LABS: Protein Urine Trace (Negative); Specific Gravity, Urine 1.015 (1.005-1.030); Urine Appearance Cloudy (CLEAR); Urine Color Yellow (Yellow); pH Urine 5 (5-7)
[2021-10-17 12:46] LABS: Add Urine Microscopic? YES; Bilirubin Urine Neg (Negative); Blood Urine 3+ (Negative); Glucose Urine UA Norm (Normal); Ketones Urine Negative (Negative); Leukocyte Esterase Urine 1+ (Negative); Nitrate Urine Negative (Negative); Urobilinogen Urine Norm (Negative)
[2021-10-17 12:47] LABS: Add Urine Culture? Yes; Bacteria Urine 2+ /hpf; RBC Urine 15-25 /hpf (0-2); Squamous Epithelial Cell Urine 0-4 /hpf (0-5); WBC Urine 15-25 /hpf (0-5)
[2021-10-17] MEDS: FUROsemide 10 mg/mL SDV 4mL 40 MG IVP ×2 (13:12→19:21)
--- NOTE | 2021-10-17 13:13 | PC.NURSE ---
CHARITY Pearson RN STARTED
[2021-10-17 13:49] LABS: Troponin 5 2HR 70.12 ng/L (0-10)
[2021-10-17 13:50] LABS: Troponin 5 2HR Delta 7.12 ABS# (0-10)
[2021-10-17] MEDS: midazolam 1 mg/mL INJ 5 ML 2 MG IV (13:57)
[2021-10-17] MEDS: adenosine 3 mg/mL SDV 2mL 6 MG (13:57)
[2021-10-17] MEDS: adenosine 3 mg/mL SDV 2mL 6 MG IVP (13:57)
[2021-10-17] MEDS: adenosine 3 mg/mL SDV 2mL 12 MG IVP (14:00)
[2021-10-17] MEDS: midazolam 1 mg/mL INJ 2 mL 2 MG (14:07)
--- NOTE | 2021-10-17 14:45 | ECG_ITS ---
[facility] Test Date: 2021-10-17 Pat Name: Freda Kline Department: Room: Gender: Female Product Marketing Analyst: : 1940 Requested By: Star Rushing Order Number: [id number] Yair MD: Netta Floyd M.D. Measurements Intervals [place] Rate: 165 P: MD: QRS: 71 QRSD: 94 T: 265 QT: 233 QTc: 387 Interpretive Statements SUPRAVENTRICULAR TACHYCARDIA MARKED ST DEPRESSION, CONSIDER SUBENDOCARDIAL INJURY [0.2+ mV ST DEPRESSION] ACUTE [place] Compared to ECG 10/17/2021 13:49:42 ST (T wave) deviation now present T-wave abnormality no longer present Possible ischemia no longer present Electronically Signed On 10-17-2021 20:16:08 CDT by Netta Floyd M.D. [id number]
--- NOTE | 2021-10-17 15:39 | ECG_ITS ---
[facility] Test Date: 2021-10-17 Pat Name: Freda Kline Department: Room: Gender: Female Science Technician: : 1940 Requested By: Star Rushing Order Number: [id number] Yair MD: Netta Floyd M.D. Measurements Intervals [place] Rate: 156 P: [place]: QRS: 76 QRSD: 92 T: 269 QT: 239 QTc: 386 Interpretive Statements ATRIAL FLUTTER/TACHYCARDIA WITH RAPID VENTRICULAR RESPONSE MARKED ST DEPRESSION, CONSIDER SUBENDOCARDIAL INJURY [0.2+ mV ST DEPRESSION] ACUTE [place] Compared to ECG 10/17/2021 14:07:07 Supraventricular tachycardia no longer present ST (T wave) deviation still present Electronically Signed On 10-17-2021 20:20:31 CDT by Netta Floyd M.D. [id number]
--- NOTE | 2021-10-17 16:06 | PC.NURSE ---
1357- 6 MG ADENOSINE GIVEN- PATIENT CONVERTED FOR A FEW SECONDS THEN BACK UP TO 183 1400- 12 MG ADENOSINE GIVEN- PATIENT CONVERTED FOR A FEW SECONDS THEN BACK UP TO 165 1404- PULSE 162- SHOCK ADMINISTERED AT 100J 1410- PULSE 140- SHOCK ADMINISTERED AT 150J 1411- PULSE 139- SHOCK ADMINISTERED AT 200J 1413- GTT RESTARTED
--- NOTE | 2021-10-17 16:07 | ECG_ITS ---
[facility] Test Date: 2021-10-17 Pat Name: Freda Kline Department: Room: Gender: Female Upholstery Handler: : 1940 Requested By: Star Rushing Order Number: [id number] Yair MD: Netta Floyd M.D. Measurements Intervals [place] Rate: 86 P: 71 [place]: 192 QRS: 80 QRSD: 99 T: 28 QT: 392 QTc: 469 Interpretive Statements SINUS RHYTHM NONSPECIFIC ST & T-WAVE ABNORMALITY Compared to ECG 10/17/2021 14:17:22 T-wave abnormality now present Atrial flutter no longer present ST (T wave) deviation no longer present Electronically Signed On 10-17-2021 20:16:16 CDT by Netta Floyd M.D. [id number]
--- NOTE | 2021-10-17 16:28 | PM.CONSULT ---
Providers/Reason For Consult Consulting Physician/Specialty*: Cardiovascular medicine Reason for Consult*: Atrial fibrillation, congestive heart failure Requesting Physician: Ezio Attending Physician: Hospitalist Primary Care Provider: Robin Marroquin DO History of Present Illness History of Present Illness Freda Kline is a 80 year old female who has a complex set of medical problems requiring frequent hospitalization. Several weeks ago she was at [facility]. We do not have those records. Apparently there was some concern about a left ventricular thrombus and she was placed on Eliquis. This information is from the narrative of her most recent hospitalization here. There is also information in his chart which suggest that they were concerned at [place] that she may have endocarditis on a prosthetic mitral valve. She was given antibiotics. After she left [place] and came back here she was hospitalized here for about a week having been discharged only 3 days ago. She had Clostridium difficile enterocolitis and an aspiration pneumonia. She has been at the intermediate for couple days. The intermediate called an ambulance today to bring her back here. She was short of breath. In the ambulance she was in atrial fibrillation. This lasted for short time and she converted back to sinus rhythm. Unfortunately, because of the shortness of breath, the prehospital personnel gave her some inhaled bronchodilators which only made her heart rate worse. She then went back into atrial fibrillation. Here in the emergency room she was given esmolol and the chest x-ray showed bilateral pleural effusions and congestive heart failure. The esmolol was turned off when her blood pressure dropped. She then spontaneously converted to sinus rhythm and then suddenly went into a narrow complex tachycardia. She was given adenosine 6 mg then 12 mg and ultimately converted back to sinus rhythm only after being given esmolol again. Since the last conversion she has remained in sinus rhythm. She had some ST changes on her EKG while in atrial fibrillation with a rapid rate but those have resolved. She has no known evidence of coronary disease. She is a complicated patient with a history of atrial fibrillation, in the last several months she has had a stroke which has left her with some residual difficulties. She is developed confusion and dementia. She will sundown at night. Her mitral valve replacement was due to rheumatic heart disease. At that time she had nonobstructive coronary disease. Other medical problems include hypertension, sick sinus syndrome, pacemaker, anxiety and depression, Eliquis anticoagulation, renal artery stenosis status post stent, dyslipidemia, dysphagia secondary to the stroke, diverticular disease and chronic kidney disease. She is perseverating crying out help me . She also tries to carry on a conversation but does not make much sense at times. Her 3 sons and her are in the room during my evaluation. Her first troponin is 63 and the second is 70. Her urinalysis suggests a urinary tract infection. Chest x-ray shows a right lower lobe pneumonia and bilateral pleural effusions and heart failure. EKG shows atrial fibrillation with a rapid rate and nonspecific ST and T wave changes. Review of Systems Narrative: Unavailable due to the patient's stroke and mental status Medications/Allergies Home Medications Medication Instructions Recorded Confirmed Last Taken Type acetaminophen 325 mg capsule 650 mg PO Q6H PRN 05/06/19 10/17/21 10/15/21 History polyethylene glycol 3350 17 17 gm PO DAILY@0800 05/06/19 10/17/21 10/17/21 History gram/dose oral powder (Miralax) sennosides 8.6 mg tablet (senna) 17.2 mg PO BID@799,1999 PRN 05/06/19 10/17/21 10/16/21 History albuterol sulfate 90 mcg/actuation 2 puff INHALATION Q6H PRN #6.7 gm 07/15/19 10/17/21 Unknown Rx aerosol inhaler (ProAir HFA) cyanocobalamin (vitamin B-12) 1,000 mcg PO DAILY@0800 08/22/20 10/17/21 10/16/21 History 1,000 mcg tablet (Vitamin B-12) pantoprazole 40 mg tablet,delayed 40 mg PO BID@0808/22/20 10/17/21 10/16/21 History release diltiazem HCl 240 mg 240 mg PO DAILY 11/23/20 10/17/21 10/16/21 History capsule,extended release 24 hr apixaban 5 mg tablet 5 mg PO BID 10/08/21 10/17/21 10/16/21 History atorvastatin 80 mg tablet 80 mg PO BEDTIME 10/08/21 10/17/21 10/16/21 History carvedilol 6.25 mg tablet 6.25 mg PO BID 10/08/21 10/17/21 10/16/21 History fluoxetine 10 mg tablet 20 mg PO DAILY 10/08/21 10/17/21 10/16/21 History hydrochlorothiazide 12.5 mg tablet 12.5 mg PO DAILY 10/08/21 10/17/21 10/16/21 History lorazepam 0.5 mg tablet (Ativan) 0.5 mg PO DAILY@0800 10/08/21 10/17/21 10/16/21 History mirtazapine 7.5 mg tablet 7.5 mg PO BEDTIME 10/08/21 10/17/21 10/16/21 History ondansetron 4 mg disintegrating 4 mg PO Q6H PRN 10/08/21 10/17/21 Unknown History tablet ramelteon 8 mg tablet 8 mg PO QPM 10/08/21 10/17/21 10/16/21 History Magnesium Oxide [Magox] 400 mg PO BID #10 tab 10/15/21 10/17/21 10/16/21 Rx calcium carbonate 500 mg calcium 500 mg PO DAILY #30 tab 10/15/21 10/17/21 10/16/21 Rx (1,250 mg) chewable tablet (Calcium 500) potassium chloride 10 mEq 10 meq PO DAILY #10 tab 10/15/21 10/17/21 10/16/21 Rx tablet,extended release vancomycin 1,000 mg intravenous 125 mg PO QID #12 ea 10/15/21 10/17/21 10/17/21 Rx injection cholecalciferol (vitamin D3) 125 125 mcg PO DAILY 10/17/21 10/17/21 10/16/21 History mcg (5,000 unit) tablet (Vitamin D3) lorazepam 0.5 mg tablet (Ativan) 0.5 mg PO BID PRN 10/17/21 10/17/21 Unknown History multivitamin 1 tab PO DAILY 10/17/21 10/17/21 10/16/21 History Allergies Allergy/AdvReac Type Severity Reaction Status Date / Time amoxicillin [From Amoxil] Allergy ALGY-Hives Verified 10/08/21 15:35 ciprofloxacin [From Cipro] Allergy rash Verified 10/08/21 15:35 nitrofurantoin Allergy ALGY-Rash Verified 10/08/21 15:35 [From Macrobid] Iodinated Contrast Media AdvReac Rapid Pulse Verified 10/08/21 15:35 propafenone [From Rythmol] AdvReac NDR-Nausea Verified 10/08/21 15:35 Current Medications Generic Name Dose Route Start Last Admin Trade Name Freq PRN Reason Stop Dose Admin Esmolol HCl 2,500 mg in 250 mls @ 0 mls/hr 10/17/21 09:45 10/17/21 14:13 Brevibloc Drip IV 25 mcg/kg/min .Q0M JOSE 8.4 mls/hr Titration Protocol Per Protocol PFSH Acute PFSH: Medical History (Updated 10/17/21 @ 16:38 by Erasmo Dowell MD) Acute UTI Anxiety Atrial fibrillation CAD (coronary artery disease) Chronic anticoagulation Constipation Diverticulosis Dysphagia Dysphagia Dysrhythmia GERD (gastroesophageal reflux disease) Gross hematuria H/O: CVA (cerebrovascular accident) Hypercholesterolemia Hypertension Other microscopic hematuria Pacemaker Recurrent UTI Renal artery stenosis Urolithiasis Weakness due to cerebrovascular accident Surgical History (Updated 10/17/21 @ 16:38 by Erasmo Dowell MD) H/O colonoscopy yrs ago H/O esophagogastroduodenoscopy never had one H/O mitral valve replacement H/O prosthetic mitral valve History of appendectomy History of hysterectomy History of renal stent History of tonsillectomy Family History Brother Cancer Hyperlipidemia Father Heart disease Stroke Sister Bleeding disorder hemorrhaged Other CAD (coronary artery disease) Hypertension Denies family history of Anesthesia complication Social History Smoking and tobacco status: never smoked Alcohol intake: never Lives independently: No Household members: spouse Housing: House Marital status: Current occupational status: disabled Current gender identity: Female Vitals/I&O/Wt Last Vital Signs Temp 97.6 F 10/17/21 09:45 Pulse 87 10/17/21 14:43 Resp 20 H 10/17/21 14:25 BP 148/85 10/17/21 14:43 Pulse Ox 94 10/17/21 14:43 10/17/21 10/17/21 10/17/21 06:59 14:59 22:59 Intake Total 3.92 / 3.92 Balance 3.92 / 3.92 Weight last 48 hrs Weight 125 lb Weight 165 lb Physical Exam Narrative: GENERAL: General she looks uncomfortable. She is on oxygen. Mildly short of breath at rest HEENT: Exam within normal limits. NECK: Supple without jugular vein distention. The carotid upstroke is normal without bruits. BACK: Exam normal. LUNGS: Clear. HEART: Regular rate and rhythm. ABDOMEN: Benign without organomegaly or tenderness. EXTREMITIES: No edema. NEUROLOGIC: Right-sided hemiplegia with slurred speech SKIN: Unremarkable. Data : 10/17/21 10:35 10/17/21 10:35 A&P Assessment and plan (1) C. difficile diarrhea: Status: Acute (2) Hypercholesterolemia: Status: Acute (3) Hypertension: Status: Acute (4) Renal artery stenosis: Status: Acute (5) H/O prosthetic mitral valve: Status: Acute (6) Pacemaker: Status: Acute (7) H/O: CVA (cerebrovascular accident): Status: Acute (8) Dysphagia: Status: Acute (9) Diverticulosis: Status: Acute (10) Chronic anticoagulation: Status: Acute (11) Atrial fibrillation: Status: Acute (12) Anxiety: Status: Acute (13) Acute UTI: Status: Acute Plan This is a difficult situation. She is clearly slowly but steadily going downhill. All of these medical problems have finally taken their toll on her. Her and her 3 sons are not quite ready to begin to let go. They are still interested in being aggressive. I have spent close to an hour with all 4 of them trying to educate them on her current state of affairs. Right now, I would not do anything more with respect to her rhythm. She remains in sinus rhythm. If she has any more atrial fibrillation, I would load her with intravenous amiodarone and then switch her over to p.o. amiodarone leaving her on that. She also needs some diuresis for the heart failure. I would not ton the troponins as this is demand ischemia related to the atrial fibrillation and heart failure and possible sepsis related to a urinary tract infection. She is seriously chronically ill and is on the verge of multiorgan failure. I would strongly suggest addressing her CODE STATUS during this hospitalization. Obviously her sons and her are going to need to be on board with this. Coding Level of Care Code Acute Rubber Molder for Peytonadalid Fwd History Comprehensive Exam Comprehensive Diagnoses C. difficile diarrhea A04.72 Hypercholesterolemia E78.00 Hypertension I10 Renal artery stenosis I70.1 H/O prosthetic mitral valve Z95.2 Pacemaker Z95.0 H/O: CVA (cerebrovascular accident) Z86.73 Dysphagia R13.10 Diverticulosis K57.90 Chronic anticoagulation Z79.01 Atrial fibrillation I48.91 Anxiety F41.9 Acute UTI N39.0
--- NOTE | 2021-10-17 18:02 | P.HP_ITS ---
Providers/Chief Complaint Primary Care Provider: Robin Marroquin DO Chief Complaint: RESP DISTRESS History of Present Illness Freda Kline is a 80 year old female with past medical history of LV thrombus, UTI, CAD, stroke, pacemaker, renal artery stenosis, recent admission for CHF discharged 2 days ago presented to the hospital today with complaint of high heart rate. She was brought in from the [place] [facility]. Patient was also s hort of breath. When she arrived at the ER she did convert to sinus rhythm but after having given inhaled bronchodilators she went back into A. fib. Esmolol was started in the ER which caused her blood pressure to drop. She subsequently converted to sinus rhythm and then went into SVT. He was given adenosine 6 mg then 12 mg and ultimately had to be cardioverted x3 and then she converted back to sinus rhythm. Since then patient has been in sinus rhythm. Spoke to family at bedside. They state that patient has an issue with sundowning around the evening time and they would like a medication to be given to her to help with that and advance. She is on fluoxetine, ramelteon, mirtazapine at night. When I interviewed the patient her [id number] was at bedside and her was present. I later went back to the room and her 3 sons were present and was present. At the time of my evaluation she was in sinus rhythm and denied being short of breath. She is unable to answer many questions and she was confused. Patient was given one-time dose of Primaxin in the ER. She is allergic to penicillin. Chart review: She does have a history of being at [facility] recently for management of left ventricular thrombus and then she was placed on Eliquis. This information is obtained from the chart. There was also question of endocarditis on her prosthetic mitral valve. She was given antibiotics. After she left [facility] she came back to [place] and ended up getting admitted for C. difficile colitis and aspiration pneumonia. She was discharged after being managed for the above 2 days prior and today she presents to the hospital again. At baseline she has had a stroke which has left her with some residual difficulties. She has a history of nonobstructive coronary artery disease, hypertension, sick sinus syndrome, pacemaker, anxiety, depression, bilateral shortness status post 10, dyslipidemia, dysphagia secondary to stroke, diverticular disease and chronic kidney disease. Medications/Allergies Home Medications Medication Instructions Recorded Confirmed Last Taken Type acetaminophen 325 mg capsule 650 mg PO Q6H PRN 05/06/19 10/17/21 10/15/21 History polyethylene glycol 3350 17 17 gm PO DAILY@0800 05/06/19 10/17/21 10/17/21 History gram/dose oral powder (Miralax) sennosides 8.6 mg tablet (senna) 17.2 mg PO BID@799,1999 PRN 05/06/19 10/17/21 10/16/21 History albuterol sulfate 90 mcg/actuation 2 puff INHALATION Q6H PRN #6.7 gm 07/15/19 10/17/21 Unknown Rx aerosol inhaler (ProAir HFA) cyanocobalamin (vitamin B-12) 1,000 mcg PO DAILY@0800 08/22/20 10/17/21 10/16/21 History 1,000 mcg tablet (Vitamin B-12) pantoprazole 40 mg tablet,delayed 40 mg PO BID@08/22/20 10/17/21 10/16/21 History release diltiazem HCl 240 mg 240 mg PO DAILY 11/23/20 10/17/21 10/16/21 History capsule,extended release 24 hr apixaban 5 mg tablet 5 mg PO BID 10/08/21 10/17/21 10/16/21 History atorvastatin 80 mg tablet 80 mg PO BEDTIME 10/08/21 10/17/21 10/16/21 History carvedilol 6.25 mg tablet 6.25 mg PO BID 10/08/21 10/17/21 10/16/21 History fluoxetine 10 mg tablet 20 mg PO DAILY 10/08/21 10/17/21 10/16/21 History hydrochlorothiazide 12.5 mg tablet 12.5 mg PO DAILY 10/08/21 10/17/21 10/16/21 History lorazepam 0.5 mg tablet (Ativan) 0.5 mg PO DAILY@0800 10/08/21 10/17/21 10/16/21 History mirtazapine 7.5 mg tablet 7.5 mg PO BEDTIME 10/08/21 10/17/21 10/16/21 History ondansetron 4 mg disintegrating 4 mg PO Q6H PRN 10/08/21 10/17/21 Unknown History tablet ramelteon 8 mg tablet 8 mg PO QPM 10/08/21 10/17/21 10/16/21 History Magnesium Oxide [Magox] 400 mg PO BID #10 tab 10/15/21 10/17/21 10/16/21 Rx calcium carbonate 500 mg calcium 500 mg PO DAILY #30 tab 10/15/21 10/17/21 10/16/21 Rx (1,250 mg) chewable tablet (Calcium 500) potassium chloride 10 mEq 10 meq PO DAILY #10 tab 10/15/21 10/17/21 10/16/21 Rx tablet,extended release vancomycin 1,000 mg intravenous 125 mg PO QID #12 ea 10/15/21 10/17/21 10/17/21 Rx injection cholecalciferol (vitamin D3) 125 125 mcg PO DAILY 10/17/21 10/17/21 10/16/21 History mcg (5,000 unit) tablet (Vitamin D3) lorazepam 0.5 mg tablet (Ativan) 0.5 mg PO BID PRN 10/17/21 10/17/21 Unknown History multivitamin 1 tab PO DAILY 10/17/21 10/17/21 10/16/21 History Allergies Allergy/AdvReac Type Severity Reaction Status Date / Time amoxicillin [From Amoxil] Allergy ALGY-Hives Verified 10/08/21 15:35 ciprofloxacin [From Cipro] Allergy rash Verified 10/08/21 15:35 nitrofurantoin Allergy ALGY-Rash Verified 10/08/21 15:35 [From Macrobid] Iodinated Contrast Media AdvReac Rapid Pulse Verified 10/08/21 15:35 propafenone [From Rythmol] AdvReac NDR-Nausea Verified 10/08/21 15:35 PFSH Acute PFSH: Medical History (Updated 10/17/21 @ 16:38 by Erasmo Dowell MD) Acute UTI Anxiety Atrial fibrillation CAD (coronary artery disease) Chronic anticoagulation Constipation Diverticulosis Dysphagia Dysphagia Dysrhythmia GERD (gastroesophageal reflux disease) Gross hematuria H/O: CVA (cerebrovascular accident) Hypercholesterolemia Hypertension Other microscopic hematuria Pacemaker Recurrent UTI Renal artery stenosis Urolithiasis Weakness due to cerebrovascular accident Surgical History (Updated 10/17/21 @ 16:38 by Erasmo Dowell MD) H/O colonoscopy yrs ago H/O esophagogastroduodenoscopy never had one H/O mitral valve replacement H/O prosthetic mitral valve History of appendectomy History of hysterectomy History of renal stent History of tonsillectomy Family History Brother Cancer Hyperlipidemia Father Heart disease Stroke Sister Bleeding disorder hemorrhaged Other CAD (coronary artery disease) Hypertension Denies family history of Anesthesia complication Social History Smoking and tobacco status: never smoked Alcohol intake: never Lives independently: No Household members: spouse Housing: House Marital status: Current occupational status: disabled Current gender identity: Female Vitals/I&O/Wt Last Vital Signs Temp 97.6 F 10/17/21 09:45 Pulse 87 10/17/21 14:43 Resp 20 H 10/17/21 14:25 BP 148/85 10/17/21 14:43 Pulse Ox 94 10/17/21 14:43 10/17/21 10/17/21 10/17/21 06:59 14:59 22:59 Intake Total 3.92 / 3.92 Balance 3.92 / 3.92 Weight last 48 hrs Weight 56.699 kg Weight 74.843 kg Physical Exam Narrative: General: Alert oriented x3, patient seen laying in bed on heated high flow. Speech is slightly slurred. HEENT: Normocephalic, atraumatic, EOMI, breathing on heated high flow, no acute respiratory distress, Cardio: Regular rate rhythm, normal S1-S2, in sinus rhythm at this time. Respiratory: Good bilateral air entry, no wheezes no rhonchi appreciated, clear to auscultation bilaterally with very mild crackles at bases GI: Abdomen soft, nontender, nondistended, bowel sounds + Extremities: No lower extremity edema present at this time, right-sided hemiplegia. Data : 10/17/21 10:35 10/17/21 10:35 A&P Assessment and plan (1) Renal artery stenosis: Status: Acute (2) H/O prosthetic mitral valve: Status: Acute (3) Pacemaker: Status: Acute (4) H/O: CVA (cerebrovascular accident): Status: Acute (5) Dysphagia: Status: Acute (6) Diverticulosis: Status: Acute (7) Chronic anticoagulation: Status: Acute (8) Atrial fibrillation: Status: Acute (9) Anxiety: Status: Acute (10) Acute UTI: Status: Acute (11) C. difficile diarrhea: Status: Acute (12) Hypercholesterolemia: Status: Acute (13) Hypertension: Status: Acute Plan #Atrial fibrillation with RVR s/p cardioversion #Type II TX/demand ischemia #Rate related heart failure with pulmonary edema #Hypertension #Hypercholesterolemia #C. difficile diarrhea #History of CVA #Diverticulosis #LV thrombus, on chronic anticoagulation #Previous UTI #Sundowning, dementia ? Continue patient on esmolol drip for now. Closely monitor in CSU. If patient goes back into A. fib will load with amiodarone and start amiodarone drip and subsequently put her on oral amiodarone. ? Elevated troponins most likely secondary to demand ischemia rate related ? Continue home medications ? Discussed with Dr. Gonzalez over the phone. Will order Geodon 20 mg x 1 see patient's response ? Continue mirtazapine, fluoxetine, ramelteon ? Continue Eliquis 5 twice daily, atorvastatin ? Hold hydrochlorothiazide ? Order Lasix 40 IV twice daily ? Continue oral vancomycin 4 times daily to complete previously started course for C. difficile -Check echo ? I will request for records to be obtained from [facility]. Full code Attestations Medical Necessity Statement*: Will require to stay in the hospital for 24 to 48 hours for monitoring of atrial fibrillation and aggressive IV diuresis for p ulm edema Coding Level of Care Code Acute Pm Head Cook for Chg Fwd Diagnoses Renal artery stenosis I70.1 H/O prosthetic mitral valve Z95.2 Pacemaker Z95.0 H/O: CVA (cerebrovascular accident) Z86.73 Dysphagia R13.10 Diverticulosis K57.90 Chronic anticoagulation Z79.01 Atrial fibrillation I48.91 Anxiety F41.9 Acute UTI N39.0 C. difficile diarrhea A04.72 Hypercholesterolemia E78.00 Hypertension I10
[2021-10-17 18:07] LABS: NT Pro B Type Natriuretic Pept 2738 pg/mL (0-450); Procalcitonin 0.11 ng/mL (0-0.5); Thyroid Stimulating Hormone 0.41 uIU/mL (0.27-4.20)
[2021-10-17] MEDS: ziprasidone hcl 20 mg Capsule PO (18:30)
[2021-10-17] MEDS: pantoprazole 40 mg SDV IVP (19:21)
[2021-10-17 21:30] LABS: Basophils # 0.1 10^3/uL (0.0-0.1); Basophils % 0.6 %; Eosinophils # 0.2 10^3/uL (0.0-0.8); Hematocrit 31.8 % (37.0-47.0); Hemoglobin 10.6 g/dL (11.5-15.3); Lymphocytes # 3.9 10^3/uL (0.8-4.8); Lymphocytes % 22.1 %; Mean Corpuscular HGB Conc 33.3 g/dL (30.0-36.0); Mean Corpuscular Hemoglobin 31.3 pg (28.0-34.0); Mean Corpuscular Volume 93.8 fl (81-99); Monocytes # 1.1 10^3/uL (0.2-0.9); Neutrophils % 69.7 %; Nucleated Red Blood Cells % 0 %; Platelet Count 457 10^3/cmm (130-400); Red Blood Count 3.39 10^6/uL (4.1-5.3); White Blood Count 17.5 10^3/uL (4.0-10.0)
[2021-10-17] MEDS: apixaban 5 mg Tablet PO (21:43)
[2021-10-17] MEDS: magnesium oxide 400 mg tablet PO (21:44)
[2021-10-17] MEDS: mirtazapine 15 mg Tablet 7.5 MG PO (21:44)
[2021-10-17] MEDS: LORazepam 0.5 mg Tablet PO (21:44)
[2021-10-17] MEDS: atorvastatin 40 mg Tablet 80 MG PO (21:44)
[2021-10-17] MEDS: pantoprazole DR 40 mg Tablet PO (21:47)
--- NOTE | 2021-10-17 22:45 | PC.NURSE ---
CAlled Dr. Duke and notified that Esmolol drip did not work due to hypotension and had to be stopped. Suggested Lidocaine drip. Instructed that Dr. Duke knows medicine and that if he needs anything he will let me know. Then informed him that patients is pulling at IV lines and at high flow nasal cannula and patient will drip O2 saturations into 70's. Recieved orders for restraints
[2021-10-17] MEDS: digoxin 250 mcg/ml INJ 2 mL 500 MCG IVP (23:32)
[2021-10-18] VITALS (76 sets, daily range): BP systolic 103–165; BP diastolic 50–117; PULSE 64–129; RESP 14–27; TEMP 36.7–37.9; O2SAT 84–100
--- NOTE | 2021-10-18 03:32 | USCV_ITS ---
Freda Kline Age: 80 Gender: F : 1940 Exam Date: 10/18/2021 03:34 Ordering Phys: Anablel Hirsch MD Technologist: RICKIE Exam Location: [facility] [place] Indication: Heart Failure BP: 155 / 117 HR: 96 Rhythm: Atrial fibrillation Technical Quality: Technically difficult study MEASUREMENTS (Male / Female) Normal Values 2D ECHO LV Diastolic Diameter PLAX 3.8 cm 4.2 - 5.9 / 3.9 - 5.3 cm LV Systolic Diameter PLAX 2.8 cm IVS Diastolic Thickness 1.1 cm 0.6 - 1.0 / 0.6 - 0.9 cm IVS Systolic Thickness 1.5 cm LVPW Diastolic Thickness 1.7 cm 0.6 - 1.0 / 0.6 - 0.9 cm LVPW Systolic Thickness 2.5 cm LVOT Diameter 2.3 cm LV Ejection Fraction 2D Teich 51.9 % LA Diameter 5.0 cm M-MODE Aortic Annulus Diameter 2.2 cm LA Ao Ratio MM 2.5 FINDINGS Left Ventricle The study is limited to just a few views of the parasternal long axis view. The patient is combative. The ventricle appears to be normal in size. There are no obvious wall motion disturbances. Her ejection fraction is probably in the low 50s. Diastolic function was not evaluated. Right Ventricle Right ventricle not well visualized. Right Atrium Right atrium not well visualized. Left Atrium Severely increased left atrial size. Mitral Valve Mitral valve not well visualized. Aortic Valve Aortic valve not well visualized. Tricuspid Valve Tricuspid valve not well visualized. Pulmonic Valve Pulmonic valve not well visualized. Pericardium Normal pericardium without effusion. Aorta Aorta not well visualized. IVC Inferior vena cava not visualized. CONCLUSIONS The study is limited to just a few views of the parasternal long axis view. The patient is combative. The ventricle appears to be normal in size. There are no obvious wall motion disturbances. Her ejection fraction is probably in the low 50s. Diastolic function was not evaluated. Severely increased left atrial size. Dr. Erasmo Dowell MD (Electronically Signed) Final Date: 18 October 2021 13:02 S
[2021-10-18] MEDS: digoxin 250 mcg/ml INJ 2 mL IVP ×2 (06:50→10:10)
[2021-10-18 07:14] LABS: Alanine Aminotransferase 12 U/L (0-33); Alkaline Phosphatase 188 IU/L (35-105); Blood Urea Nitrogen 18 mg/dL (8-23); Calcium 8.5 mg/dL (8.5-10.5); Carbon Dioxide 30 mmol/L (22-29); Chloride 102 mmol/L (98-107); Globulin 3.5 g/dL (1.3-4.6); Glucose 76 mg/dL (65-115); Magnesium 1.8 mg/dL (1.7-2.3); Osmolality Calculated 301 mOsm/kg (285-295); Sodium 145 mmol/L (136-145); Total Bilirubin 0.7 mg/dL (0.15-1.2); Total Protein 6.5 g/dL (6.6-8.7)
[2021-10-18 07:17] LABS: Basophils # 0.1 10^3/uL (0.0-0.1); Basophils % 0.6 %; Eosinophils # 0.4 10^3/uL (0.0-0.8); Eosinophils % 2.5 %; Hematocrit 35.8 % (37.0-47.0); Hemoglobin 11.5 g/dL (11.5-15.3); Lymphocytes # 2.4 10^3/uL (0.8-4.8); Lymphocytes % 16.2 %; Mean Corpuscular HGB Conc 32.1 g/dL (30.0-36.0); Mean Corpuscular Hemoglobin 31.5 pg (28.0-34.0); Mean Corpuscular Volume 98.1 fl (81-99); Mean Platelet Volume 10.6 fL (7.4-10.4); Monocytes # 0.8 10^3/uL (0.2-0.9); Monocytes % 5.6 %; Neutrophils # 11.14 10^3/uL (1.8-7.7); Neutrophils % 74.5 %; Nucleated Red Blood Cells % 0 %; Platelet Count 390 10^3/cmm (130-400); Red Blood Count 3.65 10^6/uL (4.1-5.3); Red Cell Distribution Width 15.1 % (12.1-15.1)
[2021-10-18 07:19] LABS: Anion Gap 16.5 (5-19); Aspartate Amino Transferase 27 U/L (0-32); Potassium 3.5 mmol/L (3.5-5.1)
--- NOTE | 2021-10-18 08:07 | XRR_ITS ---
PROCEDURE INFORMATION: Exam: XR Chest Exam date and time: 10/18/2021 5:09 AM Age: 80 years old Clinical indication: Condition or disease; Lung condition and disease; Pleural effusion and pneumonia; Other: Not specified; Prior surgery; Surgery type: Mitral valve. Pacemaker; Additional info: F/u TECHNIQUE: Imaging protocol: XR of the chest. Views: 1 view. COMPARISON: CR XR chest 1V portable [id number] 10/17/2021 10:32 AM FINDINGS: Tubes, catheters and devices: Cardiac device noted overlying the left chest. Lungs: Interval near complete consolidation of the left lung compared to prior exam. Stable right lower lobe atelectasis versus pulmonary edema. Pleural spaces: Stable small right-sided pleural effusion. Heart/Mediastinum: Prosthetic heart valve noted. The cardiomediastinal silhouette is obscured due to significant consolidation in the left chest. Bones/joints: Median sternotomy wires noted. XR/XR chest 1V portable [id number] IMPRESSION: 1. Interval near complete consolidation of the left lung. Findings concerning for worsening airspace disease/atelectasis versus enlarging pleural effusion. 2. Stable small right-sided pleural effusion.
[2021-10-18] MEDS: LORazepam 0.5 mg Tablet PO (10:06)
[2021-10-18] MEDS: FUROsemide 10 mg/mL SDV 4mL 40 MG IVP (10:06)
[2021-10-18] MEDS: multivitamin therapeutic Tablet 1 TAB PO (10:07)
[2021-10-18] MEDS: fluoxetine 20 mg Capsule PO (10:08)
[2021-10-18] MEDS: acetylcysteine 200 mg/mL SDV 4 mL 100 MG INHALATION ×3 (11:19→20:10)
[2021-10-18] MEDS: ipratropium-albuterol 3 mL Neb INHALATION ×3 (11:19→20:10)
--- NOTE | 2021-10-18 11:20 | CTR_ITS ---
PROCEDURE INFORMATION: Exam: CT Chest Without Contrast; Diagnostic Exam date and time: 10/18/2021 2:50 PM Age: 80 years old Clinical indication: Other: Hypoxia, prior surgery; Surgery type: Mitral valve replacement, hyst, patient HX: Iodine allergy, confused and combative patient; Additional info: Hypoxia, mucous plug TECHNIQUE: Imaging protocol: Diagnostic computed tomography of the chest without contrast. Radiation optimization: All CT scans at this facility use at least one of these dose optimization techniques: automated exposure control; mA and/or kV adjustment per patient size (includes targeted exams where dose is matched to clinical indication); or iterative reconstruction. COMPARISON: CT angio chest PE protcl [id number] 10/09/2021 10:00 PM RADIATION DOSE METRICS: Total DLP (mGy-cm): 608.18 FINDINGS: Tubes, catheters and devices: Cardiac pacemaker is in place. Lungs: Mucus secretions are seen in the trachea and left main bronchus. Compressive atelectasis is seen at both lung bases. In addition, there is mucous plugging in the left bronchus. There is extensive atelectasis in the left upper and lower lobes. Pneumonitis cannot be excluded. Previously described nodularity appears obscured by atelectasis. Pleural spaces: There are moderate to large bilateral pleural effusions. No pneumothorax is seen. Heart: Cardiomediastinal postsurgical changes are noted. Cardiomegaly is noted. No pericardial effusion. Coronary arterial calcifications are seen. Prosthetic mitral valve is noted. Lymph nodes: Mediastinal lymphadenopathy is again noted. Precarinal nodes measure up to 13 mm. Vasculature: The ascending aorta measures up to 3.5 cm. Aortic valvular calcifications are noted. No dissection is seen. Bones/joints: No acute osseous abnormality is detected. Soft tissues: Unremarkable. CT/CT chest wo con [id number] IMPRESSION: 1. Moderate to large bilateral pleural effusions. 2. Compressive atelectasis in both lungs. Extensive atelectasis in the left upper and lower lobes is likely both compressive and postobstructive. Pneumonitis is not excluded. 3. Mucus secretions in the trachea and left main bronchus. 4. Mediastinal lymphadenopathy. 5. Cardiomegaly. 6. Additional nonacute findings, as above.
[2021-10-18] MEDS: LORazepam 2 mg/mL INJ 1 mL 0.5 MG IVP ×2 (12:37→20:21)
--- NOTE | 2021-10-18 14:02 | P.PN_ITS ---
Subjective Subjective: No fever, leukocytosis trending down She is in sinus rhythm heart rate in 70s, blood pressure is stable Noticed dysphagia Will change p.o. meds to IV We do not need p.o. vancomycin anymore she has finished 10 days of p.o. vancomycin EF 50% She was cardioverted multiple times in the ER Potassium 3.5, magnesium 1.8 Worsening of hypoxia currently on 55% 40 L Mucous plug, started Mucomyst, hypertonic saline nebulization and DuoNeb and chest vest physiotherapy Dr. Simms is not on-call today Will do CT chest without contrast Hope will place midline Vitals/I&O/Wt Last Vital Signs Temp 98.0 F 10/18/21 12:40 Pulse 79 10/18/21 12:40 Resp 16 10/18/21 12:40 BP 129/73 10/18/21 12:40 Pulse Ox 97 10/18/21 12:40 10/17/21 10/18/21 10/18/21 22:59 06:59 14:59 Intake Total 50 / 50 Output Total 1200 / 1200 Balance -1200 / -1196.08 50 / 50 Weight last 48 hrs Weight 56.699 kg Weight 74.843 kg Physical Exam Narrative: Patient is stating that she is not in pain No active diarrhea No active chest pain Saturating well on heated high flow Looks euvolemic Crackles and rhonchi No signs of edema Sinus rhythm Hemodynamically stable Urinary Catheter Management: Morton: Cath Placed During This Visit: yes Reason for Continuing Indwelling Catheter: Accurate Measurement of Urinary Output in Critically Ill Patients Urinary Catheter Date of Insertion: 10/17/21 Data : 10/18/21 06:42 10/18/21 06:42 Micro: Microbiology 10/17/21 11:47 Urine Culture - Preliminary Urine,Clean Catch 10/17/21 19:48 Blood Culture - Preliminary Blood SPECIMEN COLLECTED 10/17/21 19:53 Blood Culture - Preliminary Blood SPECIMEN COLLECTED A&P Assessment and plan (1) Renal artery stenosis: Status: Acute (2) H/O prosthetic mitral valve: Status: Acute (3) Pacemaker: Status: Acute (4) H/O: CVA (cerebrovascular accident): Status: Acute (5) Dysphagia: Status: Acute (6) C. difficile diarrhea: Status: Acute (7) Anxiety: Status: Acute (8) Dementia: Status: Acute Plan A. fib RVR status post cardioversion x3 Echo shows EF 50% Appreciate cardiology input Currently she is in sinus rhythm Continue therapeutic anticoagulation which she was taking for A. fib and thrombus on her mitral valve Switch to Eliquis by tomorrow Start p.o. medications as AV arleth blocking agents She was taking Coreg, will add amiodarone 400 twice daily C. difficile diarrhea: Improved she finished 10 days of p.o. vancomycin Left sided mucous plug Chest vest, Mucomyst, DuoNeb, hypertonic saline nebulization CT chest Monitor in ICU for now She is full code Currently on heated high flow 55% 40 L Afebrile, leukocytosis trending down A dose of Lasix daily instead of twice a day Recent diagnosis of stroke with left-sided hemiplegia and dysphagia She aspirated on her previous admission Electrolytes: Replenished , history of dementia, he is on Geodon and Ativan 3 times a day as needed Family requested to restart her Ativan at 1 PM as after 3 PM she does get worse Full code N.p.o. Speech evaluation She might be able to go upstairs if ICU bed is needed Attestations Medical Necessity Statement*: Full code, continue medical management Time Spent in Patient Care: 30min Coding Level of Care Code Acute Continuous Vulcanizing Machine Operator for Chg Fwd Diagnoses Renal artery stenosis I70.1 H/O prosthetic mitral valve Z95.2 Pacemaker Z95.0 H/O: CVA (cerebrovascular accident) Z86.73 Dysphagia R13.10 C. difficile diarrhea A04.72 Anxiety F41.9 Dementia F03.90
--- NOTE | 2021-10-18 14:31 | PM.PN ---
Subjective Subjective: Overnight, the esmolol was stopped because she had low blood pressure. Currently she has been in and out of atrial fibrillation. She was started on amiodarone and is now at 0.5 mg/min. Currently, she is in sinus rhythm. She is asleep so I did not awaken her. Vitals/I&O/Wt Last Vital Signs Temp 98.5 F 10/18/21 14:03 Pulse 70 10/18/21 14:03 Resp 18 10/18/21 14:03 BP 129/70 10/18/21 14:03 Pulse Ox 95 10/18/21 14:03 10/17/21 10/18/21 10/18/21 22:59 06:59 14:59 Intake Total 50 / 50 Output Total 1200 / 1200 Balance -1200 / -1196.08 50 / 50 Weight last 48 hrs Weight 125 lb Weight 165 lb Physical Exam Narrative: GENERAL: She is asleep HEENT: Exam within normal limits. NECK: Supple without jugular vein distention. The carotid upstroke is normal without bruits. BACK: Exam normal. LUNGS: Clear. HEART: Regular rate and rhythm. ABDOMEN: Benign without organomegaly or tenderness. EXTREMITIES: No edema. NEUROLOGIC: Not done SKIN: Unremarkable. Urinary Catheter Management: Morton: Cath Placed During This Visit: yes Reason for Continuing Indwelling Catheter: Accurate Measurement of Urinary Output in Critically Ill Patients Urinary Catheter Date of Insertion: 10/17/21 Data : 10/18/21 06:42 10/18/21 06:42 Micro: Microbiology 10/17/21 11:47 Urine Culture - Preliminary Urine,Clean Catch 10/17/21 19:48 Blood Culture - Preliminary Blood SPECIMEN COLLECTED 10/17/21 19:53 Blood Culture - Preliminary Blood SPECIMEN COLLECTED A&P Assessment and plan (1) Dementia: Status: Acute (2) Renal artery stenosis: Status: Acute (3) H/O prosthetic mitral valve: Status: Acute (4) Pacemaker: Status: Acute (5) H/O: CVA (cerebrovascular accident): Status: Acute (6) Chronic anticoagulation: Status: Acute (7) Atrial fibrillation: Status: Acute (8) Anxiety: Status: Acute (9) Acute UTI: Status: Acute (10) C. difficile diarrhea: Status: Acute (11) Hypercholesterolemia: Status: Acute (12) Hypertension: Status: Acute Plan We will keep her on the intravenous amiodarone overnight. Tomorrow we will switch her over to p.o. amiodarone. I think she should probably stay on amiodarone for the duration because she is very likely to go back into atrial fibrillation. She remains on carvedilol. She is still on Lovenox full dose. Attestations Medical Necessity Statement*: Needs hospital stay for management of multiple underlying medical problems Coding Level of Care Code Established Pt Acute Biological Science Technician for Daniel Iraheta Patient Type Established History Detailed Exam Detailed Medical Decision Making Moderate Complexity Diagnoses Dementia F03.90 Renal artery stenosis I70.1 H/O prosthetic mitral valve Z95.2 Pacemaker Z95.0 H/O: CVA (cerebrovascular accident) Z86.73 Chronic anticoagulation Z79.01 Atrial fibrillation I48.91 Anxiety F41.9 Acute UTI N39.0 C. difficile diarrhea A04.72 Hypercholesterolemia E78.00 Hypertension I10
[2021-10-18] MEDS: lidocaine 1% 5 ML in potassium chloride premix 100 ML 50 ML IV (16:49)
[2021-10-18] MEDS: amiodarone 200 mg Tablet 400 MG PO (16:49)
[2021-10-18] MEDS: magnesium oxide 400 mg tablet PO (16:50)
[2021-10-18] MEDS: carvedilol 6.25 mg Tablet PO (16:50)
--- NOTE | 2021-10-18 18:00 | PC.SLP ---
GRAND SCRIBE attempted to assess pt. The pt was not able to maintain alertness long enough to participate. GRAND SCRIBE will try again tomorrow.
[2021-10-18] MEDS: sodium chloride 3.5% neb 4 mL Neb INHALATION (20:10)
[2021-10-18] MEDS: enoxaparin 60 mg/0.6 mL Syringe SUBCUT (20:21)
[2021-10-19] VITALS (28 sets, daily range): BP systolic 98–148; BP diastolic 50–85; PULSE 61–87; RESP 18–26; TEMP 36.1–37.3; O2SAT 92–99
[2021-10-19] MEDS: ipratropium-albuterol 3 mL Neb INHALATION ×6 (00:56→23:53)
[2021-10-19] MEDS: acetylcysteine 200 mg/mL SDV 4 mL 100 MG INHALATION ×6 (00:57→23:53)
[2021-10-19 03:52] LABS: Bacillus cereus group Not Detected (NOT DETECT); Bacillus subtillis group Not Detected (NOT DETECT); Corynebacterium Not Detected (NOT DETECT); Cutibacterium acnes (P.acnes) Not Detected (NOT DETECT); Enterococcus Not Detected (NOT DETECT); Enterococcus faecalis Not Detected (NOT DETECT); Enterococcus faecium Not Detected (NOT DETECT); Lactobacillus species Not Detected (NOT DETECT); Listeria Not Detected (NOT DETECT); Listeria monocytogenes Not Detected (NOT DETECT); Micrococcus Not Detected (NOT DETECT); Pan Candida Not Detected (NOT DETECT); Pan Gram-Negative Not Detected (NOT DETECT); Staphylococcus epidermidis Not Detected (NOT DETECT); Staphylococcus lugdunensis Not Detected (NOT DETECT); Staphylococcus species Detected (NOT DETECT); Streptococcus agalactiae Not Detected (NOT DETECT); Streptococcus anginosus group Not Detected (NOT DETECT); Streptococcus pneumoniae Not Detected (NOT DETECT); Streptococcus pyogenes Not Detected (NOT DETECT); Streptococcus species Not Detected (NOT DETECT); mecA Detected (NOT DETECT); mecC Not Detected (NOT DETECT)
[2021-10-19 06:17] LABS: Basophils # 0.1 10^3/uL (0.0-0.1); Basophils % 0.3 %; Eosinophils # 0.2 10^3/uL (0.0-0.8); Hematocrit 32.4 % (37.0-47.0); Hemoglobin 10.1 g/dL (11.5-15.3); Lymphocytes # 1.6 10^3/uL (0.8-4.8); Lymphocytes % 7.3 %; Mean Corpuscular HGB Conc 31.2 g/dL (30.0-36.0); Mean Corpuscular Hemoglobin 31.3 pg (28.0-34.0); Mean Corpuscular Volume 100.3 fl (81-99); Monocytes # 0.8 10^3/uL (0.2-0.9); Monocytes % 3.9 %; Neutrophils # 18.97 10^3/uL (1.8-7.7); Neutrophils % 87.1 %; Nucleated Red Blood Cells % 0 %; Platelet Count 395 10^3/cmm (130-400); Red Blood Count 3.23 10^6/uL (4.1-5.3); White Blood Count 21.8 10^3/uL (4.0-10.0)
[2021-10-19 06:43] LABS: Chloride 103 mmol/L (98-107); Potassium 4.1 mmol/L (3.5-5.1)
--- NOTE | 2021-10-19 07:02 | XR_ITS ---
WS: [id number] Exam: XR chest 1V portable [id number] Date/Time of Exam: 10/19/2021 7:11 AM Reason For Exam: mucuous plug Comparison 10/18/2021. There is improved ventilation of the left lung. The left upper lobe is now ventilated. There is still consolidation of the left lower lobe and left pleural effusion. There is mild infiltrate in the righ t lower lobe and right basal pleural effusion unchanged. No pneumothorax. Cardiomediastinal silhouett e is normal for technique. Signs of previous median sternotomy and cardiac valve replacement. An ICD seen over the left chest. Bony structures are intact. XR/XR chest 1V portable [id number] IMPRESSION: 1. Improved aeration of the left lung. The left upper lobe is relatively well v entilated. There is still consolidation and atelectasis in the left lower lobe and moderate size left pleural effusion. 2. Diffuse infiltrate in the right lower lobe and right basal pleural effusion. This is unchanged.
[2021-10-19 07:11] LABS: Anion Gap 17.1 (5-19); Blood Urea Nitrogen 16 mg/dL (8-23); Calcium 8.4 mg/dL (8.5-10.5); Carbon Dioxide 33 mmol/L (22-29); Creatinine Clr Calc Pharmacy 49.5157; Glucose 66 mg/dL (65-115); Osmolality Calculated 299 mOsm/kg (285-295); Sodium 145 mmol/L (136-145)
[2021-10-19] MEDS: magnesium oxide 400 mg tablet PO ×2 (08:25→17:56)
--- NOTE | 2021-10-19 08:25 | P.PN_ITS ---
Subjective Subjective: Uneventful night. She remains in sinus rhythm. The IV amiodarone has been stopped and she is on 400 mg p.o. twice daily. She does not like to take her medications and tends to spit them out. Otherwise, no change. She occasionally becomes agitated and combative. Vitals/I&O/Wt Last Vital Signs Temp 98.9 F 10/19/21 04:00 Pulse 79 10/19/21 05:52 Resp 18 10/19/21 04:00 BP 139/70 10/19/21 04:00 Pulse Ox 98 10/19/21 04:00 10/18/21 10/19/21 10/19/21 22:59 06:59 14:59 Intake Total 351.08 / 401.08 Output Total 1900 / 1900 350 / 2250 Balance -1548.92 / -1498.92 -350 / -1848.92 Weight last 48 hrs Weight 125 lb Weight 165 lb Physical Exam Narrative: GENERAL: Sleeping this morning HEENT: Exam within normal limits. NECK: Supple without jugular vein distention. The carotid upstroke is normal without bruits. BACK: Exam normal. LUNGS: Clear. HEART: Regular rate and rhythm. ABDOMEN: Benign without organomegaly or tenderness. EXTREMITIES: No edema. NEUROLOGIC: Exam not done. SKIN: Unremarkable. Urinary Catheter Management: Morton: Cath Placed During This Visit: yes Reason for Continuing Indwelling Catheter: Accurate Measurement of Urinary Output in Critically Ill Patients Urinary Catheter Date of Insertion: 10/17/21 Data : 10/19/21 04:20 10/19/21 04:20 Micro: Microbiology 10/17/21 19:53 Blood Culture - Preliminary Blood NEGATIVE TO DATE 10/17/21 19:48 Blood Culture - Preliminary Blood Coagulase negativ staphylococc 10/17/21 11:47 Urine Culture - Preliminary Urine,Clean Catch A&P Assessment and plan (1) Dementia: Status: Acute (2) Renal artery stenosis: Status: Acute (3) H/O prosthetic mitral valve: Status: Acute (4) Pacemaker: Status: Acute (5) H/O: CVA (cerebrovascular accident): Status: Acute (6) Dysphagia: Status: Acute (7) Chronic anticoagulation: Status: Acute (8) Atrial fibrillation: Status: Acute (9) Anxiety: Status: Acute (10) Acute UTI: Status: Acute (11) C. difficile diarrhea: Status: Acute (12) Hypercholesterolemia: Status: Acute (13) Hypertension: Status: Acute Plan Should be able to decrease the amiodarone dose to 400 mg a day soon. I would recommend sending her out of the hospital on amiodarone 400 mg a day for a week and then 200 mg a day. Attestations Medical Necessity Statement*: Continues the need for hospital stay to manage sepsis, urinary tract infection, pneumonia, diarrhea, atrial fibrillation and agitation. 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 difficile diarrhea A04.72 Hypercholesterolemia E78.00 Hypertension I10
[2021-10-19] MEDS: FUROsemide 10 mg/mL SDV 4mL 40 MG IVP (08:26)
[2021-10-19] MEDS: amiodarone 200 mg Tablet 400 MG PO (08:26)
[2021-10-19] MEDS: fluoxetine 20 mg Capsule PO (08:26)
[2021-10-19] MEDS: pantoprazole DR 40 mg Tablet PO (08:26)
[2021-10-19] MEDS: cyanocobalamin 1,000 mcg Tablet 1000 MCG PO (08:26)
[2021-10-19] MEDS: carvedilol 6.25 mg Tablet PO ×2 (08:26→17:56)
[2021-10-19] MEDS: enoxaparin 60 mg/0.6 mL Syringe SUBCUT ×2 (08:26→21:34)
[2021-10-19] MEDS: sodium chloride 3.5% neb 4 mL Neb INHALATION ×2 (08:30→20:04)
[2021-10-19] MEDS: linezolid premix 600 MG/300 ML PREMIX 300 MG IV ×2 (09:57→21:38)
--- NOTE | 2021-10-19 10:27 | P.ANESASSM_ITS ---
Pre-Anesthetic Assessment Height/Weight: Height 1.6 m Weight 56.699 kg Temp Pulse Resp BP Pulse Ox 99.2 F 82 23 H 111/80 96 10/19/21 08:00 10/19/21 09:00 10/19/21 09:00 10/19/21 09:00 10/19/21 09:00 Operation Date: 10/19/21 12:40 Proposed Procedures p Bronchoscopy(Not Applicable) - Connor Neves DatarMD Familial anesthetic complications: none Last intake: 3 - 4 tbps worth of vanilla icecream at 1000 Social No alcohol and No tobacco Exam alert, oriented x 3, clear to auscultation bilaterally and regular rate & rhythm coarse breath sounds b/l Airway Mallampati: Class II Dentition: other (poor dentition) Pulmonary hx aspiration, highly flow NC., acute resp failure w/ mucus plug CV/HEM Atrial Fibrillation and Hypertension pacemaker, mitral valve replacement w/ blood clots GI dysphagia Neuropsych Cerebrovascular Accident (hemiplegia) Anesthetic Plan ASA status: 4 Anesthesia: MAC Medications/Allergies Home Medications Medication Instructions Recorded Confirmed Last Taken Type acetaminophen 325 mg capsule 650 mg PO Q6H PRN 05/06/19 10/17/21 10/15/21 History polyethylene glycol 3350 17 17 gm PO DAILY@0800 05/06/19 10/17/21 10/17/21 History gram/dose oral powder (Miralax) sennosides 8.6 mg tablet (senna) 17.2 mg PO BID@799,1999 PRN 05/06/19 10/17/21 10/16/21 History albuterol sulfate 90 mcg/actuation 2 puff INHALATION Q6H PRN #6.7 gm 07/15/19 10/17/21 Unknown Rx aerosol inhaler (ProAir HFA) cyanocobalamin (vitamin B-12) 1,000 mcg PO DAILY@0800 08/22/20 10/17/21 10/16/21 History 1,000 mcg tablet (Vitamin B-12) pantoprazole 40 mg tablet,delayed 40 mg PO BID@0800,199908/22/20 10/17/21 10/16/21 History release diltiazem HCl 240 mg 240 mg PO DAILY 11/23/20 10/17/21 10/16/21 History capsule,extended release 24 hr apixaban 5 mg tablet 5 mg PO BID 10/08/21 10/17/21 10/16/21 History atorvastatin 80 mg tablet 80 mg PO BEDTIME 10/08/21 10/17/21 10/16/21 History carvedilol 6.25 mg tablet 6.25 mg PO BID 10/08/21 10/17/21 10/16/21 History fluoxetine 10 mg tablet 20 mg PO DAILY 10/08/21 10/17/21 10/16/21 History hydrochlorothiazide 12.5 mg tablet 12.5 mg PO DAILY 10/08/21 10/17/21 10/16/21 History lorazepam 0.5 mg tablet (Ativan) 0.5 mg PO DAILY@0800 10/08/21 10/17/21 10/16/21 History mirtazapine 7.5 mg tablet 7.5 mg PO BEDTIME 10/08/21 10/17/21 10/16/21 History ondansetron 4 mg disintegrating 4 mg PO Q6H PRN 10/08/21 10/17/21 Unknown History tablet ramelteon 8 mg tablet 8 mg PO QPM 10/08/21 10/17/21 10/16/21 History Magnesium Oxide [Magox] 400 mg PO BID #10 tab 10/15/21 10/17/21 10/16/21 Rx calcium carbonate 500 mg calcium 500 mg PO DAILY #30 tab 10/15/21 10/17/21 10/16/21 Rx (1,250 mg) chewable tablet (Calcium 500) potassium chloride 10 mEq 10 meq PO DAILY #10 tab 10/15/21 10/17/21 10/16/21 Rx tablet,extended release vancomycin 1,000 mg intravenous 125 mg PO QID #12 ea 10/15/21 10/17/21 10/17/21 Rx injection cholecalciferol (vitamin D3) 125 125 mcg PO DAILY 10/17/21 10/17/21 10/16/21 History mcg (5,000 unit) tablet (Vitamin D3) lorazepam 0.5 mg tablet (Ativan) 0.5 mg PO BID PRN 10/17/21 10/17/21 Unknown History multivitamin 1 tab PO DAILY 10/17/21 10/17/21 10/16/21 History Allergies Allergy/AdvReac Type Severity Reaction Status Date / Time amoxicillin [From Amoxil] Allergy ALGY-Hives Verified 10/08/21 15:35 ciprofloxacin [From Cipro] Allergy rash Verified 10/08/21 15:35 nitrofurantoin Allergy ALGY-Rash Verified 10/08/21 15:35 [From Macrobid] Iodinated Contrast Media AdvReac Rapid Pulse Verified 10/08/21 15:35 propafenone [From Rythmol] AdvReac NDR-Nausea Verified 10/08/21 15:35 Current Medications Generic Name Dose Route Start Last Admin Trade Name Bunny PRN Reason Stop Dose Admin Acetylcysteine 100 mg 10/18/21 08:00 10/19/21 08:28 Acetylcysteine 200 Mg/Ml Sdv 4 Ml INHALATION 100 mg Q4H.RESPIRATORY JOSE Administration Albuterol/Ipratropium 3 ml 10/18/21 12:00 10/19/21 08:28 Ipratropium-Albuterol 3 Ml Neb INHALATION 3 ml Q4H.RESPIRATORY JOSE Administration Amiodarone HCl 400 mg 10/18/21 18:00 10/19/21 08:26 Amiodarone 200 Mg Tablet PO 400 mg BID JOSE Administration Atorvastatin Calcium 80 mg 10/17/21 21:00 10/17/21 21:44 Atorvastatin 40 Mg Tablet PO 80 mg BEDTIME JOSE Administration Carvedilol 6.25 mg 10/18/21 09:00 10/19/21 08:26 Carvedilol 6.25 Mg Tablet PO 6.25 mg BID JOSE Administration Cyanocobalamin 1,000 mcg 10/18/21 08:00 10/19/21 08:26 Cyanocobalamin 1,000 Mcg Tablet PO 1,000 mcg DAILY@0800 JOSE Administration Enoxaparin Sodium 60 mg 10/18/21 21:00 10/19/21 08:26 Enoxaparin 60 Mg/0.6 Ml Syringe SUBCUT 60 mg Q12H JOSE Administration Fluoxetine HCl 20 mg 10/18/21 09:00 10/19/21 08:26 Fluoxetine 20 Mg Capsule PO 20 mg DAILY JOSE Administration Furosemide 40 mg 10/19/21 09:00 10/19/21 08:26 Furosemide 10 Mg/Ml Sdv 4ml IVP 40 mg DAILY JOSE Administration Linezolid 600 mg in 300 mls @ 300 mls/hr 10/19/21 10:00 10/19/21 09:57 Zyvox Premix IV 300 mls/hr Q12H JOSE Administration Protocol Imipenem/Cilastatin Sodium 500 100 mls @ 200 mls/hr 10/19/21 09:00 10/19/21 09:56 mg/ Sodium Chloride IV 200 mls/hr Q6H JOSE Administration Protocol Lorazepam 0.5 mg 10/18/21 10:58 10/18/21 20:21 Lorazepam 2 Mg/Ml Inj 1 Ml IVP 0.5 mg Q8H PRN Administration ANXIETY Magnesium Oxide 400 mg 10/17/21 20:49 10/19/21 08:25 Magnesium Oxide 400 Mg Tablet PO 400 mg BID JOSE Administration Mirtazapine 7.5 mg 10/17/21 21:00 10/17/21 21:44 Mirtazapine 15 Mg Tablet PO 7.5 mg BEDTIME JOSE Administration Pantoprazole Sodium 40 mg 10/19/21 09:00 10/19/21 08:[address] 40 Mg Tablet PO 40 mg DAILY JOSE Administration Polyethylene Glycol 17 gm 10/18/21 08:00 10/19/21 08:26 Polyethylene Glycol 3350 Pkt 17 Gm PO Not Given DAILY@0800 JOSE Sodium Chloride 4 ml 10/18/21 20:00 10/19/21 08:30 Sodium Chloride 3.5% Neb 4 Ml Neb INHALATION 4 ml BID.RESPIRATORY JOSE Administration Ziprasidone 10 mg 10/18/21 21:00 10/18/21 20:23 Ziprasidone 20 Mg/Ml Sdv IM Not Given BEDTIME JOSE PFSH Anesthesia Medical History (Updated 10/18/21 @ 14:07 by Freedom Robles MD) Acute UTI Anxiety Atrial fibrillation CAD (coronary artery disease) Chronic anticoagulation Constipation Diverticulosis Dysphagia Dysphagia Dysrhythmia GERD (gastroesophageal reflux disease) Gross hematuria H/O: CVA (cerebrovascular accident) Hypercholesterolemia Hypertension Other microscopic hematuria Pacemaker Recurrent UTI Renal artery stenosis Urolithiasis Weakness due to cerebrovascular accident Surgical History (Updated 10/17/21 @ 16:38 by Erasmo Dowell MD) H/O colonoscopy yrs ago H/O esophagogastroduodenoscopy never had one H/O mitral valve replacement H/O prosthetic mitral valve History of appendectomy History of hysterectomy History of renal stent History of tonsillectomy Family History Brother Cancer Hyperlipidemia Father Heart disease Stroke Sister Bleeding disorder hemorrhaged Other CAD (coronary artery disease) Hypertension Denies family history of Anesthesia complication Social History Smoking and tobacco status: never smoked Alcohol intake: never Lives independently: No Household members: spouse Housing: House Marital status: Current occupational status: disabled Current gender identity: Female Data Anesthesia : 10/19/21 04:20 10/19/21 04:20 Short CBC 10/17/21 10/17/21 10/18/21 Range/Units 10:35 21:22 06:42 WBC 16.2 H 17.5 H 15.0 H (4.0-10.0) 10^3/uL Hgb 11.9 10.6 L 11.5 (11.5-15.3) g/dL Hct 37.6 31.8 L 35.8 L (37.0-47.0) % MCV 100.3 H 93.8 D 98.1 (81-99) fl Plt Count 484 H 457 H 390 (130-400) 10^3/cmm Neut % (Auto) 81.5 69.7 74.5 % Neut # (Auto) 13.22 H 12.20 H 11.14 H (1.8-7.7) 10^3/uL 10/19/21 Range/Units 04:20 WBC 21.8 H (4.0-10.0) 10^3/uL Hgb 10.1 L (11.5-15.3) g/dL Hct 32.4 L (37.0-47.0) % MCV 100.3 H (81-99) fl Plt Count 395 (130-400) 10^3/cmm Neut % (Auto) 87.1 % Neut # (Auto) 18.97 H (1.8-7.7) 10^3/uL BMP 10/17/21 10/18/21 10/19/21 10:35 06:42 04:20 Sodium 147 H 145 145 Potassium 4.1 3.5 4.1 Chloride 106 102 103 Carbon Dioxide 30 H 30 H 33 H BUN 16 18 16 Creatinine 0.8 1.0 H 0.8 Glucose 103 76 66 Calcium 9.2 8.5 8.4 L Cardiac Enzymes 10/17/21 10/17/21 10/17/21 Range/Units 10:35 10:35 12:44 Troponin T Baseline 63 H (0-10) ng/L Troponin T 120 Minute 70.12 H (0-10) ng/L Delta Troponin T 7.12 (0-10) ABS# Troponin T Hi Sens 6Hr (0-10) ng/L Troponin T Hi Sens 6Hr Delta (0-12) ng/L NT-Pro-B Natriuret Pep 2738 H (0-450) pg/mL 10/17/21 Range/Units 19:53 Troponin T Baseline (0-10) ng/L Troponin T 120 Minute (0-10) ng/L Delta Troponin T (0-10) ABS# Troponin T Hi Sens 6Hr 63.60 H (0-10) ng/L Troponin T Hi Sens 6Hr Delta 0.60 (0-12) ng/L NT-Pro-B Natriuret Pep (0-450) pg/mL Liver Function 10/17/21 10/18/21 Range/Units 10:35 06:42 Total Bilirubin 0.6 0.7 (0.15-1.2) mg/dL AST 15 27 (0-32) U/L ALT 9 12 (0-33) U/L Alkaline Phosphatase 112 H 188 H (35-105) IU/L Albumin 3.3 L 3.0 L (3.5-5.2) g/dL Urine 10/17/21 Range/Units 11:47 Urine Color Yellow (Yellow) Urine Appearance Cloudy (CLEAR) Urine pH 5 (5-7) Ur Specific [place] 1.015 (1.005-1.030) Urine Protein Trace (Negative) Urine Glucose (UA) Norm (Normal) Urine Ketones Negative (Negative) Urine Nitrate Negative (Negative) Urine Bilirubin Neg (Negative) Ur Leukocyte Esterase 1+ H (Negative) Urine RBC 15-25 H (0-2) /hpf Urine WBC 15-25 H (0-5) /hpf Microbiology 10/17/21 11:47 Urine Culture - Final Urine,Clean Catch 10/17/21 19:53 Blood Culture - Preliminary Blood NEGATIVE TO DATE 10/17/21 19:48 Blood Culture - Preliminary Blood Coagulase negativ staphylococc Cardiac Studies: Echocardiogram 10/18/21
--- NOTE | 2021-10-19 10:27 | PC.CHAP ---
Pastoral Care Encounter/Spiritual Assessment Type of Contact [] Declined wood piler visit [] Patient/Family/Request visit [] Outpatient visit [] Follow-up visit [] Physician referral [] Code/Alert [x] Routine visit [] Staff referral [] Actively dying [x] Patient sleeping [] Family support [] [] Out of room [] Palliative care [] [] Receiving care in room [] Pre-surgical visit [] Trauma [] Long length of stay [x] ICU visit [] Other: Relational/Emotional Strength [] Patient feels connected with others/family/visitors/staff [] Distress [] Loneliness/isolation [] Abandonment Spirituality of Patient [] Person of Arielle [] Attends Alevism of their Arielle [] Believes in Prayer [] Reads Bible or Mu-Ism materials [] There are Spiritual issues to be addressed Geodetic Survey Director Interventions [x] Prayer [] Active listening [] Non-anxious presence [] Spiritual/emotional support [] Crisis/trauma care [] Spiritual counseling [] Bereavement support [] Provided bereavement packet [] Provided Bible/devotional materials [] Provided toy/stuffed animal, coloring book to patient or family member [] Provided Communion [] Anointing/[place] [] Salvation [x] Completed spiritual assessment [] Other: Impact on Illness or Injury [] Angry [] Fearful [] Anxious [] Often cries [] Exhaustion [] Unable to work [] Unable to attend yazdanism [] Unable to walk/stand [] Unable to read [] Unable to drive [] Unable to eat/drink [] Unable to sleep [] Unable to be with family [] Patient intubated [] Other: Summary Time spent with patient
[2021-10-19] MEDS: metroNIDAZOLE IV 500 MG/100 ML PREMIX 100 MG IV ×2 (10:28→18:19)
--- NOTE | 2021-10-19 13:05 | P.PN_ITS ---
Subjective Subjective: Plan for bronchoscopy today, Dr. Simms has been notified and consulted However this morning her oxygen requirement is only 4 L on oxygen mask Patient is not endorsing any new events She has been very picky eater Speech therapy recommended pur?ed diet with nectar thick liquid, Magic cup to supplement intake or Ensure No significant events overnight Leukocytosis trended up He has remained afebrile She does have history of mitral valve thrombus and A. fib on anticoagulating agent With bronchoscopy we will avoid biopsy because she received anticoagulating agent this morning Vitals/I&O/Wt Last Vital Signs Temp 99.2 F 10/19/21 08:00 Pulse 67 10/19/21 12:00 Resp 21 H 10/19/21 12:00 BP 121/74 10/19/21 12:00 Pulse Ox 96 10/19/21 12:00 10/18/21 10/19/21 10/19/21 22:59 06:59 14:59 Intake Total 351.08 / 401.08 500 / 500 Output Total 1900 / 1900 350 / 2250 Balance -1548.92 / -1498.92 -350 / -1848.92 500 / 500 Physical Exam Narrative: Patient is verbally redirectable Resting comfortably on 4 L oxygen mask Diminished left-sided breath sounds No acute respiratory distress S1, S2 variable Heart rate 70s Abdomen soft No signs of edema Rectal tube is empty No new focal deficit She has left-sided hemiplegia She keeps her eyes closed during communication Urinary Catheter Management: Morton: Cath Placed During This Visit: yes Reason for Continuing Indwelling Catheter: Accurate Measurement of Urinary Output in Critically Ill Patients Urinary Catheter Date of Insertion: 10/17/21 Data : 10/19/21 04:20 10/19/21 04:20 Micro: Microbiology 10/17/21 11:47 Urine Culture - Final Urine,Clean Catch 10/17/21 19:53 Blood Culture - Preliminary Blood NEGATIVE TO DATE 10/17/21 19:48 Blood Culture - Preliminary Blood Coagulase negativ staphylococc A&P Assessment and plan (1) Dementia: Status: Acute (2) Renal artery stenosis: Status: Acute (3) H/O prosthetic mitral valve: Status: Acute (4) Pacemaker: Status: Acute (5) H/O: CVA (cerebrovascular accident): Status: Acute (6) Dysphagia: Status: Acute (7) Atrial fibrillation: Status: Acute (8) C. difficile diarrhea: Status: Acute Plan A. fib Status post cardioversion Currently in sinus rhythm Currently on p.o. amiodarone 400 twice daily, plan to discharge her on 200 mg daily amiodarone at the time of discharge Appreciate cardiology recommendations Keep potassium above 4 and magnesium above 2 C. difficile diarrhea: Rectal tube has been empty, Monitor for any worsening of diarrhea Monitor for relapse Leukocytosis could be related to underlying C. difficile she did have profuse diarrhea yesterday that required addition of IV metronidazole Left main bronchus mucous plug Worsening of hypoxia currently on 4 L oxygen as Bronchoscopy today as per Dr. 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 Fwd Diagnoses Dementia F03.90 Renal artery stenosis I70.1 H/O prosthetic mitral valve Z95.2 Pacemaker Z95.0 H/O: CVA (cerebrovascular accident) Z86.73 Dysphagia R13.10 Atrial fibrillation I48.91 C. difficile diarrhea A04.72
[2021-10-19] MEDS: sodium chloride 0.9% 1,000 ML 30 ML IV (15:00)
--- NOTE | 2021-10-19 15:00 | P.CONIM_ITS ---
Providers/Reason For Consult Consulting Physician/Specialty*: Connor Simms MD/Pulmonary Critical Care Reason for Consult*: Left upper lobe and lower lobe atelectasis in patient with significant mucus secretions Requesting Physician: Freedom Robles MD Attending Physician: Freedom Robles MD Primary Care Provider: Robin Marroquin DO History of Present Illness History of Present Illness upon review of chart: Freda Kline is a 80 year old female Freda Kline is a 80 year old female with past medical history of LV thrombus, UTI, CAD, stroke, pacemaker, renal artery stenosis, recent admission for CHF discharged 2 days ago presented to the hospital 10/17/2021 with complaint of high heart rate. There was a concern for LV thrombus and was placed on Eliquis at [facility] couple of months ago and patient may have endocarditis and prosthetic mitral valve and received antibiotics-followed with C. difficile diarrhea. She had a recent admission and was discharged on 10/15/2021 for C. difficile diarrhea. she was brought in from the [facility].? Patient was also short of breath.? When she arrived at the ER she did convert to sinus rhythm but after having given inhaled bronchodilators she went back into A. fib.? Esmolol was started in the ER which caused her blood pressure to drop.? She subsequently converted to sinus rhythm and then went into SVT.? He was given adenosine 6 mg then 12 mg and ultimately had to be cardioverted x3 and then she converted back to sinus rhythm.? Since then patient has been in sinus rhythm.? Spoke to family at bedside.? They state that patient has an issue with sundowning around the evening time and they would like a medication to be given to her to help with that and advance.? She is on fluoxetine, ramelteon, mirtazapine at night.? She is unable to answer many questions and she was confused.? Patient was given one-time dose of Primaxin in the ER.? She is allergic to penicillin. Chart review: She does have a history of being at [facility] recently for management of left ventricular thrombus and then she was placed on Eliquis.? This information is obtained from the chart.? 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 She was given antibiotics.? After she left [facility] she came back to [place] and ended up getting admitted for C. difficile colitis and aspiration pneumonia.? She was discharged after being managed for the above 2 days prior and today she presents to the hospital again.? At baseline she has had a stroke which has left her with some residual difficulties.? She has a history of nonobstructive coronary artery disease, hypertension, sick sinus syndrome, pacemaker, anxiety, depression, bilateral shortness status post 10, dyslipidemia, dysphagia secondary to stroke, diverticular disease and chronic kidney disease. Currently she is requiring 5 L nasal cannula. She was cardioverted multiple times in ER. Her heart rate appears to be stable now. Upon review of CT chest 10/09/2021 she had bilateral small pleural effusions and has part solid density in the lateral left upper lobe with slightly irregular margins measuring 17 x 11 mm. Another part solid nodular density in anterior right upper lobe measuring 10 x 8 and few right upper lobe 1 to 2 mm tiny densities. In comparison Her chest CT 10/18/2021 showed Compressive atelectasis in both lungs. Extensive atelectasis in the left upper and lower lobes is likely both compressive and postobstructive. Mucus secretions in the trachea and left main bronchus. Pulmonary consulted for left lung atelectasis with suspected post obstruction. Patient seen at bedside today appeared confused and currently requiring 5 L nasal cannula Has minimal communication -Recently she was admitted for C. difficile diarrhea-still has profuse diarrhea yesterday and received IV metronidazole -She was placed on Mucomyst, hypertonic saline and chest physiotherapy it improved her left upper lobe aeration but there was still some consolidation/atelectasis of left lower lobe. And so plan is to proceed with bronchoscopy for airway clearance -Patient is on full dose anticoagulation for A. fib RVR -Speech therapy evaluated today morning recommended. Dysphagia diet and nectar thick liquid -Other labs and imaging reviewed Medications/Allergies Home Medications Medication Instructions Recorded Confirmed Last Taken Type acetaminophen 325 mg capsule 650 mg PO Q6H PRN 05/06/19 10/17/21 10/15/21 History polyethylene glycol 3350 17 17 gm PO DAILY@0800 05/06/19 10/17/21 10/17/21 Hi story gram/dose oral powder (Miralax) sennosides 8.6 mg tablet (senna) 17.2 mg PO BID@799,1999 PRN 05/06/19 10/17/21 10/16/21 History albuterol sulfate 90 mcg/actuation 2 puff INHALATION Q6H PRN #6.7 gm 07/15/19 10/17/21 Unknown Rx aerosol inhaler (ProAir HFA) cyanocobalamin (vitamin B-12) 1,000 mcg PO DAILY@0800 08/22/20 10/17/21 10/16/21 History 1,000 mcg tablet (Vitamin B-12) pantoprazole 40 mg tablet,delayed 40 mg PO BID@0808/22/20 10/17/21 10/16/21 History release diltiazem HCl 240 mg 240 mg PO DAILY 11/23/20 10/17/21 10/16/21 History capsule,extended release 24 hr apixaban 5 mg tablet 5 mg PO BID 10/08/21 10/17/21 10/16/21 History atorvastatin 80 mg tablet 80 mg PO BEDTIME 10/08/21 10/17/21 10/16/21 History carvedilol 6.25 mg tablet 6.25 mg PO BID 10/08/21 10/17/21 10/16/21 History fluoxetine 10 mg tablet 20 mg PO DAILY 10/08/21 10/17/21 10/16/21 History hydrochlorothiazide 12.5 mg tablet 12.5 mg PO DAILY 10/08/21 10/17/21 10/16/21 History lorazepam 0.5 mg tablet (Ativan) 0.5 mg PO DAILY@0800 10/08/21 10/17/21 10/16/21 History mirtazapine 7.5 mg tablet 7.5 mg PO BEDTIME 10/08/21 10/17/21 10/16/21 History ondansetron 4 mg disintegrating 4 mg PO Q6H PRN 10/08/21 10/17/21 Unknown History tablet ramelteon 8 mg tablet 8 mg PO QPM 10/08/21 10/17/21 10/16/21 History Magnesium Oxide [Magox] 400 mg PO BID #10 tab 10/15/21 10/17/21 10/16/21 Rx calcium carbonate 500 mg calcium 500 mg PO DAILY #30 tab 10/15/21 10/17/21 10/16/21 Rx (1,250 mg) chewable tablet (Calcium 500) potassium chloride 10 mEq 10 meq PO DAILY #10 tab 10/15/21 10/17/21 10/16/21 Rx tablet,extended release vancomycin 1,000 mg intravenous 125 mg PO QID #12 ea 10/15/21 10/17/21 10/17/21 Rx injection cholecalciferol (vitamin D3) 125 125 mcg PO DAILY 10/17/21 10/17/21 10/16/21 History mcg (5,000 unit) tablet (Vitamin D3) lorazepam 0.5 mg tablet (Ativan) 0.5 mg PO BID PRN 10/17/21 10/17/21 Unknown History multivitamin 1 tab PO DAILY 10/17/21 10/17/21 10/16/21 History Allergies Allergy/AdvReac Type Severity Reaction Status Date / Time amoxicillin [From Amoxil] Allergy ALGY-Hives Verified 10/08/21 15:35 ciprofloxacin [From Cipro] Allergy rash Verified 10/08/21 15:35 nitrofurantoin Allergy ALGY-Rash Verified 10/08/21 15:35 [From Macrobid] Iodinated Contrast Media AdvReac Rapid Pulse Verified 10/08/21 15:35 propafenone [From Rythmol] AdvReac NDR-Nausea Verified 10/08/21 15:35 Current Medications Generic Name Dose Route Start Last Admin Trade Name Freq PRN Reason Stop Dose Admin Acetylcysteine 100 mg 10/18/21 08:00 10/19/21 08:28 Acetylcysteine 200 Mg/Ml Sdv 4 Ml INHALATION 100 mg Q4H.RESPIRATORY JOSE Administration Albuterol/Ipratropium 3 ml 10/18/21 12:00 10/19/21 11:20 Ipratropium-Albuterol 3 Ml Neb INHALATION 3 ml Q4H.RESPIRATORY JOSE Administration Atorvastatin Calcium 80 mg 10/17/21 21:00 10/17/21 21:44 Atorvastatin 40 Mg Tablet PO 80 mg BEDTIME JOSE Administration Carvedilol 6.25 mg 10/18/21 09:00 10/19/21 08:26 Carvedilol 6.25 Mg Tablet PO 6.25 mg BID JOSE Administration Cyanocobalamin 1,000 mcg 10/18/21 08:00 10/19/21 08:26 Cyanocobalamin 1,000 Mcg Tablet PO 1,000 mcg DAILY@0800 JOSE Administration Enoxaparin Sodium 60 mg 10/18/21 21:00 10/19/21 08:26 Enoxaparin 60 Mg/0.6 Ml Syringe SUBCUT 60 mg Q12H JOSE Administration Fluoxetine HCl 20 mg 10/18/21 09:00 10/19/21 08:26 Fluoxetine 20 Mg Capsule PO 20 mg DAILY JOSE Administration Metronidazole 500 mg in 100 mls @ 100 mls/hr 10/19/21 11:00 10/19/21 11:38 Flagyl Iv IV Infused Q8H JOSE Infusion Protocol Linezolid 600 mg in 300 mls @ 300 mls/hr 10/19/21 10:00 10/19/21 11:09 Zyvox Premix IV Infused Q12H JOSE Infusion Protocol Imipenem/Cilastatin Sodium 500 100 mls @ 200 mls/hr 10/19/21 09:00 10/19/21 10:28 mg/ Sodium Chloride IV Infused Q6H JOSE Infusion Protocol Lorazepam 0.5 mg 10/18/21 10:58 10/18/21 20:21 Lorazepam 2 Mg/Ml Inj 1 Ml IVP 0.5 mg Q8H PRN Administration ANXIETY Magnesium Oxide 400 mg 10/17/21 20:49 10/19/21 08:25 Magnesium Oxide 400 Mg Tablet PO 400 mg BID JOSE Administration Mirtazapine 7.5 mg 10/17/21 21:00 10/17/21 21:44 Mirtazapine 15 Mg Tablet PO 7.5 mg BEDTIME JOSE Administration Pantoprazole Sodium 40 mg 10/19/21 09:00 10/19/21 08:[address] 40 Mg Tablet PO 40 mg DAILY JOSE Administration Polyethylene Glycol 17 gm 10/18/21 08:00 10/19/21 08:26 Polyethylene Glycol 3350 Pkt 17 Gm PO Not Given DAILY@0800 JOSE Sodium Chloride 4 ml 10/18/21 20:00 10/19/21 08:30 Sodium Chloride 3.5% Neb 4 Ml Neb INHALATION 4 ml BID.RESPIRATORY JOSE Administration PFSH Acute PFSH: Medical History Acute UTI Anxiety Atrial fibrillation CAD (coronary artery disease) Chronic anticoagulation Constipation Diverticulosis Dysphagia Dysphagia Dysrhythmia GERD (gastroesophageal reflux disease) Gross hematuria H/O: CVA (cerebrovascular accident) Hypercholesterolemia Hypertension Other microscopic hematuria Pacemaker Recurrent UTI Renal artery stenosis Urolithiasis Weakness due to cerebrovascular accident Surgical History H/O colonoscopy yrs ago H/O esophagogastroduodenoscopy never had one H/O mitral valve replacement H/O prosthetic mitral valve History of appendectomy History of hysterectomy History of renal stent History of tonsillectomy Family History Brother Cancer Hyperlipidemia Father Heart disease Stroke Sister Bleeding disorder hemorrhaged Other CAD (coronary artery disease) Hypertension Denies family history of Anesthesia complication Social History Smoking and tobacco status: never smoked Alcohol intake: never Lives independently: No Household members: spouse Housing: House Marital status: Current occupational status: disabled Current gender identity: Female Vitals/I&O/Wt Last Vital Signs Temp 97.0 F L 10/19/21 14:57 Pulse 67 10/19/21 14:57 Resp 19 H 10/19/21 14:57 BP 109/53 10/19/21 14:57 Pulse Ox 98 10/19/21 14:57 10/19/21 10/19/21 10/19/21 06:59 14:59 22:59 Intake Total 500 / 500 Output Total 350 / 2250 Balance -350 / -1848.92 500 / 500 Physical Exam Const: OTHER: PHYSICAL EXAM: General: lying in bed, follows commands, keeps her eyes closed during communication HEENT:NCAT, PERRLA, EOMI Neck: Supple Lungs: Decreased breath sounds on left side Heart: s1/s2, RRR Abd: soft, NT, ND, BS + Normoactive Extremities: No edema CONTENT DESIGNER: Left-sided hemiplegia SKIN: no rash Urinary Catheter Management: Morton: Cath Placed During This Visit: yes Reason for Continuing Indwelling Catheter: Accurate Measurement of Urinary Output in Critically Ill Patients Urinary Catheter Date of Insertion: 10/17/21 Data : 10/19/21 04:20 10/19/21 04:20 Other Labs: Radiology Impressions Chest CT 10/18/21 11:20 IMPRESSION: 1. Moderate to large bilateral pleural effusions. 2. Compressive atelectasis in both lungs. Extensive atelectasis in the left upper and lower lobes is likely both compressive and postobstructive. Pneumonitis is not excluded. 3. Mucus secretions in the trachea and left main bronchus. 4. Mediastinal lymphadenopathy. 5. Cardiomegaly. 6. Additional nonacute findings, as above. Chest X-Ray 10/19/21 07:02 IMPRESSION: 1. Improved aeration of the left lung. The left upper lobe is relatively well ventilated. There is still consolidation and atelectasis in the left lower lobe and moderate size left pleural effusion. 2. Diffuse infiltrate in the right lower lobe and right basal pleural effusion. This is unchanged. Laboratory Results WBC 21.8 10^3/uL (4.0-10.0) H 10/19/21 04:20 RBC 3.23 10^6/uL (4.1-5.3) L 10/19/21 04:20 Hgb 10.1 g/dL (11.5-15.3) L 10/19/21 04:20 Hct 32.4 % (37.0-47.0) L 10/19/21 04:20 MCV 100.3 fl (81-99) H 10/19/21 04:20 MCH 31.3 pg (28.0-34.0) 10/19/21 04:20 MCHC 31.2 g/dL (30.0-36.0) 10/19/21 04:20 RDW 15.0 % (12.1-15.1) 10/19/21 04:20 Plt Count 395 10^3/cmm (130-400) 10/19/21 04:20 MPV 11.0 fL (7.4-10.4) H 10/19/21 04:20 Neut % (Auto) 87.1 % 10/19/21 04:20 Lymph % (Auto) 7.3 % 10/19/21 04:20 [place] % (Auto) 3.9 % 10/19/21 04:20 Eos % (Auto) 1.0 % 10/19/21 04:20 Baso % (Auto) 0.3 % 10/19/21 04:20 Neut # (Auto) 18.97 10^3/uL (1.8-7.7) H 10/19/21 04:20 Lymph # (Auto) 1.6 10^3/uL (0.8-4.8) 10/19/21 04:20 [place] # (Auto) 0.8 10^3/uL (0.2-0.9) 10/19/21 04:20 Eos # (Auto) 0.2 10^3/uL (0.0-0.8) 10/19/21 04:20 Baso # (Auto) 0.1 10^3/uL (0.0-0.1) 10/19/21 04:20 Nucleated RBC % (auto) 0 % 10/19/21 04:20 Nucleated RBCs # 0.0 /100WBC 10/19/21 04:20 Sodium 145 mmol/L (136-145) 10/19/21 04:20 Potassium 4.1 mmol/L (3.5-5.1) 10/19/21 04:20 Chloride 103 mmol/L (98-107) 10/19/21 04:20 Carbon Dioxide 33 mmol/L (22-29) H 10/19/21 04:20 Anion Gap 17.1 (5-19) 10/19/21 04:20 BUN 16 mg/dL (8-23) 10/19/21 04:20 Creatinine 0.8 mg/dL (0.5-0.9) 10/19/21 04:20 GFR Calculation Not Reportable 10/19/21 04:20 Glucose 66 mg/dL (65-115) 10/19/21 04:20 Calculated Osmolality 299 mOsm/kg (285-295) H 10/19/21 04:20 Lactic Acid 2.0 mmol/L (0.5-2.2) 10/17/21 11:55 Calcium 8.4 mg/dL (8.5-10.5) L 10/19/21 04:20 Magnesium 1.8 mg/dL (1.7-2.3) 10/18/21 06:42 Total Bilirubin 0.7 mg/dL (0.15-1.2) 10/18/21 06:42 AST 27 U/L (0-32) 10/18/21 06:42 ALT 12 U/L (0-33) 10/18/21 06:42 Alkaline Phosphatase 188 IU/L (35-105) H 10/18/21 06:42 Troponin T Baseline 63 ng/L (0-10) H 10/17/21 10:35 Troponin T 120 Minute 70.12 ng/L (0-10) H 10/17/21 12:44 Delta Troponin T 7.12 ABS# (0-10) 10/17/21 12:44 Troponin T Hi Sens 6Hr 63.60 ng/L (0-10) H 10/17/21 19:53 Troponin T Hi Sens 6Hr Delta 0.60 ng/L (0-12) 10/17/21 19:53 NT-Pro-B Natriuret Pep 2738 pg/mL (0-450) H 10/17/21 10:35 Total Protein 6.5 g/dL (6.6-8.7) L 10/18/21 06:42 Albumin 3.0 g/dL (3.5-5.2) L 10/18/21 06:42 Globulin 3.5 g/dL (1.3-4.6) 10/18/21 06:42 Procalcitonin 0.11 ng/mL (0-0.5) 10/17/21 10:35 TSH 0.41 uIU/mL (0.27-4.20) 10/17/21 10:35 TSH Cancelled 10/17/21 10:35 Urine Color Yellow (Yellow) 10/17/21 11:47 Urine Appearance Cloudy (CLEAR) 10/17/21 11:47 Urine pH 5 (5-7) 10/17/21 11:47 Ur Specific [place] 1.015 (1.005-1.030) 10/17/21 11:47 Urine Protein Trace (Negative) 10/17/21 11:47 Urine Glucose (UA) Norm (Normal) 10/17/21 11:47 Urine Ketones Negative (Negative) 10/17/21 11:47 Urine Blood 3+ (Negative) H 10/17/21 11:47 Urine Nitrate Negative (Negative) 10/17/21 11:47 Urine Bilirubin Neg (Negative) 10/17/21 11:47 Urine Urobilinogen Norm mg/dL (Negative) 10/17/21 11:47 Ur Leukocyte Esterase 1+ (Negative) H 10/17/21 11:47 Urine RBC 15-25 /hpf (0-2) H 10/17/21 11:47 Urine WBC 15-25 /hpf (0-5) H 10/17/21 11:47 Ur Squamous Epith Cells 0-4 /hpf (0-5) H 10/17/21 11:47 Amorphous Sediment Not Reportable 10/17/21 11:47 Urine Bacteria 2+ /hpf (NONE) H 10/17/21 11:47 Urine Yeast Trace /hpf 10/17/21 11:47 Micro: Microbiology 10/17/21 19:48 Blood Culture - Preliminary Blood Coagulase negativ staphylococc 10/17/21 19:53 Blood Culture - Preliminary Blood Coagulase negativ staphylococc 10/17/21 11:47 Urine Culture - Final Urine,Clean Catch A&P Assessment and plan (1) Mucus plugging of bronchi: Status: Acute (2) Dysphagia: Status: Acute (3) H/O: CVA (cerebrovascular accident): Status: Acute (4) Atrial fibrillation: Status: Acute (5) C. difficile diarrhea: Status: Acute Plan #CT evidence of compressive atelectasis in both lungs. Extensive atelectasis in the left upper and lower lobes is likely both compressive and postobstructive. Mucus secretions in the trachea and left main bronchus. #At risk for aspiration due to underlying CVA with left hemiplegia #Suspected aspiration pneumonia/HAP # -placed on Mucomyst, hypertonic saline and chest physiotherapy it improved her left upper lobe aeration but there was still some consolidation/atelectasis of left lower lobe. - plan is to proceed with bronchoscopy for airway clearance today afternoon - currently she is requiring 5 L nasal cannula. -Speech therapy evaluated today morning recommended. Dysphagia diet and nectar thick liquid -Follow aspiration precautions -Continue Mucomyst/hypertonic saline nebulizations twice daily and chest physiotherapy 3 times daily -Currently covered with linezolid and imipenem-I will send for BAL cultures and can de-escalate antibiotics #A. fib-currently rate controlled and in sinus rhythm #Concern for LV thrombus and was placed on Eliquis at [facility] couple of months ago #There is a concern that patient may have endocarditis and prosthetic mitral valve and received antibiotics-followed with C. difficile diarrhea -Echocardiogram here on admission as more artifact as patient was combative- could not see any LV thrombus -S/p post cardioversion in the ER -Currently on p.o. amiodarone 400 Mg twice daily -Appreciate cardiology recommendations -Currently on cardiac monitoring-potassium 4.1 and magnesium 1.8-monitor electrolytes and supplement accordingly -Currently on full dose anticoagulation-can switch to p.o. Eliquis -She is on Lasix 20 Mg daily-net -2.2 L-hold Lasix for now #Upon review of CT chest 10/09/2021 she had bilateral small pleural effusions and has part solid density in the lateral left upper lobe with slightly irregular margins measuring 17 x 11 mm. Another part solid nodular density in anterior right upper lobe measuring 10 x 8 and few right upper lobe 1 to 2 mm tiny densities. -Repeat CT chest in 3 to 6 months to follow-up on part solid nodules #C. difficile diarrhea -currently on IV Flagyl 500 every 8 hours ICU CHECKLIST: Problem list updated Verbal orders reviewed and signed Analgesia: N/A Glycemic Control: Not required Nutrition: Pur?ed diet Restraint Renewal (within 24 hrs): No Ulcer Prophylaxis: PPI Chemical Thromboprophylaxis: Prophylaxis: On Lovenox Mechanical Thromboprophylaxis: {Mechanical DVT:03894} Need for Central line: {central line need:38839} Need for Morton catheter: Present with output monitoring Recommendations conveyed to hospitalist, RN taking care of the patient Consult Attestations Medical Necessity Statement: Acute hypoxic respiratory failure secondary to mucous plugging of left lung causing atelectasis-patient with A. fib RVR and C. difficile diarrhea Time Spent in Patient Care: Greater than 35 minutes (>than 50% of time spent in counselling and/or direct pt care on unit) . Critical Care Time: Critical Care Time (No Overlap): 45 min This patient has a high probability of sudden, clinically significant deterioration, which requires the highest level of physician preparedness to intervene urgently. I managed/supervised life or organ supporting interventions that required frequent physician assessment. I devoted my full attention in the ICU to the direct care of this patient for the period of time indicated above. Time I spent with family or surrogate(s) is included only if the patient was incapable of providing necessary information or participating in decision making. Time devoted to teaching and to any procedures I billed separately is not included. Services Provided: Telemetry review Mechanical Ventilation Hemodynamic interpretation, assessment and management Review and interpretation of CXR Review and interpretation of lab values Review and interpretation of microbiologic data and culture results Review of medications and administration Review and interpretation of Nutrition requirements and management Discussion of management with other consultants and services Clinical update to family members Critical Care Time (min): 45 Coding Level of Care Code New Pt Acute Customs Officer for Chg Fwd Patient Type New History Comprehensive Exam Comprehensive Medical Decision Making High Complexity Diagnoses Dysphagia R13.10 H/O: CVA (cerebrovascular accident) Z86.73 Atrial fibrillation I48.91 Mucus plugging of bronchi T17.500A C. difficile diarrhea A04.72 Time Spent (min) 45
[2021-10-19] MEDS: lidocaine 1% INJ 20 mL XX (15:10)
--- NOTE | 2021-10-19 15:49 | PM.OP ---
Operative Report Date of procedure: October 19, 2021 Pre-op diagnosis: Mucous plugging of left lung airways Post-op diagnosis: Same Procedure done: Procedure: Flexible bronchoscopy with airway inspection, airway clearance of secretions and obtaining bronchoalveolar lavage sample Specimens removed/disposition: Bronchoalveolar lavage from left lower lobe Brief History: Freda Kline is a 80 year old female Freda Kline is a 80 year old female with history of CVA with left hemiplegia has extensive atelectasis in the left upper and lower lobes is likely both compressive and postobstructive. Mucus secretions in the trachea and left main bronchus.? Pulmonary consulted for left lung atelectasis with suspected post obstruction.? Procedure: Pre-Operative Diagnosis: Significant mucus impaction of left lung airways Post-Operative Diagnosis: Same Indication: Persistent atelectasis of left lower lobe despite being on airway clearance treatment with Mucinex, hypertonic saline and chest physiotherapy Anesthesia: General-managed as per anesthesia Pre-procedure Evaluation: Patient was evaluated clinically and ancillary testing reviewed. The risk of having active MTB infection is very low in my clinical judgement. Delete Malampati score: unable to evaluate due to presence of endotracheal tube Consent: Consents were obtained from [facility] and placed in the chart Procedure Details: Time out was performed by the procedure team and nursing staff. Vent support maintained on Fio2 100. The bronchoscope was introduced through the ETT. A bronchoscopic airway exam was performed to evaluate the visible tracheobronchial tree to the segmental level. Summary of Significant Findings: -Bronchoscope passed through ET tube, 6 ml 1% lidocaine instilled into the trachea, both right and left main bronchus. Distal trachea and main yara visualized which were sharp and normal. Then the scope was passed through the right bronchial tree was assessed to include the right mainstem bronchus, RBI, and RUL/RML/RLL bronchi to the segmental and subsegmental levels. No active bleeding noted. Mucosa appeared normal. Clear secretions noted through right lower lobe which were suctioned right away. Then the scope was introduced into left bronchial tree was assessed to include the left mainstem bronchus, JUAN CARLOS, Lingula, and LLL bronchi to the segmental and subsegmental level. There were significant thick mucus secretions occluding left main bronchus and all the distal airways. All the secretions were suctioned until the left lower lobe and upper lobe subsegments. No active bleeding noted. Mucosa appeared normal. Clear secretions noted which were suctioned right away. After obtaining BALb from left lower lobe the bronchoscope was then removed and the procedure terminated. Estimated Blood Loss: None Specimens: Bronchoalveolar lavage was taken from left lower lobe and sent for fluid analysis, microbiology cultures and cytology Complications:None; patient tolerated the procedure well. Disposition: Patient will be transferred back to ICU-she can be transferred to floor from pulmonary standpoint Connor Simms MD Pulmonary critical Care Medicine [facility]
--- NOTE | 2021-10-19 16:13 | XRR_ITS ---
PROCEDURE INFORMATION: Exam: XR Chest Exam date and time: 10/19/2021 4:34 PM Age: 80 years old Clinical indication: Device placement; Other: Post bronch; Prior surgery; Surgery date: Post-operative (0-2 days) TECHNIQUE: Imaging protocol: XR of the chest. Views: 1 view. COMPARISON: CR (CHEST, ) 10/19/2021 7:15 AM FINDINGS: Tubes, catheters and devices: A pacemaker device is present, and its leads are in appropriate position. Prosthetic mitral valve is again identified. Lungs: Atelectasis and consolidation left lower lobe and lingula is unchanged. There is calcified granuloma in the left lower lobe not significantly changed. No new infiltrate is identified. Pleural spaces: There is small left and moderate right pleural effusion. Heart/Mediastinum: Heart is within normal limits of size. Bones/joints: Sternotomy wires and mediastinal surgical clips are present, consistent with previous coronary arterial bypass grafting. XR/XR chest 1V portable [id number] IMPRESSION: Bilateral pleural effusions and other findings not significant changed compared with the examination done at 7:21 a.m.
--- NOTE | 2021-10-19 16:26 | ANE.PACU2 ---
Inpatient post-anesthesia follow up: Airway intact: Yes Vital signs: Temperature 97.0 F Pulse Rate [Curren t] 75 Pulse Rate 67 Respiratory Rate [ Current] 18 Respiratory Rate 19 Blood Pressure 109/53 Pulse Oximetry [Cu rrent] 92 Pulse Oximetry 98 Oxygen Delivery Me thod Nasal Cannula Oxygen Flow Rate [ Current] 35 Oxygen Flow Rate 4 Fraction of Inspir ed Oxygen [ 48 Current] Fraction of Inspir ed Oxygen 39 Hydration adequate: Yes Nausea and vomiting: No Pain level: 2 Mental status: Baseline
[2021-10-19 16:44] LABS: Apprearance, Bronch Wash Cloudy (CLEAR); Color, Bronc Wash Slight Pink
[2021-10-19 17:04] LABS: Cyto Order Verification Order Verified
[2021-10-19 18:22] LABS: Total Cells Counted Bronch 200
--- NOTE | 2021-10-19 19:58 | PC.NURSE ---
Pillow under left hip. Pt refuses to be turned, yells in protest. Pt yells at staff from her room, repeating, hey, you.
--- NOTE | 2021-10-19 22:12 | PC.NURSE ---
Pt continues to yell out at staff. When asked if she needs anything, she states, no. Pt refuses to take PO meds at this time.
[2021-10-19] MEDS: ondansetron 2 mg/ML SDV 2 mL 4 MG IVP (22:50)
[2021-10-19] MEDS: zolpidem 5 mg Tablet PO (22:51)
--- NOTE | 2021-10-19 23:06 | PC.NURSE ---
Mia given late. Pt previously refused, but then asked for assistance in sleeping. Pt continues to refuse other PO meds.
[2021-10-20] VITALS (20 sets, daily range): BP systolic 100–150; BP diastolic 48–67; PULSE 60–68; RESP 10–21; TEMP 36.4–36.9; O2SAT 91–96
[2021-10-20] MEDS: metroNIDAZOLE IV 500 MG/100 ML PREMIX 100 MG IV ×3 (02:43→19:05)
[2021-10-20] MEDS: acetylcysteine 200 mg/mL SDV 4 mL 100 MG INHALATION ×5 (03:22→20:18)
[2021-10-20] MEDS: ipratropium-albuterol 3 mL Neb INHALATION ×5 (03:22→20:18)
[2021-10-20 03:29] LABS: Basophils # 0.1 10^3/uL (0.0-0.1); Basophils % 0.4 %; Eosinophils # 0.1 10^3/uL (0.0-0.8); Eosinophils % 0.6 %; Hematocrit 30.9 % (37.0-47.0); Hemoglobin 9.8 g/dL (11.5-15.3); Lymphocytes # 1.6 10^3/uL (0.8-4.8); Lymphocytes % 7.2 %; Mean Corpuscular HGB Conc 31.7 g/dL (30.0-36.0); Mean Corpuscular Hemoglobin 31.3 pg (28.0-34.0); Mean Corpuscular Volume 98.7 fl (81-99); Mean Platelet Volume 10.7 fL (7.4-10.4); Monocytes # 0.8 10^3/uL (0.2-0.9); Monocytes % 3.8 %; Neutrophils # 18.98 10^3/uL (1.8-7.7); Neutrophils % 87.2 %; Nucleated Red Blood Cells % 0 %; Platelet Count 359 10^3/cmm (130-400); Red Blood Count 3.13 10^6/uL (4.1-5.3); Red Cell Distribution Width 15.1 % (12.1-15.1); White Blood Count 21.8 10^3/uL (4.0-10.0)
[2021-10-20 03:50] LABS: Blood Urea Nitrogen 19 mg/dL (8-23); Calcium 7.9 mg/dL (8.5-10.5); Carbon Dioxide 38 mmol/L (22-29); Chloride 100 mmol/L (98-107); Glucose 128 mg/dL (65-115); Osmolality Calculated 304 mOsm/kg (285-295); Sodium 145 mmol/L (136-145)
--- NOTE | 2021-10-20 04:00 | XRR_ITS ---
PROCEDURE INFORMATION: Exam: XR Chest Exam date and time: 10/20/2021 4:01 AM Age: 80 years old Clinical indication: Shortness of breath; Prior surgery; Surgery type: Mitral valve. Pacer; Patient HX: F/u for left mucous plug TECHNIQUE: Imaging protocol: XR of the chest. Views: 1 view. COMPARISON: CR XR chest 1V portable [id number] 10/19/2021 4:34 PM FINDINGS: Lungs: COPD, interstitial disease, chronic granulomatous disease, and asymmetric airspace disease. Pleural spaces: Left pleural effusion with obscuration of the left hemidiaphragm. Interval improvement in right pleural effusion. Heart/Mediastinum: Cardiac silhouette upper limits of normal size. Valve replacement. Pacemaker. Bones/joints: Median sternotomy. Osteopenia and degenerative change. Soft tissues: Right-sided skin folds. Other findings: . XR/XR chest 1V portable [id number] IMPRESSION: 1. COPD, interstitial disease, chronic granulomatous disease, and asymmetric airspace disease. 2. Left pleural effusion with obscuration of the left hemidiaphragm.
--- NOTE | 2021-10-20 05:56 | PC.NURSE ---
Pt tells me that her birthday is in [birth year] and the year is 1997. She knows that her 's name is Imtiaz.
[2021-10-20] MEDS: sodium chloride 3.5% neb 4 mL Neb INHALATION ×2 (07:44→20:18)
--- NOTE | 2021-10-20 08:22 | PC.SOCIAL ---
IMM UPDATED IMM dated, initialed and copy placed in chart and given to patient
[2021-10-20] MEDS: fluoxetine 20 mg Capsule PO (08:29)
[2021-10-20] MEDS: carvedilol 6.25 mg Tablet PO ×2 (08:29→17:18)
[2021-10-20] MEDS: pantoprazole DR 40 mg Tablet PO (08:30)
[2021-10-20] MEDS: magnesium oxide 400 mg tablet PO ×2 (08:30→17:18)
[2021-10-20] MEDS: cyanocobalamin 1,000 mcg Tablet 1000 MCG PO (08:30)
[2021-10-20] MEDS: potassium chloride ER 20 mEq Tablet 40 MEQ PO (08:30)
[2021-10-20] MEDS: polyethylene glycol 3350 Pkt 17 gm PO (08:30)
[2021-10-20] MEDS: FUROsemide 20 mg Tablet PO (08:30)
[2021-10-20] MEDS: enoxaparin 60 mg/0.6 mL Syringe SUBCUT ×2 (08:31→20:41)
[2021-10-20] MEDS: linezolid premix 600 MG/300 ML PREMIX 300 MG IV (09:50)
--- NOTE | 2021-10-20 13:08 | PM.PN ---
Subjective Subjective: Patient is doing well, currently on 4 L nasal cannula Active diarrhea Continue p.o. vancomycin, IV metronidazole has been added to her broad-spectrum antibiotics for severe C. difficile infection Her leukocytosis could be related to mucous plug left-sided pneumonia Clinically she is doing better, hemodynamically stable Vitals/I&O/Wt Last Vital Signs Temp 97.6 F 10/20/21 04:00 Pulse 62 10/20/21 11:05 Resp 16 10/20/21 11:05 BP 113/59 10/20/21 06:00 Pulse Ox 96 10/20/21 11:05 10/19/21 10/20/21 10/20/21 22:59 06:59 14:59 Intake Total 500 / 1000 545 / 1545 420 / 420 Output Total 900 / 900 305 / 1205 Balance -400 / 100 240 / 340 420 / 420 Weight last 48 hrs Weight 51.437 kg Physical Exam Narrative: Left-sided hemiplegia Dysphagia Hemodynamically stable No new focal deficit Patient endorsing feeling better Awake and alert No new focal deficit Abdomen soft Rectal tube with liquid stool Abdomen soft Looks euvolemic Urinary Catheter Management: Morton: Cath Placed During This Visit: yes Reason for Continuing Indwelling Catheter: Accurate Measurement of Urinary Output in Critically Ill Patients Urinary Catheter Date of Insertion: 10/17/21 Data : 10/20/21 03:00 10/20/21 03:00 Micro: Microbiology 10/19/21 15:18 Gram Stain - Final Lung Left Upper Lobe Bronchoalveolar Lavage Culture - Preliminary 10/19/21 10:50 MRSA Culture - Final Nose 10/17/21 19:48 Blood Culture - Preliminary Blood Coagulase negativ staphylococc 10/17/21 19:53 Blood Culture - Preliminary Blood Coagulase negativ staphylococc 10/17/21 11:47 Urine Culture - Final Urine,Clean Catch A&P Assessment and plan (1) Mucus plugging of bronchi: Status: Acute (2) Dementia: Status: Acute (3) Renal artery stenosis: Status: Acute (4) H/O prosthetic mitral valve: Status: Acute (5) Pacemaker: Status: Acute (6) H/O: CVA (cerebrovascular accident): Status: Acute (7) Dysphagia: Status: Acute (8) Atrial fibrillation: Status: Acute Plan Left-sided mucous plug Status post bronchoscopy by Dr. Simms 10/19 Currently on 4 L nasal cannula X-ray showing resolution A. fib without RVR continue amiodarone Coreg C. difficile diarrhea continue p.o. vancomycin Aspiration pneumonia and mucous plug Continue Primaxin for now discontinue linezolid MRSA negative Recurrent UTI currently on Primaxin Severe C. difficile continue p.o. vancomycin and IV metronidazole Dementia with delirium Geodon and Xanax for anxiety Full code Plan to discharge her on Friday Dysphagia diet. [place] thick liquid with pur?ed diet Attestations Medical Necessity Statement*: Transfer out of ICU Time Spent in Patient Care: 30 Coding Level of Care Code Acute Housing Counselor for Chg Fwd Diagnoses Mucus plugging of bronchi T17.500A Dementia F03.90 Renal artery stenosis I70.1 H/O prosthetic mitral valve Z95.2 Pacemaker Z95.0 H/O: CVA (cerebrovascular accident) Z86.73 Dysphagia R13.10 Atrial fibrillation I48.91
[2021-10-20] MEDS: LORazepam 2 mg/mL INJ 1 mL 0.5 MG IVP (13:32)
--- NOTE | 2021-10-20 18:29 | P.PN_ITS ---
Subjective Subjective: Cardiology coverage Patient with multiple medical problems-chronic atrial fibrillation, on oral anticoagulation, status post permanent pacemaker [place], status post prosthetic mitral valve replacement, CVA with residual motor weakness, C. difficile diarrhea, dementia , etc. Denies any chest pain or chest tightness at this time. No unusual shortness of breath. Her vital signs are stable. Telemetry shows atrial fibrillation with a controlled ventricular response rate. Medications: Medication Review Details: Current Medications Acetylcysteine (Acetylcysteine 200 Mg/Ml Sdv 4 Ml) 100 mg INHALATION Q4H.RESPIRATORY JOSE Last Admin: 10/20/21 15:39 Dose: 100 mg Documented by: Albuterol/Ipratropium (Ipratropium-Albuterol 3 Ml Neb) 3 ml INHALATION Q4H.RESPIRATORY [facility] Last Admin: 10/20/21 15:39 Dose: 3 ml Documented by: Amiodarone HCl (Amiodarone 200 Mg Tablet) 400 mg PO DAILY [facility] Atorvastatin Calcium (Atorvastatin 40 Mg Tablet) 80 mg PO BEDTIME [facility] Last Admin: 10/19/21 22:17 Dose: Not Given Documented by: Carvedilol (Carvedilol 6.25 Mg Tablet) 6.25 mg PO BID [facility] Last Admin: 10/20/21 17:18 Dose: 6.25 mg Documented by: Cyanocobalamin (Cyanocobalamin 1,000 Mcg Tablet) 1,000 mcg PO DAILY@0800 [facility] Last Admin: 10/20/21 08:30 Dose: 1,000 mcg Documented by: Enoxaparin Sodium (Enoxaparin 60 Mg/0.6 Ml Syringe) 60 mg SUBCUT Q12H [facility] Last Admin: 10/20/21 08:31 Dose: 60 mg Documented by: Fluoxetine HCl (Fluoxetine 20 Mg Capsule) 20 mg PO DAILY [facility] Last Admin: 10/20/21 08:29 Dose: 20 mg Documented by: Furosemide (Furosemide 20 Mg Tablet) 20 mg PO DAILY@0800 [facility] Last Admin: 10/20/21 08:30 Dose: 20 mg Documented by: Metronidazole (Flagyl Iv) 500 mg in 100 mls @ 100 mls/hr IV Q8H [facility]; Protocol Last Infusion: 10/20/21 13:46 Dose: Infused Documented by: Linezolid (Zyvox Premix) 600 mg in 300 mls @ 300 mls/hr IV Q12H [facility]; Protocol Last Infusion: 10/20/21 11:25 Dose: Infused Documented by: Imipenem/Cilastatin Sodium 250 (mg/ Sodium Chloride) 100 mls @ 200 mls/hr IV Q6H [facility]; Protocol Last Infusion: 10/20/21 17:14 Dose: Infused Documented by: Lidocaine HCl (Lidocaine 2% Viscous 15 Ml Udc) 1 ml TOPICAL PRN PRN PRN Reason: Anesthetic prior to IV start Lorazepam (Lorazepam 2 Mg/Ml Inj 1 Ml) 0.5 mg IVP Q8H PRN PRN Reason: ANXIETY Last Admin: 10/20/21 13:32 Dose: 0.5 mg Documented by: Magnesium Oxide (Magnesium Oxide 400 Mg Tablet) 400 mg PO BID [facility] Last Admin: 10/20/21 17:18 Dose: 400 mg Documented by: Mirtazapine (Mirtazapine 15 Mg Tablet) 7.5 mg PO BEDTIME [facility] Last Admin: 10/19/21 22:17 Dose: Not Given Documented by: Morphine Sulfate (Morphine 4 Mg/Ml Sdv 1 Ml) 0 mg IVP Q5M PRN PRN Reason: Breakthrough Pain PACU PhaseII Ondansetron HCl (Ondansetron 2 Mg/Ml Sdv 2 Ml) 4 mg IVP Q8H PRN PRN Reason: vomiting, or N/V if npo Last Admin: 10/19/21 22:50 Dose: 4 mg Documented by: Pantoprazole Sodium (Pantoprazole Dr 40 Mg Tablet) 40 mg PO DAILY [facility] Last Admin: 10/20/21 08:30 Dose: 40 mg Documented by: Polyethylene Glycol (Polyethylene Glycol 3350 Pkt 17 Gm) 17 gm PO DAILY@0800 [facility] Last Admin: 10/20/21 08:30 Dose: 17 gm Documented by: Senna (Sennosides 8.6 Mg Tablet) 17.2 mg PO BID@0800,2000 PRN PRN Reason: Constipation Sodium Chloride (Sodium Chloride 3.5% Neb 4 Ml Neb) 4 ml INHALATION BID .RESPIRATORY [facility] Last Admin: 10/20/21 07:44 Dose: 4 ml Documented by: Zolpidem Tartrate (Zolpidem 5 Mg Tablet) 5 mg PO BEDTIME [facility] Last Admin: 10/19/21 22:51 Dose: 5 mg Documented by: Vitals/I&O/Wt Last Vital Signs Temp 97.6 F 10/20/21 04:00 Pulse 66 10/20/21 16:00 Resp 20 H 10/20/21 16:00 BP 113/59 10/20/21 06:00 Pulse Ox 93 10/20/21 16:00 10/20/21 10/20/21 10/20/21 06:59 14:59 22:59 Intake Total 545 / 1545 640 / 640 120 / 760 Output Total 305 / 1205 200 / 200 Balance 240 / 340 640 / 640 -80 / 560 Weight last 48 hrs Weight 113 lb 6.4 oz Physical Exam Narrative: GENERAL: The patient is alert . Not in any acute distress. [] HEENT: Moderate pallor with no icterus or lymphadenopathy.Oral cavity: There are no mucous membrane lesions. NECK: Trachea appears to be central. No masses noted. No JVD or thyromegaly appreciated. RESPIRATORY: Chest is symmetrical. No intercostals muscle retraction or any accessory muscle activation. There is no chest wall tenderness. Breath sounds are heard bilaterally. No rales or rhonchi heard. No evidence of any consolidation. [] BREASTS: Deferred. [] HEART: The first heart sound is variable. Second heart sound is normal.. No S3 or S4. Short systolic murmur the left sternal border. No diastolic murmurs. ABDOMEN: No vessel pulsations or distention. No tenderness. No organomegaly appreciated. Bowel sounds are normally heard. [] : Deferred. [] RECTAL: Deferred. [] LYMPHATIC: No lymphadenopathy noted in the neck. EXTREMITIES: No edema or cyanosis. No clubbing. MUSCULOSKELETAL: No acute joint deformities or swelling SKIN: There are no significant rashes or ecchymosis NEUROPSYCHIATRIC: The patient is alert with dementia. Urinary Catheter Management: Morton: Cath Placed During This Visit: yes Reason for Continuing Indwelling Catheter: Accurate Measurement of Urinary Output in Critically Ill Patients Urinary Catheter Date of Insertion: 10/17/21 Data : 10/20/21 03:00 10/20/21 03:00 Micro: Microbiology 10/19/21 15:18 Gram Stain - Final Lung Left Upper Lobe Bronchoalveolar Lavage Culture - Preliminary 10/19/21 10:50 MRSA Culture - Final Nose 10/17/21 19:48 Blood Culture - Preliminary Blood Coagulase negativ staphylococc 10/17/21 19:53 Blood Culture - Preliminary Blood Coagulase negativ staphylococc A&P Assessment and plan (1) Atrial fibrillation: Patient is on amiodarone 400 mg p.o. daily. Ventricular rate is under control. May continue on the current dose of the medication. Status: Acute (2) H/O prosthetic mitral valve: Patient is on subcu Lovenox at this time. Status: Acute (3) H/O: CVA (cerebrovascular accident): Has not had any recurrence of CVA. Status: Acute (4) Hypercholesterolemia: Patient is on atorvastatin which may be continued. Status: Acute (5) Hypertension: The blood pressure is currently normotensive. Status: Acute (6) Dementia: Status: Acute Plan Other problems are--- C. difficile diarrhea Anemia Hypokalemia Leukocytosis Patient may continue on the current treatment modalities. We will cover the hypokalemia Attestations Medical Necessity Statement*: Disposition as per the primary Coding Level of Care Code Acute Mobile Heavy Equipment Operator for g Fwd History Expanded Problem Focused Exam Detailed Medical Decision Making Moderate Complexity Diagnoses Dementia F03.90 H/O prosthetic mitral valve Z95.2 H/O: CVA (cerebrovascular accident) Z86.73 Atrial fibrillation I48.91 Hypercholesterolemia E78.00 Hypertension I10
[2021-10-20] MEDS: mirtazapine 15 mg Tablet 7.5 MG PO (20:41)
[2021-10-20] MEDS: atorvastatin 40 mg Tablet 80 MG PO (20:41)
[2021-10-20] MEDS: zolpidem 5 mg Tablet PO (20:41)
[2021-10-20] MEDS: ondansetron 2 mg/ML SDV 2 mL 4 MG IVP (21:17)
--- NOTE | 2021-10-20 22:18 | PC.NURSE ---
report called to NIDHI Sotelo on 10/20/2021 @ 2142.
[2021-10-20] MEDS: apixaban 5 mg Tablet PO (23:48)
[2021-10-21] VITALS (17 sets, daily range): BP systolic 93–138; BP diastolic 58–68; PULSE 62–114; RESP 16–20; TEMP 36.2–36.8; O2SAT 63–97
[2021-10-21] MEDS: acetylcysteine 200 mg/mL SDV 4 mL 100 MG INHALATION ×4 (00:40→12:17)
[2021-10-21] MEDS: ipratropium-albuterol 3 mL Neb INHALATION ×5 (00:40→20:14)
[2021-10-21] MEDS: metroNIDAZOLE IV 500 MG/100 ML PREMIX 100 MG IV ×3 (04:32→18:07)
[2021-10-21 06:08] LABS: Basophils # 0.1 10^3/uL (0.0-0.1); Basophils % 0.4 %; Eosinophils # 0.5 10^3/uL (0.0-0.8); Eosinophils % 3.7 %; Hematocrit 27.8 % (37.0-47.0); Lymphocytes # 1.9 10^3/uL (0.8-4.8); Lymphocytes % 15.3 %; Mean Corpuscular HGB Conc 32.4 g/dL (30.0-36.0); Mean Corpuscular Hemoglobin 31.5 pg (28.0-34.0); Mean Corpuscular Volume 97.2 fl (81-99); Mean Platelet Volume 10.7 fL (7.4-10.4); Monocytes # 0.7 10^3/uL (0.2-0.9); Neutrophils # 8.94 10^3/uL (1.8-7.7); Neutrophils % 74.2 %; Nucleated Red Blood Cells % 0 %; Platelet Count 332 10^3/cmm (130-400); Red Blood Count 2.86 10^6/uL (4.1-5.3); Red Cell Distribution Width 15.2 % (12.1-15.1); White Blood Count 12.1 10^3/uL (4.0-10.0)
[2021-10-21 06:31] LABS: Blood Urea Nitrogen 16 mg/dL (8-23); Calcium 7.9 mg/dL (8.5-10.5); Carbon Dioxide 37 mmol/L (22-29); Chloride 102 mmol/L (98-107); Glucose 82 mg/dL (65-115); Osmolality Calculated 300 mOsm/kg (285-295); Sodium 145 mmol/L (136-145)
[2021-10-21 06:45] LABS: Anion Gap 8.9 (5-19)
[2021-10-21 06:47] LABS: Potassium 2.9 mmol/L (3.5-5.1)
[2021-10-21] MEDS: lidocaine 1% 5 ML in potassium chloride premix 100 ML 25 ML IV ×2 (08:37→13:33)
--- NOTE | 2021-10-21 10:58 | PM.PN ---
Subjective Subjective: This morning patient is laying supine She was complaining about food and was not willing to take her pills Potassium very low repleted After C. difficile diarrhea Leukocytosis improved Afebrile On 3 L nasal cannula Vitals/I&O/Wt Last Vital Signs Temp 98.1 F 10/21/21 08:00 Pulse 65 10/21/21 08:06 Resp 16 10/21/21 08:06 BP 138/58 10/21/21 08:00 Pulse Ox 95 10/21/21 08:06 10/20/21 10/21/21 10/21/21 22:59 06:59 14:59 Intake Total 440 / 1080 250 / 1330 100 / 100 Output Total 250 / 250 225 / 475 Balance 190 / 830 25 / 855 100 / 100 Weight last 48 hrs Weight 53.025 kg Weight 51.437 kg Physical Exam Narrative: Patient is laying supine On 3 L of cannula no active complaint Looks well-hydrated Rectal tube with C. difficile diarrhea Abdomen soft No audible stridor or wheezing No new focal deficit Left-sided hemiplegia Facial droop Urinary Catheter Management: Morton: Cath Placed During This Visit: yes Reason for Continuing Indwelling Catheter: Accurate Measurement of Urinary Output in Critically Ill Patients Urinary Catheter Date of Insertion: 10/17/21 Data : 10/21/21 06:00 10/21/21 06:00 Micro: Microbiology 10/17/21 19:53 Blood Culture - Preliminary Blood Staphylococcus hominis 10/17/21 19:48 Blood Culture - Preliminary Blood Staphylococcus hominis 10/19/21 15:18 Gram Stain - Final Lung Left Upper Lobe Bronchoalveolar Lavage Culture - Final 10/19/21 10:50 MRSA Culture - Final Nose A&P Assessment and plan (1) Mucus plugging of bronchi: Status: Acute (2) Dementia: Status: Acute (3) Renal artery stenosis: Status: Acute (4) H/O prosthetic mitral valve: Status: Acute (5) Pacemaker: Status: Acute (6) H/O: CVA (cerebrovascular accident): Status: Acute (7) Dysphagia: Status: Acute (8) Chronic anticoagulation: Status: Acute (9) Atrial fibrillation: Status: Acute Plan A. fib RVR: Improved currently in sinus rhythm after 3 cardioversions in the ER Continue Eliquis I will discharge her on amiodarone 200 mg daily along with AV arleth blocking agents C. difficile diarrhea: Continue p.o. vancomycin finish 2 weeks regimen Severe C. difficile, she is on IV metronidazole as well as leukocytosis improved Mucous plug status post bronchoscopy Currently on 3 L nasal cannula Hypoxia has improved currently at baseline of 3 L Picky eater, dehydrated, urine color is dark Continue IV fluids Hypokalemia related to diarrhea: Repleted Full code Dysphagia diet Planning to discharge her back to [place] on Friday potassium is better and diarrhea has improved Continue IV fluid Attestations Medical Necessity Statement*: Discharge in next [address] Rock garcia Time Spent in Patient Care: 30 Coding Level of Care Code Acute [place] Supervisor for Chg Fwd Diagnoses Mucus plugging of bronchi T17.500A Dementia F03.90 Renal artery stenosis I70.1 H/O prosthetic mitral valve Z95.2 Pacemaker Z95.0 H/O: CVA (cerebrovascular accident) Z86.73 Dysphagia R13.10 Chronic anticoagulation Z79.01 Atrial fibrillation I48.91
[2021-10-21] MEDS: sodium chloride 0.9% 1,000 ML 75 ML IV (12:09)
[2021-10-21] MEDS: acetaminophen 325 mg Tablet PO (16:51)
[2021-10-21] MEDS: LORazepam 2 mg/mL INJ 1 mL 0.5 MG IVP (17:00)
--- NOTE | 2021-10-21 18:50 | P.PN_ITS ---
Subjective Subjective: Patient is complaining of pain all over the body. No fever or chills. Vital signs remained stable. Denies any unusual shortness of breath. Medications: Medication Review Details: Current Medications Acetaminophen (Acetaminophen 325 Mg Tablet) 325 - 650 mg PO Q4H PRN PRN Reason: MILD PAIN OR INCREASE TEMP Last Admin: 10/21/21 16:51 Dose: 650 mg Documented by: Acetylcysteine (Acetylcysteine 200 Mg/Ml Sdv 4 Ml) 100 mg INHALATION Q4H.RESPIRATORY [facility] Last Admin: 10/21/21 15:43 Dose: Not Given Documented by: Albuterol/Ipratropium (Ipratropium-Albuterol 3 Ml Neb) 3 ml INHALATION Q4H.RESPIRATORY [facility] Last Admin: 10/21/21 15:43 Dose: Not Given Documented by: Amiodarone HCl (Amiodarone 200 Mg Tablet) 400 mg PO DAILY [facility] Last Admin: 10/21/21 12:16 Dose: Not Given Documented by: Apixaban (Apixaban 5 Mg Tablet) 5 mg PO BID@0900,2100 [facility] Last Admin: 10/21/21 12:17 Dose: Not Given Documented by: Atorvastatin Calcium (Atorvastatin 40 Mg Tablet) 80 mg PO BEDTIME [facility] Last Admin: 10/20/21 20:41 Dose: 80 mg Documented by: Carvedilol (Carvedilol 6.25 Mg Tablet) 6.25 mg PO BID [facility] Last Admin: 10/21/21 17:04 Dose: Not Given Documented by: Cyanocobalamin (Cyanocobalamin 1,000 Mcg Tablet) 1,000 mcg PO DAILY@0800 [facility] Last Admin: 10/21/21 12:16 Dose: Not Given Documented by: Fluoxetine HCl (Fluoxetine 20 Mg Capsule) 20 mg PO DAILY [facility] Last Admin: 10/21/21 12:17 Dose: Not Given Documented by: Furosemide (Furosemide 20 Mg Tablet) 20 mg PO DAILY@0800 [facility] Last Admin: 10/21/21 12:16 Dose: Not Given Documented by: Metronidazole (Flagyl Iv) 500 mg in 100 mls @ 100 mls/hr IV Q8H [facility]; Protocol Last Admin: 10/21/21 18:07 Dose: 100 mls/hr Documented by: Imipenem/Cilastatin Sodium 250 (mg/ Sodium Chloride) 100 mls @ 200 mls/hr IV Q6H [facility]; Protocol Last Infusion: 10/21/21 14:50 Dose: Infused Documented by: Sodium Chloride (Sodium Chloride 0.9%) 1,000 mls @ 75 mls/hr IV .[id number] [facility] Last Admin: 10/21/21 12:09 Dose: 75 mls/hr Documented by: Lidocaine HCl (Lidocaine 2% Viscous 15 Ml Udc) 1 ml TOPICAL PRN PRN PRN Reason: Anesthetic prior to IV start Lorazepam (Lorazepam 2 Mg/Ml Inj 1 Ml) 0.5 mg IVP Q8H PRN PRN Reason: ANXIETY Last Admin: 10/21/21 17:00 Dose: 0.5 mg Documented by: Magnesium Oxide (Magnesium Oxide 400 Mg Tablet) 400 mg PO BID [facility] Last Admin: 10/21/21 17:04 Dose: Not Given Documented by: Mirtazapine (Mirtazapine 15 Mg Tablet) 7.5 mg PO BEDTIME [facility] Last Admin: 10/20/21 20:41 Dose: 7.5 mg Documented by: Morphine Sulfate (Morphine 4 Mg/Ml Sdv 1 Ml) 0 mg IVP Q5M PRN PRN Reason: Breakthrough Pain PACU PhaseII Ondansetron HCl (Ondansetron 2 Mg/Ml Sdv 2 Ml) 4 mg IVP Q8H PRN PRN Reason: vomiting, or N/V if npo Last Admin: 10/20/21 21:17 Dose: 4 mg Documented by: Pantoprazole Sodium (Pantoprazole Dr 40 Mg Tablet) 40 mg PO DAILY [facility] Last Admin: 10/21/21 12:17 Dose: Not Given Documented by: Polyethylene Glycol (Polyethylene Glycol 3350 Pkt 17 Gm) 17 gm PO DAILY@0800 [facility] Last Admin: 10/21/21 08:04 Dose: Not Given Documented by: Senna (Sennosides 8.6 Mg Tablet) 17.2 mg PO BID@0800,2000 PRN PRN Reason: Constipation Sodium Chloride (Sodium Chloride 3.5% Neb 4 Ml Neb) 4 ml INHALATION BID.RESPIRATORY [facility] Last Admin: 10/21/21 07:58 Dose: Not Given Documented by: Vancomycin HCl (Vancomycin 1,000 Mg Oral Myriam (Btl)) 125 mg PO QID [facility] Last Admin: 10/21/21 16:40 Dose: Not Given Documented by: Zolpidem Tartrate (Zolpidem 5 Mg Tablet) 5 mg PO BEDTIME [facility] Last Admin: 10/20/21 20:41 Dose: 5 mg Documented by: Vitals/I&O/Wt Last Vital Signs Temp 98.3 F 10/21/21 16:00 Pulse 114 H 10/21/21 16:00 Resp 18 10/21/21 16:00 BP 126/66 10/21/21 16:00 Pulse Ox 63 L 10/21/21 16:00 10/21/21 10/21/21 10/21/21 06:59 14:59 22:59 Intake Total 250 / 1330 405 / 405 Output Total 225 / 475 Balance 25 / 855 405 / 405 Weight last 48 hrs Weight 116 lb 14.4 oz Weight 113 lb 6.4 oz Physical Exam Narrative: GENERAL: The patient is alert .? Not in any acute distress. HEENT: Moderate pallor with no icterus or lymphadenopathy.Oral cavity: There are no mucous membrane lesions. NECK: Trachea appears to be central. No masses noted. No JVD or thyromegaly appreciated. RESPIRATORY: Chest is symmetrical. No intercostals muscle retraction or any accessory muscle activation. There is no chest wall tenderness. Breath sounds are heard bilaterally. No rales or rhonchi heard. No evidence of any consolidation. BREASTS: Deferred. HEART: The first heart sound is variable.? Second heart sound is normal..? No S3 or S4. ? Short systolic murmur the left sternal border.? No diastolic murmurs. ABDOMEN: No vessel pulsations or distention. No tenderness. No organomegaly appreciated.? Bowel sounds are normally heard. : Deferred. RECTAL: Deferred. LYMPHATIC: No lymphadenopathy noted in the neck. EXTREMITIES: No edema or cyanosis. No clubbing. MUSCULOSKELETAL: No acute joint deformities or swelling SKIN: There are no significant rashes or ecchymosis NEUROPSYCHIATRIC: The patient is alert with? dementia. Urinary Catheter Management: Morton: Cath Placed During This Visit: yes Reason for Continuing Indwelling Catheter: Accurate Measurement of Urinary Output in Critically Ill Patients Urinary Catheter Date of Insertion: 10/17/21 Data : 10/21/21 06:00 10/21/21 06:00 Micro: Microbiology 10/17/21 19:53 Blood Culture - Preliminary Blood Staphylococcus hominis 10/17/21 19:48 Blood Culture - Preliminary Blood Staphylococcus hominis 10/19/21 15:18 Gram Stain - Final Lung Left Upper Lobe Bronchoalveolar Lavage Culture - Final A&P Assessment and plan (1) Atrial fibrillation: Patient is on amiodarone 400 mg p.o. daily. Ventricular rate is under control. May continue on the current dose of the medication. Patient is in intermittent atrial fibrillation with rapid ventricular rate Status: Acute (2) H/O prosthetic mitral valve: Patient is on Eliquis at this time. Status: Acute (3) H/O: CVA (cerebrovascular accident): Has not had any recurrence of CVA. On oral anticoagulation Status: Acute (4) Hypercholesterolemia: Patient is on atorvastatin which may be continued. Status: Acute (5) Hypertension: Currently normotensive. We will continue the current medications. Status: Acute (6) Dementia: Status: Acute Plan Other problems are--- C. difficile diarrhea Mucous plugging of the bronchi, status post bronchoscopy Anemia Hypokalemia, on potassium supplement Dysphagia Leukocytosis Attestations Medical Necessity Statement*: Disposition as per the primary Coding Level of Care Code Acute Pickup Driver for g Fwd History Expanded Problem Focused Exam Detailed Medical Decision Making Moderate Complexity Diagnoses Atrial fibrillation I48.91 H/O prosthetic mitral valve Z95.2 H/O: CVA (cerebrovascular accident) Z86.73 Hypercholesterolemia E78.00 Hypertension I10 Dementia F03.90
[2021-10-21] MEDS: mirtazapine 15 mg Tablet 7.5 MG PO (20:15)
[2021-10-21] MEDS: zolpidem 5 mg Tablet PO (20:16)
[2021-10-21] MEDS: apixaban 5 mg Tablet PO (20:21)
[2021-10-21 20:41] LABS: Blood Urea Nitrogen 12 mg/dL (8-23); Calcium 6.7 mg/dL (8.5-10.5); Carbon Dioxide 28 mmol/L (22-29); Chloride 111 mmol/L (98-107); Glucose 99 mg/dL (65-115); Osmolality Calculated 298 mOsm/kg (285-295); Sodium 144 mmol/L (136-145)
[2021-10-21 20:51] LABS: Anion Gap 8.4 (5-19); Potassium 3.4 mmol/L (3.5-5.1)
[2021-10-22] VITALS (7 sets, daily range): BP systolic 109–170; BP diastolic 73–82; PULSE 63–67; RESP 16–20; TEMP 36.6–36.9; O2SAT 90–98
[2021-10-22] MEDS: sodium chloride 0.9% 1,000 ML 75 ML IV ×2 (00:11→14:59)
[2021-10-22] MEDS: metroNIDAZOLE IV 500 MG/100 ML PREMIX 100 MG IV ×2 (03:01→11:10)
[2021-10-22 03:42] LABS: Blood Urea Nitrogen 12 mg/dL (8-23); Calcium 7.7 mg/dL (8.5-10.5); Carbon Dioxide 32 mmol/L (22-29); Chloride 107 mmol/L (98-107); Glucose 79 mg/dL (65-115); Osmolality Calculated 299 mOsm/kg (285-295); Sodium 145 mmol/L (136-145)
[2021-10-22 03:43] LABS: Anion Gap 9.5 (5-19); Potassium 3.5 mmol/L (3.5-5.1)
[2021-10-22] MEDS: carvedilol 6.25 mg Tablet PO (08:19)
[2021-10-22] MEDS: amiodarone 200 mg Tablet 400 MG PO (08:19)
[2021-10-22] MEDS: apixaban 5 mg Tablet PO (08:19)
[2021-10-22] MEDS: fluoxetine 20 mg Capsule PO (08:21)
[2021-10-22] MEDS: magnesium oxide 400 mg tablet PO (08:23)
[2021-10-22] MEDS: pantoprazole DR 40 mg Tablet PO (08:24)
[2021-10-22] MEDS: cyanocobalamin 1,000 mcg Tablet 1000 MCG PO (08:25)
[2021-10-22] MEDS: FUROsemide 20 mg Tablet PO (08:25)
[2021-10-22] MEDS: acetylcysteine 200 mg/mL SDV 4 mL 100 MG INHALATION (08:38)
[2021-10-22] MEDS: ipratropium-albuterol 3 mL Neb INHALATION (08:39)
[2021-10-22] MEDS: sodium chloride 3.5% neb 4 mL Neb INHALATION (08:39)
[2021-10-22 11:15] LABS: SARS Covid-2 Antigen Negative (Negative)
--- NOTE | 2021-10-22 12:26 | PM.PN ---
Subjective Subjective: doing well. rate controlled on telemetry Medications: Reviewed: Yes Vitals/I&O/Wt Last Vital Signs Temp 97.9 F 10/22/21 08:00 Pulse 66 10/22/21 08:47 Resp 20 H 10/22/21 08:47 BP 109/75 10/22/21 08:00 Pulse Ox 94 10/22/21 08:47 10/21/21 10/22/21 10/22/21 22:59 06:59 14:59 Intake Total 355 / 760 1102.5 / 1862.5 150 / 150 Output Total 500 / 500 Balance 355 / 760 602.5 / 1362.5 150 / 150 Weight last 48 hrs Weight 125 lb 8 oz Weight 116 lb 14.4 oz Physical Exam Narrative: GENERAL: The patient is alert .? Not in any acute distress. HEENT: Moderate pallor with no icterus or lymphadenopathy. NECK: No JVD or thyromegaly appreciated. RESPIRATORY: Chest is symmetrical. No chest wall tenderness. CTAB/L. No rales or rhonchi heard. HEART: S1, S2 normal.? Short systolic murmur the left sternal border.? ABDOMEN: No vessel pulsations or distention. No tenderness. No organomegaly appreciated.? Bowel sounds are normally heard. EXTREMITIES: No edema or cyanosis. No clubbing. Urinary Catheter Management: Morton: Cath Placed During This Visit: yes Reason for Continuing Indwelling Catheter: Acute Urinary Retention or Obstruction Urinary Catheter Date of Insertion: 10/17/21 Data : 10/21/21 06:00 10/22/21 03:08 Micro: Microbiology 10/17/21 19:53 Blood Culture - Final Blood Staphylococcus hominis 10/17/21 19:48 Blood Culture - Final Blood Staphylococcus hominis 10/19/21 15:18 Gram Stain - Final Lung Left Upper Lobe Bronchoalveolar Lavage Culture - Final A&P Assessment and plan (1) Atrial fibrillation: Patient is on amiodarone 400 mg p.o. daily. Ventricular rate is under control. May continue on the current dose of the medication. 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 (3) H/O: CVA (cerebrovascular accident): Has not had any recurrence of CVA. On oral anticoagulation (4) Hypercholesterolemia: Patient is on atorvastatin which may be continued. (5) Hypertension: Currently normotensive. We will continue the current medications. (6) Dementia: Status: Resolved Plan Other problems are--- C. difficile diarrhea Mucous plugging of the bronchi, status post bronchoscopy Anemia Hypokalemia, on potassium supplement Dysphagia Leukocytosis Attestations Medical Necessity Statement*: discharge per primary team Coding Level of Care Code Acute Enrollment Services Vice President for [facility] Fwd Diagnoses Atrial fibrillation I48.91 H/O prosthetic mitral valve Z95.2 H/O: CVA (cerebrovascular accident) Z86.73 Hypercholesterolemia E78.00 Hypertension I10 Dementia F03.90
--- NOTE | 2021-10-22 13:34 | PC.SOCIAL ---
IMM Update pg 2 of [facility] updated and reviewed w/ patients Imtiaz via telephone. Offered to provided # and he declined. Copy in chart updated and Copy left in room w/ patient.
--- NOTE | 2021-10-22 13:42 | PM.DCS ---
Discharge Providers Date of Admission: 10/17/21 14:20 Date of Discharge: October 22, 2021 Attending Provider at Admission: Anabell Hirsch MD Attending Provider at Discharge: Freedom Robles MD Primary Care Provider: Robin Marroquin DO Diagnoses at Discharge Discharge Diagnosis (1) Atrial fibrillation: Status: Acute (2) H/O prosthetic mitral valve: Status: Acute (3) H/O: CVA (cerebrovascular accident): Status: Acute (4) Hypercholesterolemia: Status: Acute (5) Hypertension: Status: Acute (6) Dementia: Status: Acute Reason for Visit Reason for Visit: RESP DISTRESS Hospital Course Hospital Course -year-old female who was recently discharged from the hospital after management of diarrhea, dehydration, her cause of diarrhea was C. difficile, please note she was at [facility] before that for management of stroke where she was treated for possible endocarditis however punctuation records revealed that vegetation was ruled out with FDG uptake study and she was treated for mitral valve thrombus with Eliquis. On previous admission pacemaker interrogation was unremarkable. She returned back within 2 to 3 days with Zach cyr RVJaki. She was cardioverted 3 times in the ER cardiology was consulted, she converted to sinus rhythm she was started on amiodarone, cardiology recommended 400 mg daily at the time of discharge. I have discontinued her Cardizem long-acting regimen she will stay on Coreg and amiodarone for now onwards. Her heart rate remained in 60s. Please note her diarrhea has not resolved completely and she was experiencing worsening of leukocytosis for which I escalated her vancomycin to 250 mg p.o. regimen at the time of discharge, she received IV metronidazole as well. Her hospitalization was also noticeable for worsening of hypoxia, chest x-ray revealed mucous plug which improved with Mucomyst hypertonic saline and chest physiotherapy, Dr. Simms did bronchoscopy and suction a lot of thick secretions out of her lung as well. She will go back to [place] on 3 L nasal cannula which seems to be her new baseline. As per the family in case she gets worse in future they would like us to give it a try and do CPR, defibrillated her or intubate her in case there is no meaningful recovery then they might opt for DNR/DNI but for now she will be staying full code. Please see cardiology note from day of admission. At the time of discharge medication I am adding p.o. vancomycin 250 mg 4 times daily, potassium supplementation She already takes magnesium and Eliquis at home Discontinued hydrochlorothiazide, Protonix, long-acting Cardizem and stool softeners Medication added: Amiodarone 400 mg daily We will remove rectal tube and Morton catheter before her discharge from the hospital. I have updated her . Physical Exam Narrative: Patient is laying supine On 3 L of cannula no active complaint Looks we ll-hydrated Rectal tube with C. diff icile diarrhea Abd omen soft No audib le stridor or whee zing No new focal deficit Left-sided hemiplegia Facial droop Urinary Catheter Management: Morton: Cath Placed During This Visit: yes, but has since been removed by the nurse Reason for Continuing Indwelling Catheter: Acute Urinary Retention or Obstruction Urinary Catheter Date of Insertion: 10/17/21 Date Urinary Catheter Removed: 10/22/21 Time Urinary Catheter Discontinued: 12:59 Discharge Data Studies Completed and Pending Completed Studies During Hospitalization Category Date Time Status CT chest wo con [id number] Routine Cat Scan 10/18/21 11:20 Completed XR chest 1V portable [id number] Routine Exams 10/18/21 08:07 Completed XR chest 1V portable [id number] Routine Exams 10/19/21 07:02 Completed XR chest 1V portable [id number] Routine Exams 10/19/21 16:13 Completed XR chest 1V portable [id number] Routine Exams 10/20/21 04:00 Completed XR chest 1V portable [id number] Stat Exams 10/17/21 09:39 Completed CV. echo complete* [id number] Urgent Ultrasound 10/18/21 03:32 Completed Pending at discharge Category Date Time Status Cytology [PTH] Routine Pth 10/19/21 15:49 Received Radiology Impressions Chest CT 10/18/21 11:20 IMPRESSION: 1. Moderate to large bilateral pleural effusions. 2. Compressive atelectasis in both lungs. Extensive atelectasis in the left upper and lower lobes is likely both compressive and postobstructive. Pneumonitis is not excluded. 3. Mucus secretions in the trachea and left main bronchus. 4. Mediastinal lymphadenopathy. 5. Cardiomegaly. 6. Additional nonacute findings, as above. Chest X-Ray 10/20/21 04:00 IMPRESSION: 1. COPD, interstitial disease, chronic granulomatous disease, and asymmetric airspace disease. 2. Left pleural effusion with obscuration of the left hemidiaphragm. Laboratory Results WBC 12.1 10^3/uL (4.0-10.0) H 10/21/21 06:00 RBC 2.86 10^6/uL (4.1-5.3) L 10/21/21 06:00 Hgb 9.0 g/dL (11.5-15.3) L 10/21/21 06:00 Hct 27.8 % (37.0-47.0) L 10/21/21 06:00 MCV 97.2 fl (81-99) 10/21/21 06:00 MCH 31.5 pg (28.0-34.0) 10/21/21 06:00 MCHC 32.4 g/dL (30.0-36.0) 10/21/21 06:00 RDW 15.2 % (12.1-15.1) H 10/21/21 06:00 Plt Count 332 10^3/cmm (130-400) 10/21/21 06:00 MPV 10.7 fL (7.4-10.4) H 10/21/21 06:00 Neut % (Auto) 74.2 % 10/21/21 06:00 Lymph % (Auto) 15.3 % 10/21/21 06:00 Real % (Auto) 6.0 % 10/21/21 06:00 Eos % (Auto) 3.7 % 10/21/21 06:00 Baso % (Auto) 0.4 % 10/21/21 06:00 Neut # (Auto) 8.94 10^3/uL (1.8-7.7) H 10/21/21 06:00 Lymph # (Auto) 1.9 10^3/uL (0.8-4.8) 10/21/21 06:00 Real # (Auto) 0.7 10^3/uL (0.2-0.9) 10/21/21 06:00 Eos # (Auto) 0.5 10^3/uL (0.0-0.8) 10/21/21 06:00 Baso # (Auto) 0.1 10^3/uL (0.0-0.1) 10/21/21 06:00 Nucleated RBC % (auto) 0 % 10/21/21 06:00 Nucleated RBCs # 0.0 /100WBC 10/21/21 06:00 Sodium 145 mmol/L (136-145) 10/22/21 03:08 Potassium 3.5 mmol/L (3.5-5.1) 10/22/21 03:08 Chloride 107 mmol/L (98-107) 10/22/21 03:08 Carbon Dioxide 32 mmol/L (22-29) H 10/22/21 03:08 Anion Gap 9.5 (5-19) 10/22/21 03:08 BUN 12 mg/dL (8-23) 10/22/21 03:08 Creatinine 0.6 mg/dL (0.5-0.9) 10/22/21 03:08 GFR Calculation Not Reportable 10/22/21 03:08 Glucose 79 mg/dL (65-115) 10/22/21 03:08 Calculated Osmolality 299 mOsm/kg (285-295) H 10/22/21 03:08 Lactic Acid 2.0 mmol/L (0.5-2.2) 10/17/21 11:55 Calcium 7.7 mg/dL (8.5-10.5) L 10/22/21 03:08 Magnesium 1.8 mg/dL (1.7-2.3) 10/18/21 06:42 Total Bilirubin 0.7 mg/dL (0.15-1.2) 10/18/21 06:42 AST 27 U/L (0-32) 10/18/21 06:42 ALT 12 U/L (0-33) 10/18/21 06:42 Alkaline Phosphatase 188 IU/L (35-105) H 10/18/21 06:42 Troponin T Baseline 63 ng/L (0-10) H 10/17/21 10:35 Troponin T 120 Minute 70.12 ng/L (0-10) H 10/17/21 12:44 Delta Troponin T 7.12 ABS# (0-10) 10/17/21 12:44 Troponin T Hi Sens 6Hr 63.60 ng/L (0-10) H 10/17/21 19:53 Troponin T Hi Sens 6Hr Delta 0.60 ng/L (0-12) 10/17/21 19:53 NT-Pro-B Natriuret Pep 2738 pg/mL (0-450) H 10/17/21 10:35 Total Protein 6.5 g/dL (6.6-8.7) L 10/18/21 06:42 Albumin 3.0 g/dL (3.5-5.2) L 10/18/21 06:42 Globulin 3.5 g/dL (1.3-4.6) 10/18/21 06:42 Procalcitonin 0.11 ng/mL (0-0.5) 10/17/21 10:35 TSH 0.41 uIU/mL (0.27-4.20) 10/17/21 10:35 TSH Cancelled 10/17/21 10:35 Urine Color Yellow (Yellow) 10/17/21 11:47 Urine Appearance Cloudy (CLEAR) 10/17/21 11:47 Urine pH 5 (5-7) 10/17/21 11:47 Ur Specific [place] 1.015 (1.005-1.030) 10/17/21 11:47 Urine Protein Trace (Negative) 10/17/21 11:47 Urine Glucose (UA) Norm (Normal) 10/17/21 11:47 Urine Ketones Negative (Negative) 10/17/21 11:47 Urine Blood 3+ (Negative) H 10/17/21 11:47 Urine Nitrate Negative (Negative) 10/17/21 11:47 Urine Bilirubin Neg (Negative) 10/17/21 11:47 Urine Urobilinogen Norm mg/dL (Negative) 10/17/21 11:47 Ur Leukocyte Esterase 1+ (Negative) H 10/17/21 11:47 Urine RBC 15-25 /hpf (0-2) H 10/17/21 11:47 Urine WBC 15-25 /hpf (0-5) H 10/17/21 11:47 Ur Squamous Epith Cells 0-4 /hpf (0-5) H 10/17/21 11:47 Amorphous Sediment Not Reportable 10/17/21 11:47 Urine Bacteria 2+ /hpf (NONE) H 10/17/21 11:47 Urine Yeast Trace /hpf 10/17/21 11:47 Bronch Specimen Source . 10/19/21 15:18 Bronchial Fluid Color Slight pink 10/19/21 15:18 Bronchial Fluid Appearance Cloudy (CLEAR) 10/19/21 15:18 Bronchial Fluid WBC 31 /uL 10/19/21 15:18 Bronchial Fluid RBC 2 10^3/uL 10/19/21 15:18 Bronch Cells Counted 200 10/19/21 15:18 Bronchial Neutrophils 88.00 % (0.9-2.3) H 10/19/21 15:18 Bronchial Lymphocytes 10.00 % (10.71-12.91) L 10/19/21 15:18 Bronchial Eosinophils 1.00 % (0.13-0.25) H 10/19/21 15:18 Bronchial Macrophages 1.00 % (83.6-86.8) L 10/19/21 15:18 SARS-CoV-2 Ag (Rapid) Negative (Negative) 10/22/21 10:49 Vitals Last Vital Signs Temp 97.9 F 10/22/21 08:00 Pulse 66 10/22/21 08:47 Resp 20 H 10/22/21 08:47 BP 109/75 10/22/21 08:00 Pulse Ox 94 10/22/21 08:47 Discharge Plan Discharge Patient Disposition: Xfer SNF Condition: Stable Prescriptions: New vancomycin 250 mg capsule 250 mg PO Q6H 7 Days Qty: 28 0RF amiodarone 200 mg tablet 400 mg PO DAILY Qty: 90 3RF Continued acetaminophen 325 mg capsule 650 mg PO Q6H PRN (Reason: Pain) 0RF albuterol sulfate [ProAir HFA] 90 mcg/actuation HFA aerosol inhaler 2 puff INHALATION Q6H PRN (Reason: shortness of breath or wheezing) Qty: 6.7 0RF cyanocobalamin (vitamin B-12) [Vitamin B-12] 1,000 mcg Tablet 1,000 mcg PO DAILY@0800 0RF atorvastatin 80 mg Tablet 80 mg PO BEDTIME 0RF carvedilol 6.25 mg Tablet 6.25 mg PO BID 0RF Rx Instructions: must administer with a meal/food fluoxetine 10 mg Tablet 20 mg PO DAILY 0RF lorazepam [Ativan] 0.5 mg Tablet 0.5 mg PO DAILY@0800 0RF ondansetron 4 mg Tablet,Disintegrating 4 mg PO Q6H PRN (Reason: Nausea) 0RF mirtazapine 7.5 mg Tablet 7.5 mg PO BEDTIME 0RF ramelteon 8 mg Tablet 8 mg PO QPM 0RF apixaban 5 mg Tablet 5 mg PO BID 0RF Magnesium Oxide [Magox] 400 mg PO BID Qty: 10 0RF calcium carbonate [Calcium 500] 500 mg calcium (1,250 mg) tablet,chewable 500 mg PO DAILY Qty: 30 0RF multivitamin Tablet 1 tab PO DAILY 0RF Vitamin D3 125 mcg (5,000 unit) Tablet 125 mcg PO DAILY 0RF Ativan 0.5 mg Tablet 0.5 mg PO BID PRN (Reason: Anxiety) 0RF potassium chloride 10 mEq tablet extended release 10 meq PO DAILY Qty: 30 0RF Held sennosides [senna] 8.6 mg tablet 17.2 mg PO BID@00,1999 PRN (Reason: Constipation) 0RF Hold Instructions: Resume on 11/05/21. Discontinued polyethylene glycol 3350 [Miralax] 17 gram/dose powder 17 gm PO DAILY@0800 0RF Hold Instructions: Resume on 11/05/21. diltiazem HCl 240 mg capsule,extended release 24hr 240 mg PO DAILY 0RF pantoprazole 40 mg tablet,delayed release (DR/EC) 40 mg PO BID@799,1999 0RF hydrochlorothiazide 12.5 mg Tablet 12.5 mg PO DAILY 0RF Hold Instructions: Resume on 11/05/21. vancomycin 1,000 mg Recon Soln 125 mg PO QID Qty: 12 0RF Discharge Orders: Discharge Order (Routine); Ordered 10/22/21 Ordered By: Freedom Robles Referrals: [facility] [Outside] Robin Marroquin DO [Primary Care Provider] - Discharge Diet: As Directed Activity Restrictions/Additional Instructions: pureed diet with thickened liquid dc cardizem and po vancomycin 125mg use coreg and amiodarone and po vanc 250mg take potassium if profuse diarrhea>3 episodes a day Discharge Attestations Time Spent in Discharge Care*: less than 30 min Quality Metrics Clinical Quality Measures [ No reported AMI, CVA or VTE this stay] Coding Level of Care Code Acute Chg FW DC note Diagnoses Atrial fibrillation I48.91 H/O prosthetic mitral valve Z95.2 H/O: CVA (cerebrovascular accident) Z86.73 Hypercholesterolemia E78.00 Hypertension I10 Dementia F03.90
--- NOTE | 2021-10-22 16:49 | PC.NURSE ---
Discharge Note Patient discharged to [facility] via ambulance accompanied by ambulance maribel. Discharge instructions reviewed with patient and/or sales representative graphic art. Mobile pharmacy medications and/or prescriptions provided. Belongings/home medications returned.
== END 2021-10-22 16:54 | disposition skilled nursing facility (03) | DRG 308 ==
LOC: ER 17:47 → ICU 19:49 → MEDSURG 10-20 22:14
PROVIDERS: Internal Medicine Cardiovascular Disease; Internal Medicine Pulmonary Disease; Admitting Provider Internal Medicine; Emergency Provider Family Medicine; PCP Internal Medicine; Visit Provider Internal Medicine
PROC: 0BJ08ZZ Inspection of Tracheobronchial Tree, Via Natural or Artificial Opening Endoscopic (ICD-10-PCS; CPT 31622; principal; 2021-10-19 15:00)
DX: I48.91 Unspecified atrial fibrillation (principal); J18.9 Pneumonia, unspecified organism; I69.954 Hemiplegia and hemiparesis following unspecified cerebrovascular disease affecting left non-dominant side; I13.0 Hypertensive heart and chronic kidney disease with heart failure and stage 1 through stage 4 chronic kidney disease, or unspecified chronic kidney disease; N39.0 Urinary tract infection, site not specified; A04.72 Enterocolitis due to Clostridium difficile, not specified as recurrent; J98.11 Atelectasis; F41.8 Other specified anxiety disorders; I25.10 Atherosclerotic heart disease of native coronary artery without angina pectoris; K21.9 Gastro-esophageal reflux disease without esophagitis; I69.991 Dysphagia following unspecified cerebrovascular disease; R13.10 Dysphagia, unspecified; I50.9 Heart failure, unspecified; N18.9 Chronic kidney disease, unspecified; Z95.0 Presence of cardiac pacemaker; Z95.2 Presence of prosthetic heart valve; Z87.01 Personal history of pneumonia (recurrent); F03.90 Unspecified dementia, unspecified severity, without behavioral disturbance, psychotic disturbance, mood disturbance, and anxiety; E78.5 Hyperlipidemia, unspecified; Z79.51 Long term (current) use of inhaled steroids; E87.6 Hypokalemia; I70.1 Atherosclerosis of renal artery; Z87.440 Personal history of urinary (tract) infections; E78.00 Pure hypercholesterolemia, unspecified; Z86.718 Personal history of other venous thrombosis and embolism; K57.90 Diverticulosis of intestine, part unspecified, without perforation or abscess without bleeding
CPT/HCPCS: 31624; 36415; 36569; 36592; 51702; 71045; 71250; 80048; 80053; 80503; 81001; 83605; 83735; 83880; 84145; 84443; 84484; 85025; 87040; 87070; 87077; 87086; 87150; 87186; 87205; 87426; 87641; 88108; 88305; 89050; 92523; 92526; 92610; 93005; 93306; 94640; 94664; 94669; 96365; 96366; 96367; 96372; 96375; 99291; C9113; J0153; J0330; J0743; J1160; J1650; J1940; J2020; J2060; J2250; J2405; J2704; J3370; J3480; J3490; J7030; J7608; S0030